=== PATIENT | female | born 1945 | race Caucasian/White ===

== ENCOUNTER 2017-10-04 07:06 | Inpatient (IN) | payer MEDICARE, BC ==
[~2017-10-04 07:06] MED LIST: Bisacodyl 5 MG Tab PO PRN; Ketorolac 15 MG/ML SDV IVPUSH PRN; Lactated Ringers 1,000 ML IV SCH; Lidocaine 1%/Sod Bicarbonate in NS 8.4% 1 ML Syringe IDERM PRN; Magnesium Hydroxide 400 MG/5 ML Susp 30 ML Cup PO PRN; Morphine 2 MG/ML Syringe IVPUSH PRN; Naloxone 0.4 MG/ML SDV IVPUSH PRN; Ondansetron 4 MG/2 ML SDV IVPUSH PRN; Sennosides 8.6 MG Tab PO PRN; Sodium Chloride 0.9% 10 ML Syringe FLUSH PRN
[2017-10-04] MEDS ORDERED: oxyCODONE ER 10 MG TAB.ER PO SCH (08:00)
[2017-10-04] MEDS ORDERED: Pregabalin 25 MG Cap PO SCH (08:00)
[2017-10-04] MEDS ORDERED: Acetaminophen 325 MG Tab PO SCH (09:00)
[2017-10-04] MEDS ORDERED: Propofol 200 MG/20 ML SDV ONE ×2 (09:43→12:02)
[2017-10-04] MEDS ORDERED: fentaNYL 100 MCG/2 ML SDV ONE (09:43)
[2017-10-04] MEDS ORDERED: Bupivacaine 0.75% 30 ML SDV ONE (09:45)
[2017-10-04] MEDS: Bupivacaine 0.25% 30 ML SDV ONE ×2 (11:22→12:05)
[2017-10-04] MEDS: Morphine 8 MG, EPINEPHrine 0.3 MG, Cefuroxime 750 MG, Ketorolac 30 MG, Sodium Chloride ... ONE ×10 (11:23→12:05)
[2017-10-04] MEDS: ceFAZolin 1 GM Vial ONE ×2 (11:23→12:00)
[2017-10-04] MEDS: Iodine/Sodium Iodide 2% Tincture 30 ML Bottle ONE ×2 (11:24→11:57)
[2017-10-04] MEDS ORDERED: Ondansetron 4 MG/2 ML SDV ONE (11:26)
[2017-10-04] MEDS ORDERED: Lidocaine 1% 4 ML ONE (11:26)
[2017-10-04] MEDS ORDERED: ceFAZolin 1 GM Vial ONE (11:26)
[2017-10-04] MEDS: Vancomycin 1 GM SDV ONE ×2 (11:33→12:06)
[2017-10-04] MEDS ORDERED: ePHEDrine/Normal Saline 25 MG/5 ML Syringe ONE (11:52)
--- NOTE | 2017-10-04 12:23 | PCM.PREANE ---
Preanesthetic Assessment - Procedure Proposed Procedure: Right total hip arthroplasty - Anesthesia/Transfusion/Family Hx Anesthesia History: Prior Anesthesia Reaction Type of Anesthesia Reaction: Excessive Somnolence, Excessive Nausea/Vomiting ( with her back fusion ) Other Type of Anesthesia Reaction Comment: hard time waking up Family History of Anesthesia Reaction: No Transfusion History: No Prior Transfusion(s) Additional History: L4-5 lumbar fusion last year, denies any current radiculopathy - Review of Systems General: No Symptoms Pulmonary: No Symptoms Cardiovascular: Other (HTN, HLD) Gastrointestinal: Other (GERD) Neurological: No Symptoms Other: Reports: Depression - Physical Assessment NPO Status Date: 10/04/17 NPO Status Time: 06:45 O2 Sat by Pulse Oximetry: 96 Respiratory Rate: 20 Vital Signs: Last Vital Signs Temp 36.3 C 10/04/17 08:40 Pulse 73 10/04/17 08:40 Resp 20 10/04/17 08:40 BP 165/74 H 10/04/17 08:40 Pulse Ox 96 10/04/17 08:40 Height: 1.6 m Weight: 97 kg ASA Class: 2 Mental Status: Alert & Oriented x3 Airway Class: Mallampati = 2 Dentition: Reports: Normal Dentition Thyro-Mental Finger Breadths: 3 Mouth Opening Finger Breadths: 3 ROM/Head Extension: Full Lungs: Clear to Auscultation, Normal Respiratory Effort Cardiovascular: Regular Rate, Regular Rhythm - Lab Values: Laboratory Last Values MRSA (PCR) Negative 09/21/17 16:16 Blood Type A NEGATIVE 10/04/17 09:10 Gel Antibody Screen Negative 10/04/17 09:10 - Allergies Allergies/Adverse Reactions: Allergies Allergy/AdvReac Type Severity Reaction Status Date / Time tetanus toxoid, adsorbed Allergy ARM Verified 10/04/17 09:26 SWELLING, FEVER - Blood Blood Available: No Product(s) Available: None - Anesthesia Plan Pre-Op Medication Ordered: None - Acknowledgements Anesthesia Type Planned: Spinal (will eleminate duramorph due to patient being easily nauseated) Pt an Appropriate Candidate for the Planned Anesthesia: Yes Alternatives and Risks of Anesthesia Discussed w Pt/Guardian: Yes Pt/Guardian Understands and Agrees with Anesthesia Plan: Yes PreAnesthesia Questionnaire HEENT History: Reports: None Cardiovascular History: Reports: High Cholesterol, Hypertension Respiratory History: Reports: None Gastrointestinal History: Reports: Chronic Constipation, GERD Genitourinary History: Reports: Other (See Below) Other Genitourinary History: frequency [employer] History: Reports: None Musculoskeletal History: Reports: Back Pain, Chronic, Osteoarthritis, Other ( See Below) Other Musculoskeletal History: lumbar spasm, hip pain, right knee pain Neurological History: Reports: Other (See Below) Psychiatric History: Reports: Depression, Other (See Below) Other Psychiatric History: insomnia Endocrine/Metabolic History: Reports: Osteopenia Hematologic History: Reports: None Immunologic History: Reports: None Oncologic (Cancer) History: Reports: None Dermatologic History: Reports: Other (See Below) Other Dermatologic History: onchomycosis, dermatits, actinic keratosis, seborrheic keratoses - Past Surgical History Head Surgeries/Procedures: Reports: None HEENT Surgical History: Reports: Cataract Surgery, Tonsillectomy Cardiovascular Surgical History: Reports: None Respiratory Surgical History: Reports: None GI Surgical History: Reports: Appendectomy, Colonoscopy Female Surgical History: Reports: D&C Male Surgical History: Reports: None Endocrine Surgical History: Reports: None Neurological Surgical History: Reports: Spinal Fusion Other Neurological Surgeries/Procedures: L4L5 fusion Musculoskeletal Surgical History: Reports: Other (See Below) Other Musculoskeletal Surgeries/Procedures:: back surgery Oncologic Surgical History: Reports: None - SUBSTANCE USE Smoking Status *Q: Never Smoker Second Hand Smoke Exposure: No Recreational Drug Use History: No - HOME MEDS Home Medications: Home Meds Acetaminophen [Pain Reliever] 500 mg PO Q6H PRN 10/01/17 [History] Aspirin 81 mg PO DAILY 10/01/17 [History] Ca Carbonate/Vitamin D3/Vit K [Calcium + D Soft Chewable Tab] 2 tab PO DAILY 12/11 [History] Cholecalciferol (Vitamin D3) [Vitamin D3] 1,000 unit PO DAILY 10/01/17 [History] Diazepam [Valium] 2 mg PO Q2H PRN 10/01/17 [History] Docusate Sodium [Colace] 100 mg PO BID PRN 10/01/17 [History] Fish Oil/Wendel-3 Fatty Acids [Fish Oil 1,000 MG] 1,000 mg PO DAILY 10/01/17 [ History] Gabapentin [Neurontin] 300 mg PO TID 10/01/17 [History] Gluc 2KCl/Chondr/Everett Hy/Hy Ac [Glucosamine & Chondroitin Cap] 2 tab PO DAILY [History] Multivitamin [Poly-Vitamin] 1 tab PO DAILY 10/01/17 [History] Naproxen Sodium [Aleve] 220 mg PO BID PRN 10/01/17 [History] Omeprazole 40 mg PO DAILY 10/01/17 [History] Pravastatin Sodium 20 mg PO BEDTIME 10/01/17 [History] Ranitidine HCl [Zantac] 150 mg PO DAILY 10/01/17 [History] Sertraline [Zoloft] 100 mg PO DAILY 10/01/17 [History] Triamterene/Hydrochlorothiazid [Triamterene-HCTZ 37.5-25 MG] 1 tab PO DAILY 12/11 [History] Zolpidem Tartrate [Ambien] 5 mg PO BEDTIME PRN 10/01/17 [History] traMADol HCl [Tramadol HCl] 1 - 2 tab PO Q6H PRN 10/01/17 [History] - CURRENT (IN HOUSE) MEDS Current Meds: Current Medications Aspirin (Ecotrin) 325 mg PO BID RAUL Bisacodyl (Dulcolax) 5 mg PO DAILY PRN PRN Reason: Constipation Cyclobenzaprine HCl (Flexeril) 10 mg PO TID PRN PRN Reason: Spasms Docusate Sodium (Colace) 100 mg PO BID RAUL Famotidine (Pepcid) 20 mg PO Q12H [facility] Lactated Ringer's (Ringers, Lactated) 1,000 mls @ 125 mls/hr IV ASDIRECTED [facility] Last Admin: 10/04/17 09:05 Dose: 125 mls/hr Cefazolin Sodium/Dextrose 2 gm (/ Premix) 50 mls @ 100 mls/hr IV Q8H [facility] Stop: 10/05/17 11:59 Ketorolac Tromethamine (Toradol) 15 mg IVPUSH Q6H PRN PRN Reason: Pain Lidocaine/Sodium Bicarbonate (Buffered Lidocaine 1% In Ns 8.4%) 0.25 ml IDERM ONETIME PRN PRN Reason: Prior to IV Start Magnesium Hydroxide (Milk Of Magnesia) 30 ml PO BID PRN PRN Reason: Constipation Morphine Sulfate (Morphine) 2 mg IVPUSH Q2H PRN PRN Reason: Breakthrough Pain Naloxone HCl (Narcan) 0.1 mg IVPUSH Q5M PRN PRN Reason: Oversedation Ondansetron HCl (Zofran) 4 mg IVPUSH Q6H PRN PRN Reason: Nausea/Vomiting Oxycodone/Acetaminophen (Percocet 325-5 Mg) 1 - 2 tab PO Q4H PRN PRN Reason: Pain Senna (Senna) 8.6 mg PO BID PRN PRN Reason: Constipation Sodium Chloride (Saline Flush) 10 ml FLUSH ASDIRECTED PRN PRN Reason: Keep Vein Open Discontinued Medications Acetaminophen (Tylenol) 975 mg PO ONETIME [facility] Stop: 10/04/17 12:00 Last Admin: 10/04/17 09:54 Dose: 975 mg Bupivacaine HCl (Marcaine 0.25%) Confirm Administered Dose 30 ml .ROUTE .STK- MED ONE Stop: 10/04/17 09:11 Last Admin: 10/04/17 11:22 Dose: 30 ml Bupivacaine HCl (Sensorcaine-Mpf 0.75%) Confirm Administered Dose 30 ml .ROUTE .STK-MED ONE Stop: 10/04/17 09:46 Cefazolin Sodium (Ancef) Confirm Administered Dose 2 gm .ROUTE .STK-MED ONE Stop: 10/04/17 09:11 Last Admin: 10/04/17 11:23 Dose: 2 gm Cefazolin Sodium (Ancef) Confirm Administered Dose 2 gm .ROUTE .STK-MED ONE Stop: 10/04/17 11:27 Morphine Sulfate 8 mg/Epinephrine HCl 0.3 mg/Cefuroxime Sodium 750 mg/Ketorolac Tromethamine 30 mg/Sodium Chloride 27.9 ml 0 mg .XX ONETIME ONE Stop: 10/04/17 10:01 Last Admin: 10/04/17 11:23 Dose: 788.3 mg Ephedrine Sulfate (Ephedrine In Ns) Confirm Administered Dose 25 mg .ROUTE .STK- MED ONE Stop: 10/04/17 11:53 Fentanyl (Sublimaze) Confirm Administered Dose 100 mcg .ROUTE .STK-MED ONE Stop: 10/04/17 09:44 Lidocaine HCl (Xylocaine-Mpf 1%) Confirm Administered Dose 4 mls @ as directed .ROUTE .STK-MED ONE Stop: 10/04/17 11:27 Iodine (Iodine 2% Mild Tincture) Confirm Administered Dose 30 ml .ROUTE .STK- MED ONE Stop: 10/04/17 09:11 Last Admin: 10/04/17 11:24 Dose: 18 ml Ondansetron HCl (Zofran) Confirm Administered Dose 4 mg .ROUTE .STK-MED ONE Stop: 10/04/17 11:27 Oxycodone HCl (Oxycontin) 10 mg PO ONETIME [facility] Stop: 10/04/17 12:00 Last Admin: 10/04/17 09:55 Dose: 10 mg Pregabalin (Lyrica) 50 mg PO ONETIME [facility] Stop: 10/04/17 11:00 Last Admin: 10/04/17 09:56 Dose: 50 mg Propofol (Diprivan 20 Ml) Confirm Administered Dose 400 mg .ROUTE .STK-MED ONE Stop: 10/04/17 09:44 Propofol (Diprivan 20 Ml) Confirm Administered Dose 200 mg .ROUTE .STK-MED ONE Stop: 10/04/17 12:03 Tranexamic Acid (Cyklokapron) Confirm Administered Dose 1,000 mg .ROUTE .STK- MED ONE Stop: 10/04/17 09:11 Last Admin: 10/04/17 11:26 Dose: 1,000 mg Vancomycin HCl (Vancomycin) Confirm Administered Dose 1 gm .ROUTE .STK-MED ONE Stop: 10/04/17 09:11 Last Admin: 10/04/17 11:33 Dose: 1 gm
--- NOTE | 2017-10-04 13:09 | CR ---
Pelvis and right hip: AP view of the pelvis was obtained as well as lateral view of the right hip. Recently placed right hip prosthesis is seen. Components are aligned. Severe joint space narrowing is noted within the left hip. Lower lumbar spine surgery is noted. Bony structures are osteopenic. Impression: 1. Satisfactory radiographic appearance of recently placed right hip prosthesis. 2. Other findings as described above. Diagnostic code #3
[2017-10-04] MEDS ORDERED: Meperidine PF 50 MG/ML Syringe IVPUSH PRN (13:20)
[2017-10-04] MEDS ORDERED: diphenhydrAMINE 50 MG/ML SDV IVPUSH PRN (13:20)
[2017-10-04] MEDS ORDERED: Ondansetron 4 MG/2 ML SDV IVPUSH PRN (13:20)
--- NOTE | 2017-10-04 13:20 | PCM.POSTAN ---
POST ANESTHESIA ASSESSMENT - MENTAL STATUS Mental Status: Alert, Oriented - VITAL SIGNS Pulse Rate: 63 SaO2: 96 Resp Rate: 11 Blood Pressure: 137/63 Temperature: 36.6 C - RESPIRATORY Respiratory Status: Respiratory Rate WNL, Airway Patent, O2 Saturation Stable, Supplemental Oxygen - CARDIOVASCULAR CV Status: Pulse Rate WNL, Blood Pressure Stable - GASTROINTESTINAL GI Status: No Symptoms - PAIN Pain Score: 0 - POST OP HYDRATION Hydration Status: Adequate & Stable
[2017-10-04] MEDS ORDERED: Docusate Sodium 100 MG Cap PO PRN (14:09)
[2017-10-04] MEDS ORDERED: Diazepam 2 MG Tab PO PRN (14:09)
[2017-10-04] MEDS ORDERED: Zolpidem 5 MG Tab PO PRN (14:09)
[2017-10-04] MEDS: Acetaminophen/oxyCODONE 325-5 MG Tab PO PRN ×2 (14:21→21:43)
--- NOTE | 2017-10-04 17:27 | PCM.OPNOTE ---
- General Post-Op/Procedure Note Date of Surgery/Procedure: 10/04/17 Operative Procedure(s): right total hip arthroplasty Pre Op Diagnosis: right hip osteoarthrosis Post-Op Diagnosis: Same Anesthesia Technique: Local, MAC, Spinal Primary Surgeon: Gordy Cloud Anesthesia Provider: Arron Perez Engagement Quality Consultant: Nell Martinez Engagement Quality Consultant: Brooklyn Earl EBL in mLs: 300 Complications: None Condition: Good Free Text/Narrative:: Intake & Output 10/04/17 10/04/17 10/04/17 06:59 14:59 22:59 Intake Total 400 Output Total 50 400 Balance -50 0 size 52 cup screw used MDM 38/22.2 components size 4 accolade 2 stem
[2017-10-04] MEDS: Cyclobenzaprine 10 MG Tab PO PRN (17:38)
[2017-10-04] MEDS: ceFAZolin 2 GM in Premix Bag 1 BAG IV SCH (18:37)
[2017-10-04] MEDS ORDERED: Scopolamine 1.5 MG Transdermal Patch TRDERM PRN (20:00)
[2017-10-04] MEDS ORDERED: Metoclopramide 10 MG/2 ML SDV IVPUSH PRN (20:46)
[2017-10-04] MEDS ORDERED: Simvastatin 10 MG Tab PO SCH (21:00)
[2017-10-04] MEDS ORDERED: Famotidine 20 MG Tab PO SCH (21:00)
[2017-10-04] MEDS: Gabapentin 300 MG Cap PO SCH (21:14)
[2017-10-04] MEDS: Docusate Sodium 100 MG Cap PO SCH (21:14)
[2017-10-04] MEDS ORDERED: hydrALAZINE 20 MG/ML SDV IVPUSH PRN ×2 (22:35→22:36)
[2017-10-04] MEDS ORDERED: Metoprolol Tartrate 5 MG/5 ML SDV IVPUSH PRN ×2 (22:35→22:36)
[2017-10-05] MEDS: ceFAZolin 2 GM in Premix Bag 1 BAG IV SCH ×2 (04:38→10:35)
--- NOTE | 2017-10-05 07:02 | PCM.CONS ---
H&P History of Present Illness - General Date of Service: 10/05/17 Admit Problem/Dx: Admission Diagnosis/Problem Admission Diagnosis/Problem Osteoarthritis of hip Source of Information: Patient, Old Records, Provider, RN, RN Notes Reviewed History Limitations: Reports: No Limitations - History of Present Illness Initial Comments - Free Text/Narative: Dora Pablo is a 72 yo female patient of Dr. Cloud who is post-operative day 1 of right JESSICA. Hospital medicine was consulted for post-operative medical care. At this time she is resting comfortably in bed. Pain is controlled. She denies any chest pain, shortness of breath, palpitations, nausea, or vomiting. She reports some lightheadedness, however she says this is nothing new for her and is improving. She carries a history of: HTN, HLD, Depression, Insomnia, GERD, OA, constipation, osteopenia, chronic back pain. She was never a smoker. She is a full code. Her primary care provider is Dr. Geni Mcnamara. Right Hip Pain Score (Numeric/FACES): 5 - Related Data Allergies/Adverse Reactions: Allergies Allergy/AdvReac Type Severity Reaction Status Date / Time tetanus toxoid, adsorbed Allergy ARM Verified 10/04/17 09:26 SWELLING, FEVER Home Medications: Home Meds Cholecalciferol (Vitamin D3) [Vitamin D3] 1,000 unit PO DAILY 10/01/17 [History] Gabapentin [Neurontin] 300 mg PO TID 10/01/17 [History] Gluc 2KCl/Chondr/Everett Hy/Hy Ac [Glucosamine & Chondroitin Cap] 2 tab PO DAILY [History] Multivitamin [Poly-Vitamin] 1 tab PO DAILY 10/01/17 [History] Omeprazole 40 mg PO DAILY 10/01/17 [History] Pravastatin Sodium 20 mg PO BEDTIME 10/01/17 [History] Sertraline [Zoloft] 100 mg PO DAILY 10/01/17 [History] Triamterene/Hydrochlorothiazid [Triamterene-HCTZ 37.5-25 MG] 1 tab PO DAILY 12/11 [History] Zolpidem Tartrate [Ambien] 5 mg PO BEDTIME PRN 10/01/17 [History] traMADol HCl [Tramadol HCl] 1 - 2 tab PO Q6H PRN 10/01/17 [History] Acetaminophen [Pain Reliever] 500 mg PO Q6H PRN #0 10/04/17 [Rx] Acetaminophen/oxyCODONE [Percocet 325-5 MG] 1 - 2 tab PO Q6H PRN #60 tablet 03/13 [Rx] Aspirin [Ecotrin] 325 mg PO BID #84 tab.ec 10/04/17 [Rx] Bisacodyl [Dulcolax] 5 mg PO DAILY PRN tablet 10/04/17 [Rx] Docusate Sodium [Colace] 100 mg PO BID cap 10/04/17 [Rx] Magnesium Hydroxide [Milk of Magnesia] 30 ml PO BID PRN cup 10/04/17 [Rx] Ranitidine HCl 150 mg PO DAILY 10/04/17 [Rx] Sennosides [Senna] 8.6 mg PO BID PRN tablet 10/04/17 [Rx] Past Medical History HEENT History: Reports: None Cardiovascular History: Reports: High Cholesterol, Hypertension Respiratory History: Reports: None Gastrointestinal History: Reports: Chronic Constipation, GERD Other Gastrointestinal History: BMs are sometimes loose and then sometimes she is constipated. 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 Musculoskeletal History: Reports: Back Pain, Chronic, Osteoarthritis, Other ( See Below) Other Musculoskeletal History: lumbar spasm, hip pain, right knee pain Neurological History: Reports: Other (See Below) Psychiatric History: Reports: Depression, Other (See Below) Other Psychiatric History: insomnia Endocrine/Metabolic History: Reports: Osteopenia Hematologic History: Reports: None Immunologic History: Reports: None Oncologic (Cancer) History: Reports: None Dermatologic History: Reports: Other (See Below) Other Dermatologic History: onchomycosis, dermatits, actinic keratosis, seborrheic keratoses - Infectious Disease History Infectious Disease History: Reports: Chicken Pox, Measles, Mumps - Past Surgical History Head Surgeries/Procedures: Reports: None HEENT Surgical History: Reports: Cataract Surgery, Tonsillectomy Cardiovascular Surgical History: Reports: None Respiratory Surgical History: Reports: None GI Surgical History: Reports: Appendectomy, Colonoscopy Female Surgical History: Reports: D&C Male Surgical History: Reports: None Endocrine Surgical History: Reports: None Neurological Surgical History: Reports: Spinal Fusion Other Neurological Surgeries/Procedures: L4L5 fusion Musculoskeletal Surgical History: Reports: Other (See Below) Other Musculoskeletal Surgeries/Procedures:: back surgery Oncologic Surgical History: Reports: None Social & Family History - Family History Family Medical History: Noncontributory - Tobacco Use Smoking Status *Q: Never Smoker Second Hand Smoke Exposure: No - Caffeine Use Caffeine Use: Reports: Soda - Recreational Drug Use Recreational Drug Use: No H&P Review of Systems - Review of Systems: Review Of Systems: See Below General: Reports: No Symptoms HEENT: Reports: No Symptoms Pulmonary: Reports: No Symptoms Cardiovascular: Reports: No Symptoms Gastrointestinal: Reports: No Symptoms Genitourinary: Reports: No Symptoms Musculoskeletal: Reports: Joint Pain Skin: Reports: No Symptoms Psychiatric: Reports: No Symptoms Neurological: Reports: No Symptoms Hematologic/Lymphatic: Reports: No Symptoms Immunologic: Reports: No Symptoms Exam - Exam Exam: See Below - Vital Signs Vital Signs: Last Vital Signs Temp 99.5 F 10/05/17 00:53 Pulse 72 10/05/17 00:53 Resp 14 10/05/17 00:53 BP 123/50 L 10/05/17 00:53 Pulse Ox 97 10/05/17 00:53 Weight: 213 lb 13.57 oz - Exam Quality Assessment: DVT Prophylaxis General: Alert, Oriented, Cooperative. No: Mild Distress HEENT: Conjunctiva Clear, EACs Clear, EOMI, Hearing Intact, Mucosa Moist & [place] , Posterior Pharynx Clear, PERRLA Neck: Supple, Trachea Midline. No: JVD Lungs: Clear to Auscultation, Normal Respiratory Effort Cardiovascular: Regular Rate, Regular Rhythm GI/Abdominal Exam: Normal Bowel Sounds, Soft, Non-Tender, No Distention (Female) Exam: Deferred Rectal (Female) Exam: Deferred Back Exam: Normal Inspection, Full Range of Motion Extremities: No Pedal Edema, Normal Capillary Refill, Leg Pain, Limited Range of Motion, Other (Bandage in place on right leg. Bandage is dry and intact. Cooling pack in place ) Peripheral Pulses: 2+: Radial (L), Radial (R), Posterior Tibial (L), Posterior Tibial (R), Dorsalis Pedis (L), Dorsalis Pedis (R) Skin: Warm, Dry, Intact Neurological: Cranial Nerves Intact (grossly ) Neuro Extensive - Mental Status: Alert, Oriented x3, Normal Mood/Affect, Normal Cognition Psychiatric: Alert, Normal Affect, Normal Mood - Patient Data Lab Results Last 24 hrs: Laboratory Results - last 24 hr 10/04/17 10/05/17 Range/Units 09:10 05:45 WBC 7.21 (3.98-10.04) K/mm3 RBC 3.57 L (3.98-5.22) M/mm3 Hgb 10.2 L (11.2-15.7) gm/L Hct 31.4 L (34.1-44.9) % MCV 88.0 (79.4-94.8) fl MCH 28.6 (25.6-32.2) pg MCHC 32.5 (32.2-35.5) g/dl RDW Std Deviation 42.6 (36.4-46.3) fL Plt Count 172 L (182-369) K/mm3 MPV 11.1 (9.4-12.3) fl Blood Type A NEGATIVE Gel Antibody Screen Negative Result Diagrams: 10/05/17 05:45 10/05/17 05:45 Consult PN Assessment/Plan POD#: 1 (1) S/P total hip arthroplasty SNOMED Code(s): 145283336186, 094558473799 Code(s): Z96.649 - PRESENCE OF UNSPECIFIED ARTIFICIAL HIP JOINT Priority: High Current Visit: Yes Qualifiers: Laterality: right Qualified Code(s): Z96.641 - Presence of right artificial hip joint (2) Osteoarthritis SNOMED Code(s): 035053253 Code(s): M19.90 - UNSPECIFIED OSTEOARTHRITIS, UNSPECIFIED SITE Priority: High Current Visit: Yes Qualifiers: Osteoarthritis location: hip Osteoarthritis type: primary Laterality: right Qualified Code(s): M16.11 - Unilateral primary osteoarthritis, right hip (3) HTN (hypertension) SNOMED Code(s): 48927205 Code(s): I10 - ESSENTIAL (PRIMARY) HYPERTENSION Priority: Medium Current Visit: No Qualifiers: Hypertension type: unspecified Qualified Code(s): I10 - Essential (primary ) hypertension (4) HLD (hyperlipidemia) SNOMED Code(s): 44895374 Code(s): E78.5 - HYPERLIPIDEMIA, UNSPECIFIED Priority: Medium Current Visit: No Qualifiers: Hyperlipidemia type: unspecified Qualified Code(s): E78.5 - Hyperlipidemia , unspecified (5) Other specified depressive episodes SNOMED Code(s): 88995487 Code(s): F32.89 - OTHER SPECIFIED DEPRESSIVE EPISODES Priority: Medium Current Visit: No (6) Insomnia SNOMED Code(s): 276429404 Code(s): G47.00 - INSOMNIA, UNSPECIFIED Priority: Low Current Visit: No Qualifiers: Insomnia type: unspecified Qualified Code(s): G47.00 - Insomnia, unspecified (7) GERD (gastroesophageal reflux disease) SNOMED Code(s): 889042347 Code(s): K21.9 - GASTRO-ESOPHAGEAL REFLUX DISEASE WITHOUT ESOPHAGITIS Priority: Medium Current Visit: No Qualifiers: Esophagitis presence: esophagitis presence not specified Qualified Code(s) : K21.9 - Gastro-esophageal reflux disease without esophagitis (8) Chronic constipation SNOMED Code(s): 143037440 Code(s): K59.09 - OTHER CONSTIPATION Priority: Low Current Visit: No (9) Osteopenia SNOMED Code(s): 689434936 Code(s): M85.80 - OTH DISRD OF BONE DENSITY AND STRUCTURE, UNSPECIFIED SITE Priority: Medium Current Visit: No Qualifiers: Osteopenia location: unspecified Qualified Code(s): M85.80 - Other specified disorders of bone density and structure, unspecified site (10) Chronic back pain SNOMED Code(s): 326607313 Code(s): M54.9 - DORSALGIA, UNSPECIFIED; G89.29 - OTHER CHRONIC PAIN Priority: Medium Current Visit: No Qualifiers: Back pain location: back pain in unspecified location Back pain laterality : unspecified Qualified Code(s): M54.9 - Dorsalgia, unspecified; G89.29 - Other chronic pain Problem List Initiated/Reviewed/Updated: Yes Plan: I/P: Acute: S/P right total hip arthroplasty - post-operative day 1 -DVT prophylaxis and pain management per primary care team -PT/OT -IS/RT -Monitor oxygen saturation -Titrate oxygen as needed -Vital signs stable -Monitor labs -Pre-operative Hgb was 12.9, now 10.2 -Pre-operative GFR was 48, now 44 Osteoarthritis of right hip -Pain management per primary care team Chronic: HTN HLD Depression Insomnia GERD Chronic constipation Osteopenia Chronic back pain Plan: CM for discharge planning GI prophylaxis Home medications as indicated Other orders as listed above Routine AM labs She is a full code. Her PCP is Dr. Geni Mcnamara Thank you for allowing us to participate in the care of this patient!! From a hospitalist standpoint she is doing well. She has been ambulating and working with PT/OT. She has urinated. No concerns noted by patient or nursing. Vitals and labs have been stable. She is cleared for discharge pending primary team approval. Requesting Provider: Dr. Cloud Date Consult Requested: 10/04/17 Reason for Consult: Post-operative medical care Patient History Reviewed: Yes Admission H&P Reviewed: Yes Time Spent (in minutes): 45
[2017-10-05] MEDS: Cyclobenzaprine 10 MG Tab PO PRN (07:41)
[2017-10-05] MEDS: Acetaminophen/oxyCODONE 325-5 MG Tab PO PRN ×2 (07:41→12:31)
--- NOTE | 2017-10-05 08:03 | PCM.SURGPN ---
- General Info Date of Service: 10/05/17 POD#: 1 Functional Status: Reports: Pain Controlled, Tolerating Diet, Ambulating, Urinating, Incentive Spirometry, Other (The pt reports she is doing well and has less pain at right hip than pain noted at left hip at this time.) - Patient Data Vitals - Most Recent: Last Vital Signs Temp 99.5 F 10/05/17 00:53 Pulse 72 10/05/17 00:53 Resp 14 10/05/17 00:53 BP 123/50 L 10/05/17 00:53 Pulse Ox 97 10/05/17 00:53 Weight - Most Recent: 213 lb 13.57 oz I&O - Last 24 Hours: Intake & Output 10/04/17 10/05/17 10/05/17 22:59 06:59 14:59 Intake Total 400 Output Total 400 Balance 0 Lab Results Last 24 Hrs: Laboratory Results - last 24 hr 10/04/17 10/05/17 10/05/17 Range/Units 09:10 05:45 05:45 WBC 7.21 (3.98-10.04) K/mm3 RBC 3.57 L (3.98-5.22) M/mm3 Hgb 10.2 L (11.2-15.7) gm/L Hct 31.4 L (34.1-44.9) % MCV 88.0 (79.4-94.8) fl MCH 28.6 (25.6-32.2) pg MCHC 32.5 (32.2-35.5) g/dl RDW Std Deviation 42.6 (36.4-46.3) fL Plt Count 172 L (182-369) K/mm3 MPV 11.1 (9.4-12.3) fl Sodium 142 (136-145) mEq/L Potassium 4.0 (3.5-5.1) mEq/L Chloride 106 (98-107) mEq/L Carbon Dioxide 28 (21-32) mEq/L Anion Gap 12.0 (5-15) BUN 28 H (7-18) mg/dL Creatinine 1.2 H (0.55-1.02) mg/dL Est Cr Clr Drug Dosing 34.02 mL/min Estimated GFR (MDRD) 44 (>60) mL/min BUN/Creatinine Ratio 23.3 H (14-18) Glucose 117 H (83-115) mg/dL Calcium 8.9 (8.5-10.1) mg/dL Total Bilirubin 0.3 (0.2-1.0) mg/dL AST 31 (15-37) U/L ALT 23 (14-59) U/L Alkaline Phosphatase 72 (46-116) U/L Total Protein 6.3 L (6.4-8.2) g/dl Albumin 3.0 L (3.4-5.0) g/dl Globulin 3.3 gm/dL Albumin/Globulin Ratio 0.9 L (1-2) Blood Type A NEGATIVE Gel Antibody Screen Negative Med Orders - Current: Current Medications Aspirin (Ecotrin) 325 mg PO BID [facility] Bisacodyl (Dulcolax) 5 mg PO DAILY PRN PRN Reason: Constipation Cholecalciferol (Vitamin D3) 1,000 units PO DAILY [facility] Cyclobenzaprine HCl (Flexeril) 10 mg PO TID PRN PRN Reason: Spasms Last Admin: 10/05/17 07:41 Dose: 10 mg Diazepam (Valium) 2 mg PO Q2H PRN PRN Reason: Anxiety Docusate Sodium (Colace) 100 mg PO BID [facility] Last Admin: 10/04/17 21:14 Dose: 100 mg Docusate Sodium (Colace) 100 mg PO BID PRN PRN Reason: constiption Famotidine (Pepcid) 20 mg PO DAILY [facility] Gabapentin (Neurontin) 300 mg PO TID [facility] Last Admin: 10/04/17 21:14 Dose: 300 mg Hydralazine HCl (Apresoline) 10 mg IVPUSH Q4H PRN PRN Reason: Hypertension Cefazolin Sodium/Dextrose 2 gm (/ Premix) 50 mls @ 100 mls/hr IV Q8H [facility] Stop: 10/05/17 11:59 Last Admin: 10/05/17 04:38 Dose: 100 mls/hr Ketorolac Tromethamine (Toradol) 15 mg IVPUSH Q6H PRN PRN Reason: Pain Last Admin: 10/04/17 17:38 Dose: 15 mg Magnesium Hydroxide (Milk Of Magnesia) 30 ml PO BID PRN PRN Reason: Constipation Metoclopramide HCl (Reglan) 5 mg IVPUSH Q6H PRN PRN Reason: Nausea/Vomiting Metoprolol Tartrate (Lopressor) 5 mg IVPUSH Q4H PRN PRN Reason: Tachycardia Miscellaneous Information (Remove Patch) 1 ea TRDERM Q72H PRN PRN Reason: WHEN PATCH PLACED Morphine Sulfate (Morphine) 2 mg IVPUSH Q2H PRN PRN Reason: Breakthrough Pain Multivitamins (Thera) 1 each PO DAILY [facility] Naloxone HCl (Narcan) 0.1 mg IVPUSH Q5M PRN PRN Reason: Oversedation Ondansetron HCl (Zofran) 4 mg IVPUSH Q6H PRN PRN Reason: Nausea/Vomiting Last Admin: 10/04/17 19:16 Dose: 4 mg Oxycodone/Acetaminophen (Percocet 325-5 Mg) 1 - 2 tab PO Q4H PRN PRN Reason: Pain Last Admin: 10/05/17 07:41 Dose: 2 tab Pantoprazole Sodium (Protonix) 40 mg PO DAILY [facility] Scopolamine (Transderm-Scop) 1.5 mg TRDERM Q72H PRN PRN Reason: Nausea Last Admin: 10/04/17 21:14 Dose: 1.5 mg Senna (Senna) 8.6 mg PO BID PRN PRN Reason: Constipation Sertraline HCl (Zoloft) 100 mg PO DAILY [facility] Simvastatin (Zocor) 10 mg PO BEDTIME [facility] Last Admin: 10/04/17 21:14 Dose: 10 mg Sodium Chloride (Saline Flush) 10 ml FLUSH ASDIRECTED PRN PRN Reason: Keep Vein Open Triamterene/HCTZ (Dyazide 25-37.5 Mg) 1 each PO DAILY [facility] Zolpidem Tartrate (Ambien) 5 mg PO BEDTIME PRN PRN Reason: Insomnia Discontinued Medications Acetaminophen (Tylenol) 975 mg PO ONETIME [facility] Stop: 10/04/17 12:00 Last Admin: 10/04/17 09:54 Dose: 975 mg Bupivacaine HCl (Marcaine 0.25%) Confirm Administered Dose 30 ml .ROUTE .STK- MED ONE Stop: 10/04/17 09:11 Last Admin: 10/04/17 12:05 Dose: 30 ml Bupivacaine HCl (Sensorcaine-Mpf 0.75%) Confirm Administered Dose 30 ml .ROUTE .STK-MED ONE Stop: 10/04/17 09:46 Cefazolin Sodium (Ancef) Confirm Administered Dose 2 gm .ROUTE .STK-MED ONE Stop: 10/04/17 09:11 Last Admin: 10/04/17 12:00 Dose: 2 gm Cefazolin Sodium (Ancef) Confirm Administered Dose 2 gm .ROUTE .STK-MED ONE Stop: 10/04/17 11:27 Morphine Sulfate 8 mg/Epinephrine HCl 0.3 mg/Cefuroxime Sodium 750 mg/Ketorolac Tromethamine 30 mg/Sodium Chloride 27.9 ml 0 mg .XX ONETIME ONE Stop: 10/04/17 10:01 Last Admin: 10/04/17 12:05 Dose: 788.3 mg Diphenhydramine HCl (Benadryl) 25 mg IVPUSH Q6H PRN PRN Reason: Pruritis Stop: 10/04/17 18:00 Ephedrine Sulfate (Ephedrine In Ns) Confirm Administered Dose 25 mg .ROUTE .STK- MED ONE Stop: 10/04/17 11:53 Famotidine (Pepcid) 20 mg PO Q12H [facility] Fentanyl (Sublimaze) Confirm Administered Dose 100 mcg .ROUTE .STK-MED ONE Stop: 10/04/17 09:44 Lactated Ringer's (Ringers, Lactated) 1,000 mls @ 125 mls/hr IV ASDIRECTED [facility] Last Admin: 10/04/17 09:05 Dose: 125 mls/hr Lidocaine HCl (Xylocaine-Mpf 1%) Confirm Administered Dose 4 mls @ as directed .ROUTE .STK-MED ONE Stop: 10/04/17 11:27 Iodine (Iodine 2% Mild Tincture) Confirm Administered Dose 30 ml .ROUTE .STK- MED ONE Stop: 10/04/17 09:11 Last Admin: 10/04/17 11:57 Dose: 18 ml Lidocaine/Sodium Bicarbonate (Buffered Lidocaine 1% In Ns 8.4%) 0.25 ml IDERM ONETIME PRN PRN Reason: Prior to IV Start Meperidine HCl (Demerol) 12.5 mg IVPUSH ONETIME PRN PRN Reason: Shivering Stop: 10/04/17 18:00 Non-Formulary Medication (Gluc 2kcl/Chondr/Everett Hy/Hy Ac [Glucosamine & Chondroitin Cap]) 2 tab PO DAILY [facility] Ondansetron HCl (Zofran) Confirm Administered Dose 4 mg .ROUTE .STK-MED ONE Stop: 10/04/17 11:27 Ondansetron HCl (Zofran) 4 mg IVPUSH ONETIME PRN PRN Reason: Nausea/Vomiting Stop: 10/04/17 18:00 Oxycodone HCl (Oxycontin) 10 mg PO ONETIME [facility] Stop: 10/04/17 12:00 Last Admin: 10/04/17 09:55 Dose: 10 mg Pregabalin (Lyrica) 50 mg PO ONETIME [facility] Stop: 10/04/17 11:00 Last Admin: 10/04/17 09:56 Dose: 50 mg Propofol (Diprivan 20 Ml) Confirm Administered Dose 400 mg .ROUTE .STK-MED ONE Stop: 10/04/17 09:44 Propofol (Diprivan 20 Ml) Confirm Administered Dose 200 mg .ROUTE .STK-MED ONE Stop: 10/04/17 12:03 Tranexamic Acid (Cyklokapron) Confirm Administered Dose 1,000 mg .ROUTE .STK- MED ONE Stop: 10/04/17 09:11 Last Admin: 10/04/17 12:07 Dose: 1,000 mg Vancomycin HCl (Vancomycin) Confirm Administered Dose 1 gm .ROUTE .STK-MED ONE Stop: 10/04/17 09:11 Last Admin: 10/04/17 12:06 Dose: 1 gm - Exam Wound/Incisions: Dressing Dry and Intact General: Alert, Cooperative, No Acute Distress Lungs: Normal Respiratory Effort Extremities: Other (NVS intact for BLE. Left thigh soft, nontender. Anette's negative LLE.) - Problem List Review Problem List Initiated/Reviewed/Updated: Yes - My Orders Last 24 Hours: Active Orders 24 hr Category Date Time Status Patient Status [ADT] Routine ADT 10/04/17 07:02 Active Ambulate [RC] PER UNIT ROUTINE Care 10/04/17 07:02 Active Communication Order [RC] ROUTINE Care 10/04/17 13:20 Inactive May Shower [RC] ASDIRECTED Care 10/04/17 07:02 Active Notify Provider [RC] ASDIRECTED Care 10/04/17 13:20 Active Oxygen Therapy [RC] PRN Care 10/04/17 07:02 Active Pulse Oximetry [RC] ASDIRECTED Care 10/04/17 13:20 Active Up to Chair [RC] ASDIRECTED Care 10/04/17 07:02 Active Vital Signs [RC] Q4H Care 10/04/17 07:02 Inactive Vital Signs [RC] Q4HR Care 10/04/17 14:09 Active Consult to Physician [CONS] Routine Cons 10/04/17 07:02 Active Regular Diet [DIET] Diet 10/04/17 Lunch Active Aspirin [Ecotrin] Med 10/05/17 09:00 Active 325 mg PO BID Bisacodyl [Dulcolax] Med 10/04/17 07:02 Active 5 mg PO DAILY PRN Cholecalciferol (Vitamin D3) [Vitamin D3] Med 10/05/17 09:00 Active 1,000 units PO DAILY Diazepam [Valium] Med 10/04/17 14:09 Active 2 mg PO Q2H PRN Docusate Sodium [Colace] Med 10/04/17 21:00 Active 100 mg PO BID Docusate Sodium [Colace] Med 10/04/17 14:09 Active 100 mg PO BID PRN Famotidine [Pepcid] Med 10/05/17 09:00 Active 20 mg PO DAILY Gabapentin [Neurontin] Med 10/04/17 21:00 Active 300 mg PO TID HCTZ/Triamterene [Dyazide 25-37.5 MG] Med 10/05/17 09:00 Active 1 each PO DAILY Magnesium Hydroxide [Milk of Magnesia] Med 10/04/17 07:02 Active 30 ml PO BID PRN Metoclopramide [Reglan] Med 10/04/17 20:46 Active 5 mg IVPUSH Q6H PRN Metoprolol Tartrate [Lopressor] Med 10/04/17 22:35 Active 5 mg IVPUSH Q4H PRN Morphine Med 10/04/17 07:02 Active 2 mg IVPUSH Q2H PRN Multivitamins,Therapeutic [Thera] Med 10/05/17 09:00 Active 1 each PO DAILY Naloxone [Narcan] Med 10/04/17 07:02 Active 0.1 mg IVPUSH Q5M PRN Ondansetron [Zofran] Med 10/04/17 07:02 Active 4 mg IVPUSH Q6H PRN Pantoprazole [ProTONIX] Med 10/05/17 09:00 Active 40 mg PO DAILY Remove Patch Med 10/04/17 20:57 Active 1 ea TRDERM Q72H PRN Scopolamine [Transderm-Scop] Med 10/04/17 20:00 Active 1.5 mg TRDERM Q72H PRN Sennosides [Senna] Med 10/04/17 07:02 Active 8.6 mg PO BID PRN Sertraline [Zoloft] Med 10/05/17 09:00 Active 100 mg PO DAILY Simvastatin [Zocor] Med 10/04/17 21:00 Active 10 mg PO BEDTIME Zolpidem [Ambien] Med 10/04/17 14:09 Active 5 mg PO BEDTIME PRN ceFAZolin [Ancef] 2 gm Med 10/04/17 19:30 Active Premix Bag 1 bag IV Q8H hydrALAZINE [Apresoline] Med 10/04/17 22:35 Active 10 mg IVPUSH Q4H PRN Antiembolic Hose [OM.PC] Per Unit Routine Oth 10/04/17 07:04 Ordered Ice Therapy [OM.PC] Per Unit Routine Oth 10/04/17 07:03 Ordered Resuscitation Status Routine Resus Stat 10/04/17 07:02 Ordered Medication Orders Aspirin (Ecotrin) 325 mg PO BID [facility] Bisacodyl (Dulcolax) 5 mg PO DAILY PRN PRN Reason: Constipation Cholecalciferol (Vitamin D3) 1,000 units PO DAILY [facility] Cyclobenzaprine HCl (Flexeril) 10 mg PO TID PRN PRN Reason: Spasms Last Admin: 10/05/17 07:41 Dose: 10 mg Admin: 10/04/17 17:38 Dose: 10 mg Diazepam (Valium) 2 mg PO Q2H PRN PRN Reason: Anxiety Docusate Sodium (Colace) 100 mg PO BID [facility] Last Admin: 10/04/17 21:14 Dose: 100 mg Docusate Sodium (Colace) 100 mg PO BID PRN PRN Reason: constiption Famotidine (Pepcid) 20 mg PO DAILY [facility] Gabapentin (Neurontin) 300 mg PO TID [facility] Last Admin: 10/04/17 21:14 Dose: 300 mg Hydralazine HCl (Apresoline) 10 mg IVPUSH Q4H PRN PRN Reason: Hypertension Cefazolin Sodium/Dextrose 2 gm (/ Premix) 50 mls @ 100 mls/hr IV Q8H [facility] Stop: 10/05/17 11:59 Last Admin: 10/05/17 04:38 Dose: 100 mls/hr Infusion: 10/04/17 19:07 Dose: 100 mls/hr Admin: 10/04/17 18:37 Dose: 100 mls/hr Ketorolac Tromethamine (Toradol) 15 mg IVPUSH Q6H PRN PRN Reason: Pain Last Admin: 10/04/17 17:38 Dose: 15 mg Magnesium Hydroxide (Milk Of Magnesia) 30 ml PO BID PRN PRN Reason: Constipation Metoclopramide HCl (Reglan) 5 mg IVPUSH Q6H PRN PRN Reason: Nausea/Vomiting Metoprolol Tartrate (Lopressor) 5 mg IVPUSH Q4H PRN PRN Reason: Tachycardia Miscellaneous Information (Remove Patch) 1 ea TRDERM Q72H PRN PRN Reason: WHEN PATCH PLACED Morphine Sulfate (Morphine) 2 mg IVPUSH Q2H PRN PRN Reason: Breakthrough Pain Multivitamins (Thera) 1 each PO DAILY [facility] Naloxone HCl (Narcan) 0.1 mg IVPUSH Q5M PRN PRN Reason: Oversedation Ondansetron HCl (Zofran) 4 mg IVPUSH Q6H PRN PRN Reason: Nausea/Vomiting Last Admin: 10/04/17 19:16 Dose: 4 mg Oxycodone/Acetaminophen (Percocet 325-5 Mg) 1 - 2 tab PO Q4H PRN PRN Reason: Pain Last Admin: 10/05/17 07:41 Dose: 2 tab Admin: 10/04/17 21:43 Dose: 2 tab Admin: 10/04/17 14:21 Dose: 2 tab Pantoprazole Sodium (Protonix) 40 mg PO DAILY [facility] Scopolamine (Transderm-Scop) 1.5 mg TRDERM Q72H PRN PRN Reason: Nausea Last Admin: 10/04/17 21:14 Dose: 1.5 mg Senna (Senna) 8.6 mg PO BID PRN PRN Reason: Constipation Sertraline HCl (Zoloft) 100 mg PO DAILY [facility] Simvastatin (Zocor) 10 mg PO BEDTIME [facility] Last Admin: 10/04/17 21:14 Dose: 10 mg Sodium Chloride (Saline Flush) 10 ml FLUSH ASDIRECTED PRN PRN Reason: Keep Vein Open Triamterene/HCTZ (Dyazide 25-37.5 Mg) 1 each PO DAILY [facility] Zolpidem Tartrate (Ambien) 5 mg PO BEDTIME PRN PRN Reason: Insomnia - Assessment Assessment (Free Text/Narrative):: POD#1 - s/p right JESSICA - Plan Plan (Free Text/Narrative):: 1. Hgb 10.2. 2. Frequent mobility, TEDs, 325mg ASA BID for VTE prophylaxis. 3. Discharge to home today if cleared by Hospitalist service and meets inpt goals. 4. Outpatient P.T. The pt's case was discussed with Dr. Cloud.
[2017-10-05] MEDS ORDERED: Cholecalciferol (Vitamin D3) 1,000 Unit Tab PO SCH (09:00)
[2017-10-05] MEDS ORDERED: Pantoprazole 40 MG Tab.CR PO SCH (09:00)
[2017-10-05] MEDS ORDERED: Famotidine 20 MG Tab PO SCH (09:00)
[2017-10-05] MEDS ORDERED: Non-Formulary Medication 1 Each (Gluc 2kcl/Chondr/Coll Hy/Hy Ac [Glucosamine & Chondroitin PO SCH (09:00)
[2017-10-05] MEDS ORDERED: Hydrochlorothiazide/Triamterene 25-37.5 MG Cap PO SCH (09:00)
[2017-10-05] MEDS ORDERED: Sertraline 50 MG Tab PO SCH (09:00)
[2017-10-05] MEDS ORDERED: Aspirin 325 MG Tab.EC PO SCH (09:00)
[2017-10-05] MEDS ORDERED: Multivitamins,Therapeutic Tab PO SCH (09:00)
[2017-10-05] MEDS: Gabapentin 300 MG Cap PO SCH ×2 (10:14→14:17)
[2017-10-05] MEDS: Docusate Sodium 100 MG Cap PO SCH (10:14)
--- NOTE | 2017-10-05 10:26 | PCM48HPAN ---
Post Anesthesia Note - EVALUATION WITHIN 48HRS OF ANESTHETIC Vital Signs in Normal Range: Yes Patient Participated in Evaluation: Yes Respiratory Function Stable: Yes Airway Patent: Yes Cardiovascular Function Stable: Yes Hydration Status Stable: Yes Pain Control Satisfactory: Yes Nausea and Vomiting Control Satisfactory: Yes Mental Status Recovered: Yes - COMMENTS/OBSERVATIONS Free Text/Narrative:: Patient denies any anesthetic complications
--- NOTE | 2017-10-06 09:39 | PCM.DCSUM1 ---
Discharge Summary - Hospital Course Brief History: Dora is a 72 yo female who underwent right JESSICA with Dr. Cloud on 10-04-2017. The procedure was completed under spinal anesthesia. The pt tolerated the procedure well and was admitted to the Medical-Surgical Unit. The pt received Ancef torres-operatively. She participated in P.T. and O.T. and progressed well. She was allowed to WBAT and used a FWW for mobility. JESSICA precautions were instructed. The pt's surgical wound was dressed with a Mepilex dressing and remained clean and dry. On POD#1, the pt was started on 325mg ASA BID for VTE prophylaxis. The pt used TEDs and SCDs also. On POD#1, the pt's hemoglobin was 10.2. Medical management was provided by the Hospitalist service and the pt's hospital course was uneventful. On POD#2, the pt was deemed appropriate for discharge to home. - Discharge Data Discharge Date: 10/05/17 Discharge Disposition: Home, Self-Care 01 Condition: Good - Patient Summary/Data Operative Procedure(s) Performed: right total hip arthroplasty Consults: Consultations 10/04/17 07:01 OT Evaluation and Treatment [CONS] Routine PT Evaluation and Treatment [CONS] Routine 10/04/17 07:02 Consult to Physician [CONS] Routine - Patient Instructions Diet: Usual Diet as Tolerated Activity: Apply Ice, As Tolerated, Elevate Extremity, Full Weight Bearing Driving: Do Not Drive Showering/Bathing: May Shower Wound/Incision Care: Keep Operative Site/Wound Site Clean and Dry, Do NOT Change Dressing Notify Provider of: Fever, Increased Pain, Swelling and Redness, Drainage, Nausea and/or Vomiting Other/Special Instructions: Please get up and moving around every hour while awake. This helps to prevent blood clots. Please use your walker and have help with mobility as needed. Please take 325mg Aspirin TWICE daily. The aspirin is being used for blood clot prevention and not for pain management so please do not miss a dose of the medication. You do NOT need to take an additional 81mg aspirin while using the 2 tablets of 325mg aspirin per day. At home, please complete the exercises that you learned during the Hospital stay. Schedule for physical therapy. Follow the total hip precautions. Use the pain medication as needed. The medication may cause drowsiness and constipation. Contact your primary care provider for instructions if you are constipated. You may use a stool softener like docusate sodium or Colace 100mg twice daily and/or a laxative like Miralax daily for constipation. Increase your water and fiber intake while you are using the pain medication. Please try to wean from use of the pain medication as soon as able. Wear the CATRACHO hose during the day and you may remove these at night. Elevate the limb to decrease swelling. Place ice to the area often. Place a towel between your skin and the blue pad. Use the incentive spirometer often. Take deep breaths throughout the day. Increase your protein intake while you are healing. If you have diabetes, please closely monitor your blood sugars and notify your primary care provider with abnormal values. Call the Clinic with questions or concerns - [phone]. - Discharge Plan Prescriptions/Med Rec: Acetaminophen/oxyCODONE [Percocet 325-5 MG] 1 - 2 tab PO Q6H PRN #60 tablet PRN Reason: Pain Aspirin [Ecotrin] 325 mg PO BID #84 tab.ec Home Medications: Home Meds Cholecalciferol (Vitamin D3) [Vitamin D3] 1,000 unit PO DAILY 10/01/17 [History] Gabapentin [Neurontin] 300 mg PO TID 10/01/17 [History] Gluc 2KCl/Chondr/Everett Hy/Hy Ac [Glucosamine & Chondroitin Cap] 2 tab PO DAILY [History] Multivitamin [Poly-Vitamin] 1 tab PO DAILY 10/01/17 [History] Omeprazole 40 mg PO DAILY 10/01/17 [History] Pravastatin Sodium 20 mg PO BEDTIME 10/01/17 [History] Sertraline [Zoloft] 100 mg PO DAILY 10/01/17 [History] Triamterene/Hydrochlorothiazid [Triamterene-HCTZ 37.5-25 MG] 1 tab PO DAILY 12/11 [History] Zolpidem Tartrate [Ambien] 5 mg PO BEDTIME PRN 10/01/17 [History] traMADol HCl [Tramadol HCl] 1 - 2 tab PO Q6H PRN 10/01/17 [History] Acetaminophen [Pain Reliever] 500 mg PO Q6H PRN #0 10/04/17 [Rx] Acetaminophen/oxyCODONE [Percocet 325-5 MG] 1 - 2 tab PO Q6H PRN #60 tablet 03/13 [Rx] Aspirin [Ecotrin] 325 mg PO BID #84 tab.ec 10/04/17 [Rx] Bisacodyl [Dulcolax] 5 mg PO DAILY PRN tablet 10/04/17 [Rx] Docusate Sodium [Colace] 100 mg PO BID cap 10/04/17 [Rx] Magnesium Hydroxide [Milk of Magnesia] 30 ml PO BID PRN cup 10/04/17 [Rx] Ranitidine HCl 150 mg PO DAILY 10/04/17 [Rx] Sennosides [Senna] 8.6 mg PO BID PRN tablet 10/04/17 [Rx] Referrals: Nell Martinez PA-C [Physician Auto Clocks Repairer] - (Please follow up with Nell Martinez on 10/11/2017 at 1000amd and a second on 10/19/17 at 145pm.) - Patient Data Vitals - Most Recent: Last Vital Signs Temp 98.1 F 10/05/17 11:23 Pulse 73 10/05/17 11:23 Resp 20 10/05/17 11:23 BP 125/62 10/05/17 11:49 Pulse Ox 91 L 10/05/17 11:23 Weight - Most Recent: 213 lb 13.57 oz I&O - Last 24 hours: Intake & Output 10/05/17 10/06/17 10/06/17 22:59 06:59 14:59 Intake Total 950 Output Total 600 Balance 350 Med Orders - Current: Current Medications Discontinued Medications Acetaminophen (Tylenol) 975 mg PO ONETIME [facility] Stop: 10/04/17 12:00 Last Admin: 10/04/17 09:54 Dose: 975 mg Aspirin (Ecotrin) 325 mg PO BID [facility] Last Admin: 10/05/17 10:14 Dose: 325 mg Bisacodyl (Dulcolax) 5 mg PO DAILY PRN PRN Reason: Constipation Bupivacaine HCl (Marcaine 0.25%) Confirm Administered Dose 30 ml .ROUTE .STK- MED ONE Stop: 10/04/17 09:11 Last Admin: 10/04/17 12:05 Dose: 30 ml Bupivacaine HCl (Sensorcaine-Mpf 0.75%) Confirm Administered Dose 30 ml .ROUTE .STK-MED ONE Stop: 10/04/17 09:46 Cefazolin Sodium (Ancef) Confirm Administered Dose 2 gm .ROUTE .STK-MED ONE Stop: 10/04/17 09:11 Last Admin: 10/04/17 12:00 Dose: 2 gm Cefazolin Sodium (Ancef) Confirm Administered Dose 2 gm .ROUTE .STK-MED ONE Stop: 10/04/17 11:27 Cholecalciferol (Vitamin D3) 1,000 units PO DAILY [facility] Last Admin: 10/05/17 10:14 Dose: 1,000 units Morphine Sulfate 8 mg/Epinephrine HCl 0.3 mg/Cefuroxime Sodium 750 mg/Ketorolac Tromethamine 30 mg/Sodium Chloride 27.9 ml 0 mg .XX ONETIME ONE Stop: 10/04/17 10:01 Last Admin: 10/04/17 12:05 Dose: 788.3 mg Cyclobenzaprine HCl (Flexeril) 10 mg PO TID PRN PRN Reason: Spasms Last Admin: 10/05/17 07:41 Dose: 10 mg Diazepam (Valium) 2 mg PO Q2H PRN PRN Reason: Anxiety Diphenhydramine HCl (Benadryl) 25 mg IVPUSH Q6H PRN PRN Reason: Pruritis Stop: 10/04/17 18:00 Docusate Sodium (Colace) 100 mg PO BID [facility] Last Admin: 10/05/17 10:14 Dose: 100 mg Docusate Sodium (Colace) 100 mg PO BID PRN PRN Reason: constiption Ephedrine Sulfate (Ephedrine In Ns) Confirm Administered Dose 25 mg .ROUTE .STK- MED ONE Stop: 10/04/17 11:53 Famotidine (Pepcid) 20 mg PO Q12H [facility] Famotidine (Pepcid) 20 mg PO DAILY [facility] Last Admin: 10/05/17 10:14 Dose: 20 mg Fentanyl (Sublimaze) Confirm Administered Dose 100 mcg .ROUTE .STK-MED ONE Stop: 10/04/17 09:44 Gabapentin (Neurontin) 300 mg PO TID [facility] Last Admin: 10/05/17 14:17 Dose: 300 mg Hydralazine HCl (Apresoline) 10 mg IVPUSH Q4H PRN PRN Reason: Hypertension Lactated Ringer's (Ringers, Lactated) 1,000 mls @ 125 mls/hr IV ASDIRECTED [facility] Last Admin: 10/04/17 09:05 Dose: 125 mls/hr Cefazolin Sodium/Dextrose 2 gm (/ Premix) 50 mls @ 100 mls/hr IV Q8H [facility] Stop: 10/05/17 11:59 Last Admin: 10/05/17 10:35 Dose: 100 mls/hr Lidocaine HCl (Xylocaine-Mpf 1%) Confirm Administered Dose 4 mls @ as directed .ROUTE .STK-MED ONE Stop: 10/04/17 11:27 Iodine (Iodine 2% Mild Tincture) Confirm Administered Dose 30 ml .ROUTE .STK- MED ONE Stop: 10/04/17 09:11 Last Admin: 10/04/17 11:57 Dose: 18 ml Ketorolac Tromethamine (Toradol) 15 mg IVPUSH Q6H PRN PRN Reason: Pain Last Admin: 10/04/17 17:38 Dose: 15 mg Lidocaine/Sodium Bicarbonate (Buffered Lidocaine 1% In Ns 8.4%) 0.25 ml IDERM ONETIME PRN PRN Reason: Prior to IV Start Magnesium Hydroxide (Milk Of Magnesia) 30 ml PO BID PRN PRN Reason: Constipation Meperidine HCl (Demerol) 12.5 mg IVPUSH ONETIME PRN PRN Reason: Shivering Stop: 10/04/17 18:00 Metoclopramide HCl (Reglan) 5 mg IVPUSH Q6H PRN PRN Reason: Nausea/Vomiting Metoprolol Tartrate (Lopressor) 5 mg IVPUSH Q4H PRN PRN Reason: Tachycardia Miscellaneous Information (Remove Patch) 1 ea TRDERM Q72H PRN PRN Reason: WHEN PATCH PLACED Morphine Sulfate (Morphine) 2 mg IVPUSH Q2H PRN PRN Reason: Breakthrough Pain Multivitamins (Thera) 1 each PO DAILY [facility] Last Admin: 10/05/17 10:14 Dose: 1 each Naloxone HCl (Narcan) 0.1 mg IVPUSH Q5M PRN PRN Reason: Oversedation Non-Formulary Medication (Gluc 2kcl/Chondr/Everett Hy/Hy Ac [Glucosamine & Chondroitin Cap]) 2 tab PO DAILY [facility] Ondansetron HCl (Zofran) 4 mg IVPUSH Q6H PRN PRN Reason: Nausea/Vomiting Last Admin: 10/04/17 19:16 Dose: 4 mg Ondansetron HCl (Zofran) Confirm Administered Dose 4 mg .ROUTE .STK-MED ONE Stop: 10/04/17 11:27 Ondansetron HCl (Zofran) 4 mg IVPUSH ONETIME PRN PRN Reason: Nausea/Vomiting Stop: 10/04/17 18:00 Oxycodone HCl (Oxycontin) 10 mg PO ONETIME [facility] Stop: 10/04/17 12:00 Last Admin: 10/04/17 09:55 Dose: 10 mg Oxycodone/Acetaminophen (Percocet 325-5 Mg) 1 - 2 tab PO Q4H PRN PRN Reason: Pain Last Admin: 10/05/17 12:31 Dose: 2 tab Pantoprazole Sodium (Protonix) 40 mg PO DAILY [facility] Last Admin: 10/05/17 10:14 Dose: 40 mg Pregabalin (Lyrica) 50 mg PO ONETIME [facility] Stop: 10/04/17 11:00 Last Admin: 10/04/17 09:56 Dose: 50 mg Propofol (Diprivan 20 Ml) Confirm Administered Dose 400 mg .ROUTE .STK-MED ONE Stop: 10/04/17 09:44 Propofol (Diprivan 20 Ml) Confirm Administered Dose 200 mg .ROUTE .STK-MED ONE Stop: 10/04/17 12:03 Scopolamine (Transderm-Scop) 1.5 mg TRDERM Q72H PRN PRN Reason: Nausea Last Admin: 10/04/17 21:14 Dose: 1.5 mg Senna (Senna) 8.6 mg PO BID PRN PRN Reason: Constipation Sertraline HCl (Zoloft) 100 mg PO DAILY [facility] Last Admin: 10/05/17 10:14 Dose: 100 mg Simvastatin (Zocor) 10 mg PO BEDTIME [facility] Last Admin: 10/04/17 21:14 Dose: 10 mg Sodium Chloride (Saline Flush) 10 ml FLUSH ASDIRECTED PRN PRN Reason: Keep Vein Open Tranexamic Acid (Cyklokapron) Confirm Administered Dose 1,000 mg .ROUTE .STK- MED ONE Stop: 10/04/17 09:11 Last Admin: 10/04/17 12:07 Dose: 1,000 mg Triamterene/HCTZ (Dyazide 25-37.5 Mg) 1 each PO DAILY [facility] Last Admin: 10/05/17 10:13 Dose: 1 each Vancomycin HCl (Vancomycin) Confirm Administered Dose 1 gm .ROUTE .[facility]-MED ONE Stop: 10/04/17 09:11 Last Admin: 10/04/17 12:06 Dose: 1 gm Zolpidem Tartrate (Ambien) 5 mg PO BEDTIME PRN PRN Reason: Insomnia
--- NOTE | 2017-10-08 10:56 | OR ---
DATE OF OPERATION: 10/04/2017 SURGEON: Gordy Cloud MD OPERATION PERFORMED: Right total hip arthroplasty. PREOPERATIVE DIAGNOSIS: Right hip osteoarthrosis. POSTOPERATIVE DIAGNOSIS: Right hip osteoarthrosis. ANESTHESIA: Local MAC with spinal. ANESTHESIA PROVIDER: Arron Perez. ASSISTANTS: 1. Nell Martinez PA-C. 2. Brooklyn Earl LPN. ESTIMATED BLOOD LOSS: 300 mL. COMPLICATIONS: None. CONDITION: Stable. IMPLANTS: 1. [place] size 52 mm titanium multi-hole cup. 2. [place] acetabular screw. 3. [place] MDM components 38/22.2 components. 4. [place] size 4 Accolade II stem. DESCRIPTION OF PROCEDURE: The patient was identified in the preop holding area where proper site was marked and identified by the surgeon. The patient was taken back to the operating theater. After adequate anesthesia, the patient was placed in a left lateral decubitus position. Axillary roll was placed. All pegs were well padded. The patient's gluteal fold was parallel to the floor. Right hip was then sterilely prepped and draped in the usual sterile fashion. OR time-out was performed. The patient received 2 g of IV Ancef. Standard posterior incision was done centered over the greater trochanter. This was taken down to the IT band and gluteal fascia, which was incised along the incisional length. Charnley retractor was then placed. Short external rotators were identified, takedown of the short external rotators was done down to the level of the lesser trochanter. Hip was then dislocated. Neck cut was then completed. Anterior and posterior acetabular retractors were then placed. Starting with a 44 reamer, I was able to ream up to a 52. During this happened, part of the posterior wall did fragment off, but it was noted to have still good fixation. At this time, a 52 mm Titanium acetabular cup was impacted into place. 1 screw was placed in the posterior-superior position and was found to have adequate purchase, and the cup was found to be solid. At this time, the MDM liner was impacted into place. Attention was turned to the femur. A box chisel was used out laterally. Starter awl was placed down the canal. Starting with 0 broach, I was able to broach up to a size 4 which was found to be rotationally and vertically stable. Trial implants were then placed, and the patient was noted to have stable hip throughout range of motion, and adequate temple of leg lengths with a +0 neck. At this time, the MDM components were opened and constructed on the back table. Size 4 Accolade II stem was impacted into place, and a 38/22.2 mm MDM components were then impacted into place. The patient's hip was reduced. One #5 Ethibond suture was used for closure of the short external rotators and capsule. 1 L of dilute Betadine solution was used to irrigate through the hip as well as 3 L of pulse lavage irrigation with Ancef. Topical tranexamic acid as well as vancomycin powder were placed. A #2 barbed suture was used for closure of the IT band and gluteal fascia, 2-0 Vicryl was used subcutaneously, and Prineo was used for the skin. The patient tolerated the procedure well, sent to PACU in stable condition. BAL /[id number]
== END 2017-10-05 15:30 | disposition home or self-care (01) | DRG 470 ==
LOC: JD.MS 07:06 → UNDOADMOB 08:25 → OBSVTOIN 08:25 → JD.MS 08:25 → INTOOBSV 08:25 → UNDODISIN 10-05 15:30
PROVIDERS: ADMIT Orthopaedic Surgery; ATTEND Orthopaedic Surgery
PROC: 0SR90JZ Replacement of Right Hip Joint with Synthetic Substitute, Open Approach (ICD-10-PCS; principal; 2017-10-04)
DX: M16.0 Bilateral primary osteoarthritis of hip (principal); I10 Essential (primary) hypertension; E78.5 Hyperlipidemia, unspecified; F32.9 Major depressive disorder, single episode, unspecified; G47.00 Insomnia, unspecified; K21.9 Gastro-esophageal reflux disease without esophagitis; K59.09 Other constipation; M85.80 Other specified disorders of bone density and structure, unspecified site; G89.29 Other chronic pain; M54.9 Dorsalgia, unspecified; Z88.7 Allergy status to serum and vaccine; Z79.899 Other long term (current) drug therapy; Z79.82 Long term (current) use of aspirin; Z98.1 Arthrodesis status
CPT/HCPCS: 01214; 36415; 73501-26-RT; 73501-RT; 80053; 85027; 86850; 86900; 86901; 87641; 97110-GP; 97116-GP; 97161-GP; 97165-GO; 97535-GO; A9270-GY; C1713; C1776; J0171; J0690; J0697; J1885; J2001; J2270; J2405; J2704; J3010; J3370; J3490; J7050; J7120

== ENCOUNTER 2017-12-13 06:42 | Inpatient (IN) | payer MEDICARE, BC ==
[~2017-12-13 06:42] MED LIST changes: +Acetaminophen 325 MG Tab PO SCH; -Bisacodyl 5 MG Tab PO PRN; -Ketorolac 15 MG/ML SDV IVPUSH PRN; -Magnesium Hydroxide 400 MG/5 ML Susp 30 ML Cup PO PRN; -Morphine 2 MG/ML Syringe IVPUSH PRN; -Naloxone 0.4 MG/ML SDV IVPUSH PRN; -Ondansetron 4 MG/2 ML SDV IVPUSH PRN; +Pregabalin 25 MG Cap PO SCH; -Sennosides 8.6 MG Tab PO PRN; +oxyCODONE ER 10 MG TAB.ER PO SCH
[2017-12-13] MEDS ORDERED: Lactated Ringers 1,000 ML ONE ×2 (06:55→10:29)
[2017-12-13] MEDS ORDERED: ceFAZolin 1 GM Vial ONE ×2 (06:55→07:41)
[2017-12-13] MEDS ORDERED: Propofol 200 MG/20 ML SDV ONE ×2 (06:55→09:40)
[2017-12-13] MEDS ORDERED: fentaNYL 100 MCG/2 ML SDV ONE (06:55)
[2017-12-13] MEDS ORDERED: Midazolam 1 MG/ML 2 ML SDV ONE (06:56)
[2017-12-13] MEDS ORDERED: Morphine PF 10 MG/10 ML SDV ONE (06:59)
--- NOTE | 2017-12-13 07:28 | PCM.PREANE ---
Preanesthetic Assessment - Anesthesia/Transfusion/Family Hx Anesthesia History: Prior Anesthesia Reaction Other Type of Anesthesia Reaction Comment: hard time waking up Transfusion History: No Prior Transfusion(s) - Review of Systems General: No Symptoms Pulmonary: No Symptoms Cardiovascular: Other (HTN, EKG NSR with borderline LVH) Gastrointestinal: Other (GERD) Neurological: Other (LBP) Other: Reports: Depression - Physical Assessment NPO Status Date: 12/12/17 NPO Status Time: 22:00 Pulse: 72 O2 Sat by Pulse Oximetry: 96 Respiratory Rate: 16 Blood Pressure: 149/68 Weight: 99.337 kg ASA Class: 2 Mental Status: Alert & Oriented x3 Airway Class: Mallampati = 2 Dentition: Reports: Normal Dentition Thyro-Mental Finger Breadths: 3 Mouth Opening Finger Breadths: 3 ROM/Head Extension: Full Lungs: Clear to Auscultation, Normal Respiratory Effort Cardiovascular: Regular Rate, Regular Rhythm - Lab Values: Laboratory Last Values MRSA (PCR) Negative 12/07/17 11:08 - Allergies Allergies/Adverse Reactions: Allergies Allergy/AdvReac Type Severity Reaction Status Date / Time oxycodone [From Percocet] Allergy Cannot Verified 12/10/17 14:11 Remember tetanus toxoid, adsorbed Allergy ARM Verified 12/10/17 14:11 SWELLING, FEVER - Blood Blood Available: No Product(s) Available: None - Anesthesia Plan Pre-Op Medication Ordered: None - Acknowledgements Anesthesia Type Planned: Spinal Pt an Appropriate Candidate for the Planned Anesthesia: Yes Alternatives and Risks of Anesthesia Discussed w Pt/Guardian: Yes Pt/Guardian Understands and Agrees with Anesthesia Plan: Yes PreAnesthesia Questionnaire HEENT History: Reports: None Cardiovascular History: Reports: High Cholesterol, Hypertension Respiratory History: Reports: None Gastrointestinal History: Reports: Chronic Constipation, GERD Other Gastrointestinal History: BMs are sometimes loose and then sometimes she is constipated. Genitourinary History: Reports: Other (See Below) Other Genitourinary History: frequency MANAGER IN TRAINING History: Reports: None Musculoskeletal History: Reports: Back Pain, Chronic, Osteoarthritis, Other ( See Below) Other Musculoskeletal History: lumbar spasm, hip pain, right knee pain Neurological History: Reports: Other (See Below) Other Neuro History: back surgery, L4L5 Psychiatric History: Reports: Depression, Other (See Below) Other Psychiatric History: insomnia Endocrine/Metabolic History: Reports: Osteopenia Hematologic History: Reports: None Immunologic History: Reports: None Oncologic (Cancer) History: Reports: None Dermatologic History: Reports: Other (See Below) Other Dermatologic History: onchomycosis, dermatits, actinic keratosis, seborrheic keratoses - Infectious Disease History Infectious Disease History: Reports: Chicken Pox, Measles, Mumps - Past Surgical History Head Surgeries/Procedures: Reports: None HEENT Surgical History: Reports: Cataract Surgery, Tonsillectomy Cardiovascular Surgical History: Reports: None Respiratory Surgical History: Reports: None GI Surgical History: Reports: Appendectomy, Colonoscopy, EGD Female Surgical History: Reports: D&C Male Surgical History: Reports: None Endocrine Surgical History: Reports: None Neurological Surgical History: Reports: Spinal Fusion Other Neurological Surgeries/Procedures: L4L5 fusion Musculoskeletal Surgical History: Reports: Hip Replacement, Other (See Below) Other Musculoskeletal Surgeries/Procedures:: back surgery Oncologic Surgical History: Reports: None - SUBSTANCE USE Smoking Status *Q: Never Smoker Second Hand Smoke Exposure: No Recreational Drug Use History: No - HOME MEDS Home Medications: Home Meds Cholecalciferol (Vitamin D3) [Vitamin D3] 1,000 unit PO DAILY 10/01/17 [History] Gabapentin [Neurontin] 300 mg PO TID 10/01/17 [History] Gluc 2KCl/Chondr/Everett Hy/Hy Ac [Glucosamine & Chondroitin Cap] 2 tab PO DAILY [History] Multivitamin [Poly-Vitamin] 1 tab PO DAILY 10/01/17 [History] Omeprazole 40 mg PO DAILY 10/01/17 [History] Pravastatin Sodium 20 mg PO BEDTIME 10/01/17 [History] Sertraline [Zoloft] 100 mg PO DAILY 10/01/17 [History] Triamterene/Hydrochlorothiazid [Triamterene-HCTZ 37.5-25 MG] 1 tab PO DAILY 12/11 [History] Zolpidem Tartrate [Ambien] 5 mg PO BEDTIME PRN 10/01/17 [History] traMADol HCl [Tramadol HCl] 1 - 2 tab PO Q6H PRN 10/01/17 [History] Acetaminophen [Pain Reliever] 500 mg PO Q6H PRN #0 10/04/17 [Rx] Aspirin [Ecotrin] 325 mg PO BID #84 tab.ec 10/04/17 [Rx] Docusate Sodium [Colace] 100 mg PO BID PRN 12/10/17 [History] - CURRENT (IN HOUSE) MEDS Current Meds: Current Medications Acetaminophen (Tylenol) 975 mg PO ONETIME [facility] Stop: 12/13/17 12:00 Hydrocodone Bitart/Acetaminophen ([place] 325-5 Mg) 1 - 2 tab PO Q4H PRN PRN Reason: Pain Aspirin (Ecotrin) 325 mg PO BID [facility] Bisacodyl (Dulcolax) 5 mg PO DAILY PRN PRN Reason: Constipation Famotidine (Pepcid) 20 mg PO Q12H [facility] Lactated Ringer's (Ringers, Lactated) 1,000 mls @ 125 mls/hr IV ASDIRECTED [facility] Lidocaine/Sodium Bicarbonate (Buffered Lidocaine 1% In Ns 8.4%) 0.25 ml IDERM ONETIME PRN PRN Reason: Prior to IV Start Stop: 12/13/17 18:00 Magnesium Hydroxide (Milk Of Magnesia) 30 ml PO BID PRN PRN Reason: Constipation Morphine Sulfate (Morphine) 2 mg IVPUSH Q2H PRN PRN Reason: Breakthrough Pain Naloxone HCl (Narcan) 0.1 mg IVPUSH Q5M PRN PRN Reason: Oversedation Ondansetron HCl (Zofran) 4 mg IVPUSH Q6H PRN PRN Reason: Nausea/Vomiting Oxycodone HCl (Oxycontin) 10 mg PO ONETIME [facility] Stop: 12/13/17 12:00 Pregabalin (Lyrica) 50 mg PO ONETIME [facility] Stop: 12/13/17 12:00 Senna (Senna) 8.6 mg PO BID PRN PRN Reason: Constipation Sodium Chloride (Saline Flush) 10 ml FLUSH ASDIRECTED PRN PRN Reason: Keep Vein Open Stop: 12/13/17 18:00 Discontinued Medications Cefazolin Sodium (Ancef) Confirm Administered Dose 2 gm .ROUTE .STK-MED ONE Stop: 12/13/17 06:56 Fentanyl (Sublimaze) Confirm Administered Dose 100 mcg .ROUTE .STK-MED ONE Stop: 12/13/17 06:56 Lactated Ringer's (Ringers, Lactated) Confirm Administered Dose 1,000 mls @ as directed .ROUTE .STK-MED ONE Stop: 12/13/17 06:56 Midazolam HCl (Versed 1 Mg/Ml) Confirm Administered Dose 2 mg .ROUTE .STK-MED ONE Stop: 12/13/17 06:57 Morphine Sulfate (Duramorph Pf) Confirm Administered Dose 10 mg .ROUTE .STK-MED ONE Stop: 12/13/17 07:00 Propofol (Diprivan 20 Ml) Confirm Administered Dose 600 mg .ROUTE .STK-MED ONE Stop: 12/13/17 06:56
[2017-12-13] MEDS ORDERED: Bupivacaine 0.25% 30 ML SDV ONE (07:41)
[2017-12-13] MEDS ORDERED: Iodine/Sodium Iodide 2% Tincture 30 ML Bottle ONE (07:41)
[2017-12-13] MEDS ORDERED: Vancomycin 1 GM SDV ONE (07:41)
[2017-12-13] MEDS ORDERED: Ondansetron 4 MG/2 ML SDV ONE (09:04)
[2017-12-13] MEDS ORDERED: Phenylephrine/Normal Saline 100 MCG/ML 10 ML Syringe ONE (09:09)
[2017-12-13] MEDS: Morphine 8 MG, EPINEPHrine 0.3 MG, Cefuroxime 750 MG, Ketorolac 30 MG, Sodium Chloride ... ONE ×10 (10:05→14:10)
[2017-12-13] MEDS ORDERED: fentaNYL 100 MCG/2 ML SDV IVPUSH PRN (10:46)
[2017-12-13] MEDS ORDERED: Ondansetron 4 MG/2 ML SDV IVPUSH PRN (10:46)
[2017-12-13] MEDS ORDERED: diphenhydrAMINE 50 MG/ML SDV IVPUSH PRN (10:46)
--- NOTE | 2017-12-13 10:49 | PCM.POSTAN ---
POST ANESTHESIA ASSESSMENT - MENTAL STATUS Mental Status: Alert, Oriented - VITAL SIGNS Pulse Rate: 66 SaO2: 99 Resp Rate: 16 Blood Pressure: 145/66 Temperature: 36.6 C - RESPIRATORY Respiratory Status: Respiratory Rate WNL, Airway Patent, O2 Saturation Stable, Supplemental Oxygen - CARDIOVASCULAR CV Status: Pulse Rate WNL, Blood Pressure Stable - GASTROINTESTINAL GI Status: No Symptoms - PAIN Pain Score: 0 - POST OP HYDRATION Hydration Status: Adequate & Stable
[2017-12-13] MEDS ORDERED: Cyclobenzaprine 10 MG Tab PO PRN (11:00)
[2017-12-13] MEDS ORDERED: Bisacodyl 5 MG Tab PO PRN (11:00)
[2017-12-13] MEDS ORDERED: Sennosides 8.6 MG Tab PO PRN (11:00)
[2017-12-13] MEDS ORDERED: Naloxone 0.4 MG/ML SDV IVPUSH PRN (11:00)
[2017-12-13] MEDS ORDERED: Morphine 2 MG/ML Syringe IVPUSH PRN (11:00)
[2017-12-13] MEDS ORDERED: Magnesium Hydroxide 400 MG/5 ML Susp 30 ML Cup PO PRN (11:00)
[2017-12-13] MEDS ORDERED: Zolpidem 5 MG Tab PO PRN (12:42)
[2017-12-13] MEDS: Ondansetron 4 MG/2 ML SDV IVPUSH PRN (14:40)
[2017-12-13] MEDS ORDERED: Scopolamine 1.5 MG Transdermal Patch TOP ONE (14:44)
[2017-12-13] MEDS ORDERED: hydrALAZINE 20 MG/ML SDV IVPUSH PRN (16:09)
[2017-12-13] MEDS: ceFAZolin 2 GM in Premix Bag 1 BAG IV SCH (16:25)
[2017-12-13] MEDS ORDERED: Promethazine 12.5 MG in Sodium Chloride 0.9% 50 ML IV ONE (16:58)
[2017-12-13] MEDS ORDERED: Ketorolac 15 MG/ML SDV IVPUSH ONE (17:23)
[2017-12-13] MEDS ORDERED: hydrALAZINE 20 MG/ML SDV IVPUSH ONE (17:37)
--- NOTE | 2017-12-13 20:50 | PCM.SN ---
- Free Text/Narrative Note: In to see Dora. She is doing well, currently complaining of mild headache, backache, nausea, vomiting. No other complaints at this time. Nursing is concerned about her BP- it went up to 168/107 and continues to rise- most likely d/t pain and h/o HTN. Pt states she did take her HTN medication today. No F/C, diarrhea, SOB, CP, Urinary issues, numbness or tingling. No other concerns from nursing. Will give PRN Hydralazine and one time Toradol. Update: Pt BP has greatly improved after Hydralazine 20mg IV. Pain is controlled. No other complaints at this time.
[2017-12-13] MEDS ORDERED: Simvastatin 10 MG Tab PO SCH (21:00)
[2017-12-13] MEDS ORDERED: Famotidine 20 MG Tab PO SCH (21:00)
[2017-12-13] MEDS: Gabapentin 300 MG Cap PO SCH (22:13)
[2017-12-13] MEDS: Acetaminophen/HYDROcodone 325-5 MG Tab PO PRN (22:13)
[2017-12-14] MEDS: ceFAZolin 2 GM in Premix Bag 1 BAG IV SCH ×2 (00:45→09:01)
[2017-12-14] MEDS: Acetaminophen/HYDROcodone 325-5 MG Tab PO PRN ×4 (01:25→13:29)
--- NOTE | 2017-12-14 06:15 | PCM.CONSN ---
- General Info Date of Service: 12/14/17 Admission Dx/Problem (Free Text): Osteoarthritis of hip Subjective Update: In to see Dora. She is just finishing up with OT. She has been doing quite well. She did have some hypertensive readings last night which have since resolved. She reports some mild dizziness and nausea last night which has since resolved. Functional Status: Reports: Pain Controlled, Tolerating Diet, Ambulating, Urinating, Incentive Spirometry. Denies: New Symptoms - Review of Systems General: Reports: No Symptoms HEENT: Reports: No Symptoms Pulmonary: Reports: No Symptoms. Denies: Shortness of Breath, Cough, Sputum Cardiovascular: Reports: No Symptoms. Denies: Chest Pain, Palpitations Gastrointestinal: Reports: No Symptoms. Denies: Abdominal Pain, Constipation, Diarrhea, Nausea, Vomiting Genitourinary: Reports: No Symptoms Musculoskeletal: Reports: Leg Pain Skin: Reports: No Symptoms Neurological: Reports: No Symptoms Psychiatric: Reports: No Symptoms - Patient Data Vitals - Most Recent: Last Vital Signs Temp 98.6 F 12/14/17 05:32 Pulse 83 12/14/17 05:32 Resp 16 12/14/17 06:00 BP 97/80 12/14/17 05:32 Pulse Ox 94 L 12/14/17 05:32 Weight - Most Recent: 210 lb 4.8 oz I&O - Last 24 Hours: Intake & Output 12/13/17 12/13/17 12/14/17 14:59 22:59 06:59 Intake Total 958 070 3075 Output Total 225 250 750 Balance -324 15 4750 Lab Results Last 24 Hours: Laboratory Results - last 24 hr 12/13/17 Range/Units 07:25 Blood Type A NEGATIVE Gel Antibody Screen Negative Med Orders - Current: Current Medications Hydrocodone Bitart/Acetaminophen ([place] 325-5 Mg) 1 - 2 tab PO Q4H PRN PRN Reason: Pain Last Admin: 12/14/17 05:38 Dose: 2 tab Aspirin (Ecotrin) 325 mg PO BID RAUL Bisacodyl (Dulcolax) 5 mg PO DAILY PRN PRN Reason: Constipation Cholecalciferol (Vitamin D3) 1,000 units PO DAILY [facility] Cyclobenzaprine HCl (Flexeril) 10 mg PO TID PRN PRN Reason: Spasms Gabapentin (Neurontin) 300 mg PO TID RAUL Last Admin: 12/13/17 22:13 Dose: 300 mg Hydralazine HCl (Apresoline) 10 mg IVPUSH Q4H PRN PRN Reason: Hypertension Last Admin: 12/13/17 16:19 Dose: 10 mg Cefazolin Sodium/Dextrose 2 gm (/ Premix) 50 mls @ 100 mls/hr IV Q8H [facility] Stop: 12/14/17 09:29 Last Admin: 12/14/17 00:45 Dose: 100 mls/hr Magnesium Hydroxide (Milk Of Magnesia) 30 ml PO BID PRN PRN Reason: Constipation Morphine Sulfate (Morphine) 2 mg IVPUSH Q2H PRN PRN Reason: Breakthrough Pain Multivitamins (Thera) 1 each PO DAILY [facility] Naloxone HCl (Narcan) 0.1 mg IVPUSH Q5M PRN PRN Reason: Oversedation Ondansetron HCl (Zofran) 4 mg IVPUSH Q6H PRN PRN Reason: Nausea/Vomiting Last Admin: 12/13/17 14:40 Dose: 4 mg Pantoprazole Sodium (Protonix) 40 mg PO DAILY [facility] Senna (Senna) 8.6 mg PO BID PRN PRN Reason: Constipation Sertraline HCl (Zoloft) 100 mg PO DAILY [facility] Simvastatin (Zocor) 10 mg PO BEDTIME [facility] Last Admin: 12/13/17 22:13 Dose: 10 mg Triamterene/HCTZ (Dyazide 25-37.5 Mg) 1 each PO DAILY [facility] Zolpidem Tartrate (Ambien) 5 mg PO BEDTIME PRN PRN Reason: Insomnia Discontinued Medications Acetaminophen (Tylenol) 975 mg PO ONETIME [facility] Stop: 12/13/17 12:00 Last Admin: 12/13/17 08:00 Dose: 975 mg Bupivacaine HCl (Marcaine 0.25%) Confirm Administered Dose 30 ml .ROUTE .STK- MED ONE Stop: 12/13/17 07:42 Last Admin: 12/13/17 10:06 Dose: 30 ml Cefazolin Sodium (Ancef) Confirm Administered Dose 2 gm .ROUTE .STK-MED ONE Stop: 12/13/17 06:56 Last Admin: 12/13/17 10:02 Dose: 2 gm Cefazolin Sodium (Ancef) Confirm Administered Dose 2 gm .ROUTE .STK-MED ONE Stop: 12/13/17 07:42 Morphine Sulfate 8 mg/Epinephrine HCl 0.3 mg/Cefuroxime Sodium 750 mg/Ketorolac Tromethamine 30 mg/Sodium Chloride 27.9 ml 0 mg .XX ONETIME ONE Stop: 12/13/17 09:01 Last Admin: 12/13/17 14:10 Dose: Not Given Diphenhydramine HCl (Benadryl) 25 mg IVPUSH Q6H PRN PRN Reason: itching Stop: 12/13/17 13:00 Famotidine (Pepcid) 20 mg PO Q12H [facility] Fentanyl (Sublimaze) Confirm Administered Dose 100 mcg .ROUTE .STK-MED ONE Stop: 12/13/17 06:56 Fentanyl (Sublimaze) 50 mcg IVPUSH Q5M PRN PRN Reason: pain Stop: 12/13/17 13:00 Hydralazine HCl (Apresoline) 10 mg IVPUSH ONETIME ONE Stop: 12/13/17 17:38 Last Admin: 12/13/17 17:43 Dose: 10 mg Lactated Ringer's (Ringers, Lactated) 1,000 mls @ 125 mls/hr IV ASDIRECTED RAUL Last Admin: 12/13/17 07:20 Dose: 125 mls/hr Lactated Ringer's (Ringers, Lactated) Confirm Administered Dose 1,000 mls @ as directed .ROUTE .STK-MED ONE Stop: 12/13/17 06:56 Lactated Ringer's (Ringers, Lactated) Confirm Administered Dose 1,000 mls @ as directed .ROUTE .STK-MED ONE Stop: 12/13/17 10:30 Promethazine HCl 12.5 mg/ (Sodium Chloride) 50.5 mls @ 100 mls/hr IV ONETIME ONE Stop: 12/13/17 17:28 Last Admin: 12/13/17 17:24 Dose: 100 mls/hr Iodine (Iodine 2% Mild Tincture) Confirm Administered Dose 30 ml .ROUTE .STK- MED ONE Stop: 12/13/17 07:42 Last Admin: 12/13/17 09:58 Dose: 18 ml Ketorolac Tromethamine (Toradol) 15 mg IVPUSH ONETIME ONE Stop: 12/13/17 17:24 Last Admin: 12/13/17 17:30 Dose: 15 mg Lidocaine/Sodium Bicarbonate (Buffered Lidocaine 1% In Ns 8.4%) 0.25 ml IDERM ONETIME PRN PRN Reason: Prior to IV Start Stop: 12/13/17 18:00 Last Admin: 12/13/17 07:19 Dose: 0.25 ml Midazolam HCl (Versed 1 Mg/Ml) Confirm Administered Dose 2 mg .ROUTE .STK-MED ONE Stop: 12/13/17 06:57 Morphine Sulfate (Duramorph Pf) Confirm Administered Dose 10 mg .ROUTE .STK-MED ONE Stop: 12/13/17 07:00 Non-Formulary Medication (Gluc 2kcl/Chondr/Everett Hy/Hy Ac [Glucosamine & Chondroitin Cap]) 2 tab PO DAILY [facility] Ondansetron HCl (Zofran) Confirm Administered Dose 4 mg .ROUTE .STK-MED ONE Stop: 12/13/17 09:05 Ondansetron HCl (Zofran) 4 mg IVPUSH ONETIME PRN PRN Reason: Nausea/Vomiting Stop: 12/13/17 13:00 Oxycodone HCl (Oxycontin) 10 mg PO ONETIME [facility] Stop: 12/13/17 12:00 Last Admin: 12/13/17 08:00 Dose: 10 mg Phenylephrine HCl (Phenylephrine In Ns 100 Mcg/Ml) Confirm Administered Dose 1 mg .ROUTE .STK-MED ONE Stop: 12/13/17 09:10 Pregabalin (Lyrica) 50 mg PO ONETIME [facility] Stop: 12/13/17 12:00 Last Admin: 12/13/17 08:00 Dose: 50 mg Propofol (Diprivan 20 Ml) Confirm Administered Dose 600 mg .ROUTE .STK-MED ONE Stop: 12/13/17 06:56 Propofol (Diprivan 20 Ml) Confirm Administered Dose 200 mg .ROUTE .STK-MED ONE Stop: 12/13/17 09:41 Scopolamine (Transderm-Scop) 1.5 mg TOP ONETIME ONE Stop: 12/13/17 14:45 Last Admin: 12/13/17 14:53 Dose: 1.5 mg Sodium Chloride (Saline Flush) 10 ml FLUSH ASDIRECTED PRN PRN Reason: Keep Vein Open Stop: 12/13/17 18:00 Tranexamic Acid (Cyklokapron) Confirm Administered Dose 1,000 mg .ROUTE .STK- MED ONE Stop: 12/13/17 07:42 Last Admin: 12/13/17 10:04 Dose: 1,000 mg Vancomycin HCl (Vancomycin) Confirm Administered Dose 1 gm .ROUTE .STK-MED ONE Stop: 12/13/17 07:42 Last Admin: 12/13/17 10:07 Dose: 1 gm - Exam Quality Assessment: DVT Prophylaxis. No: Supplemental Oxygen, Urine Catheter General: Alert, Oriented, Cooperative, No Acute Distress HEENT: Pupils Equal, Pupils Reactive, EOMI, Mucous Membr. Moist/[place] Neck: Supple, Trachea Midline, No JVD Lungs: Clear to Auscultation, Normal Respiratory Effort Cardiovascular: Regular Rate, Regular Rhythm GI/Abdominal Exam: Normal Bowel Sounds, Soft, Non-Tender, Pelvis Stable (Female) Exam: Deferred Back Exam: Normal Inspection, Full Range of Motion Extremities: No Pedal Edema, Normal Capillary Refill, Leg Pain, Limited Range of Motion, Other (Bandage in place on ) Peripheral Pulses: 2+: Radial (L), Radial (R), Dorsalis Pedis (L), Dorsalis Pedis (R) Skin: Warm, Dry, Intact Wound/Incisions: Dressing Dry and Intact, No Drainage Neurological: No New Focal Deficit Psy/Mental Status: Alert, Normal Affect, Normal Mood Consult PN Assessment/Plan POD#: 1 Procedures: Procedures BLOOD TYPING SEROLOGIC ABO (10/04/17) BLOOD TYPING SEROLOGIC RH(D) (10/04/17) COMPLETE CBC AUTOMATED (10/04/17) COMPREHEN METABOLIC PANEL (10/04/17) GAIT TRAINING THERAPY (10/04/17) MR-STAPH DNA AMP PROBE (10/04/17) OT EVAL LOW COMPLEX 30 MIN (10/04/17) PT EVAL LOW COMPLEX 20 MIN (10/04/17) RBC ANTIBODY SCREEN (10/04/17) ROUTINE VENIPUNCTURE (10/04/17) SELF CARE MNGMENT TRAINING (10/04/17) THERAPEUTIC EXERCISES (10/04/17) X-RAY EXAM HIP UNI 1 VIEW (10/04/17) (1) S/P total hip arthroplasty SNOMED Code(s): 624137793855, 262078189402 Code(s): Z96.649 - PRESENCE OF UNSPECIFIED ARTIFICIAL HIP JOINT Priority: High Current Visit: No Qualifiers: Laterality: right Qualified Code(s): Z96.641 - Presence of right artificial hip joint (2) Chronic back pain SNOMED Code(s): 452262767 Code(s): M54.9 - DORSALGIA, UNSPECIFIED; G89.29 - OTHER CHRONIC PAIN Priority: Medium Current Visit: No Qualifiers: Back pain location: back pain in unspecified location Back pain laterality : unspecified Qualified Code(s): M54.9 - Dorsalgia, unspecified; G89.29 - Other chronic pain (3) Chronic constipation SNOMED Code(s): 356781201 Code(s): K59.09 - OTHER CONSTIPATION Priority: Low Current Visit: No (4) GERD (gastroesophageal reflux disease) SNOMED Code(s): 804628139 Code(s): K21.9 - GASTRO-ESOPHAGEAL REFLUX DISEASE WITHOUT ESOPHAGITIS Priority: Medium Current Visit: No Qualifiers: Esophagitis presence: esophagitis presence not specified Qualified Code(s) : K21.9 - Gastro-esophageal reflux disease without esophagitis (5) HLD (hyperlipidemia) SNOMED Code(s): 73807605 Code(s): E78.5 - HYPERLIPIDEMIA, UNSPECIFIED Priority: Medium Current Visit: No Qualifiers: Hyperlipidemia type: unspecified Qualified Code(s): E78.5 - Hyperlipidemia , unspecified (6) HTN (hypertension) SNOMED Code(s): 11382072 Code(s): I10 - ESSENTIAL (PRIMARY) HYPERTENSION Priority: Medium Current Visit: No Qualifiers: Hypertension type: unspecified Qualified Code(s): I10 - Essential (primary ) hypertension (7) Insomnia SNOMED Code(s): 286114294 Code(s): G47.00 - INSOMNIA, UNSPECIFIED Priority: Low Current Visit: No Qualifiers: Insomnia type: unspecified Qualified Code(s): G47.00 - Insomnia, unspecified (8) Osteoarthritis SNOMED Code(s): 304300194 Code(s): M19.90 - UNSPECIFIED OSTEOARTHRITIS, UNSPECIFIED SITE Priority: High Current Visit: No Qualifiers: Osteoarthritis location: hip Osteoarthritis type: primary Laterality: right Qualified Code(s): M16.11 - Unilateral primary osteoarthritis, right hip (9) Osteopenia SNOMED Code(s): 273263724 Code(s): M85.80 - OTH DISRD OF BONE DENSITY AND STRUCTURE, UNSPECIFIED SITE Priority: Medium Current Visit: No Qualifiers: Osteopenia location: unspecified Qualified Code(s): M85.80 - Other specified disorders of bone density and structure, unspecified site (10) Other specified depressive episodes SNOMED Code(s): 92579067 Code(s): F32.89 - OTHER SPECIFIED DEPRESSIVE EPISODES Priority: Medium Current Visit: No Problem List Initiated/Reviewed/Updated: Yes Plan: I/P: Acute: S/P right total hip arthroplasty - post-operative day 1 -DVT prophylaxis and pain management per primary care team -PT/OT -IS/RT -Monitor oxygen saturation -Titrate oxygen as needed -Vital signs stable -Monitor labs - Hgb 9.7 - eGFR >60 Osteoarthritis of Right hip -Pain management per primary care team Resolved: Post-operative hypertension -PRN hydralazine -Pain medications Chronic: HTN GERD depression HLD chronic constipation chronic back pain osteoarthritis lumbar spasm right knee pain L4-L5 back surgery osteopenia Plan: CM for discharge planning GI prophylaxis Home medications as indicated Other orders as listed above Routine AM labs She is a full code. Her PCP is Dr. Geni Mcnamara Overall Dora is doing well from a hospitalist standpoint. She has been working with therapies. Her labs look good. Her vital signs are good - no longer hypertensive. She has urinated. She is clear for discharge pending primary team approval. Thank you for allowing us to participate in the care of this patient!!
--- NOTE | 2017-12-14 07:38 | PCM.SURGPN ---
- General Info Date of Service: 12/14/17 POD#: 1 Functional Status: Reports: Pain Controlled, Tolerating Diet, Ambulating, Urinating, Incentive Spirometry - Patient Data Vitals - Most Recent: Last Vital Signs Temp 98.6 F 12/14/17 05:32 Pulse 83 12/14/17 05:32 Resp 16 12/14/17 06:59 BP 97/80 12/14/17 05:32 Pulse Ox 94 L 12/14/17 05:32 Weight - Most Recent: 210 lb 4.8 oz I&O - Last 24 Hours: Intake & Output 12/13/17 12/14/17 12/14/17 22:59 06:59 14:59 Intake Total 300 1900 Output Total 250 750 Balance 50 1150 Lab Results Last 24 Hrs: Laboratory Results - last 24 hr 12/13/17 12/14/17 Range/Units 07:25 06:05 WBC 6.84 (3.98-10.04) K/mm3 RBC 3.55 L (3.98-5.22) M/mm3 Hgb 9.7 L (11.2-15.7) gm/L Hct 30.9 L (34.1-44.9) % MCV 87.0 (79.4-94.8) fl MCH 27.3 (25.6-32.2) pg MCHC 31.4 L (32.2-35.5) g/dl RDW Std Deviation 40.8 (36.4-46.3) fL Plt Count 218 (182-369) K/mm3 MPV 11.2 (9.4-12.3) fl Blood Type A NEGATIVE Gel Antibody Screen Negative Med Orders - Current: Current Medications Hydrocodone Bitart/Acetaminophen ([place] 325-5 Mg) 1 - 2 tab PO Q4H PRN PRN Reason: Pain Last Admin: 12/14/17 05:38 Dose: 2 tab Aspirin (Ecotrin) 325 mg PO BID [facility] Bisacodyl (Dulcolax) 5 mg PO DAILY PRN PRN Reason: Constipation Cholecalciferol (Vitamin D3) 1,000 units PO DAILY [facility] Cyclobenzaprine HCl (Flexeril) 10 mg PO TID PRN PRN Reason: Spasms Gabapentin (Neurontin) 300 mg PO TID RAUL Last Admin: 12/13/17 22:13 Dose: 300 mg Hydralazine HCl (Apresoline) 10 mg IVPUSH Q4H PRN PRN Reason: Hypertension Last Admin: 12/13/17 16:19 Dose: 10 mg Cefazolin Sodium/Dextrose 2 gm (/ Premix) 50 mls @ 100 mls/hr IV Q8H [facility] Stop: 12/14/17 09:29 Last Admin: 12/14/17 00:45 Dose: 100 mls/hr Magnesium Hydroxide (Milk Of Magnesia) 30 ml PO BID PRN PRN Reason: Constipation Morphine Sulfate (Morphine) 2 mg IVPUSH Q2H PRN PRN Reason: Breakthrough Pain Multivitamins (Thera) 1 each PO DAILY [facility] Naloxone HCl (Narcan) 0.1 mg IVPUSH Q5M PRN PRN Reason: Oversedation Ondansetron HCl (Zofran) 4 mg IVPUSH Q6H PRN PRN Reason: Nausea/Vomiting Last Admin: 12/13/17 14:40 Dose: 4 mg Pantoprazole Sodium (Protonix) 40 mg PO DAILY [facility] Senna (Senna) 8.6 mg PO BID PRN PRN Reason: Constipation Sertraline HCl (Zoloft) 100 mg PO DAILY [facility] Simvastatin (Zocor) 10 mg PO BEDTIME [facility] Last Admin: 12/13/17 22:13 Dose: 10 mg Triamterene/HCTZ (Dyazide 25-37.5 Mg) 1 each PO DAILY [facility] Zolpidem Tartrate (Ambien) 5 mg PO BEDTIME PRN PRN Reason: Insomnia Discontinued Medications Acetaminophen (Tylenol) 975 mg PO ONETIME [facility] Stop: 12/13/17 12:00 Last Admin: 12/13/17 08:00 Dose: 975 mg Bupivacaine HCl (Marcaine 0.25%) Confirm Administered Dose 30 ml .ROUTE .STK- MED ONE Stop: 12/13/17 07:42 Last Admin: 12/13/17 10:06 Dose: 30 ml Cefazolin Sodium (Ancef) Confirm Administered Dose 2 gm .ROUTE .STK-MED ONE Stop: 12/13/17 06:56 Last Admin: 12/13/17 10:02 Dose: 2 gm Cefazolin Sodium (Ancef) Confirm Administered Dose 2 gm .ROUTE .STK-MED ONE Stop: 12/13/17 07:42 Morphine Sulfate 8 mg/Epinephrine HCl 0.3 mg/Cefuroxime Sodium 750 mg/Ketorolac Tromethamine 30 mg/Sodium Chloride 27.9 ml 0 mg .XX ONETIME ONE Stop: 12/13/17 09:01 Last Admin: 12/13/17 14:10 Dose: Not Given Diphenhydramine HCl (Benadryl) 25 mg IVPUSH Q6H PRN PRN Reason: itching Stop: 12/13/17 13:00 Famotidine (Pepcid) 20 mg PO Q12H [facility] Fentanyl (Sublimaze) Confirm Administered Dose 100 mcg .ROUTE .STK-MED ONE Stop: 12/13/17 06:56 Fentanyl (Sublimaze) 50 mcg IVPUSH Q5M PRN PRN Reason: pain Stop: 12/13/17 13:00 Hydralazine HCl (Apresoline) 10 mg IVPUSH ONETIME ONE Stop: 12/13/17 17:38 Last Admin: 12/13/17 17:43 Dose: 10 mg Lactated Ringer's (Ringers, Lactated) 1,000 mls @ 125 mls/hr IV ASDIRECTED [facility] Last Admin: 12/13/17 07:20 Dose: 125 mls/hr Lactated Ringer's (Ringers, Lactated) Confirm Administered Dose 1,000 mls @ as directed .ROUTE .STK-MED ONE Stop: 12/13/17 06:56 Lactated Ringer's (Ringers, Lactated) Confirm Administered Dose 1,000 mls @ as directed .ROUTE .STK-MED ONE Stop: 12/13/17 10:30 Promethazine HCl 12.5 mg/ (Sodium Chloride) 50.5 mls @ 100 mls/hr IV ONETIME ONE Stop: 12/13/17 17:28 Last Admin: 12/13/17 17:24 Dose: 100 mls/hr Iodine (Iodine 2% Mild Tincture) Confirm Administered Dose 30 ml .ROUTE .STK- MED ONE Stop: 12/13/17 07:42 Last Admin: 12/13/17 09:58 Dose: 18 ml Ketorolac Tromethamine (Toradol) 15 mg IVPUSH ONETIME ONE Stop: 12/13/17 17:24 Last Admin: 12/13/17 17:30 Dose: 15 mg Lidocaine/Sodium Bicarbonate (Buffered Lidocaine 1% In Ns 8.4%) 0.25 ml IDERM ONETIME PRN PRN Reason: Prior to IV Start Stop: 12/13/17 18:00 Last Admin: 12/13/17 07:19 Dose: 0.25 ml Midazolam HCl (Versed 1 Mg/Ml) Confirm Administered Dose 2 mg .ROUTE .STK-MED ONE Stop: 12/13/17 06:57 Morphine Sulfate (Duramorph Pf) Confirm Administered Dose 10 mg .ROUTE .STK-MED ONE Stop: 12/13/17 07:00 Non-Formulary Medication (Gluc 2kcl/Chondr/Everett Hy/Hy Ac [Glucosamine & Chondroitin Cap]) 2 tab PO DAILY [facility] Ondansetron HCl (Zofran) Confirm Administered Dose 4 mg .ROUTE .STK-MED ONE Stop: 12/13/17 09:05 Ondansetron HCl (Zofran) 4 mg IVPUSH ONETIME PRN PRN Reason: Nausea/Vomiting Stop: 12/13/17 13:00 Oxycodone HCl (Oxycontin) 10 mg PO ONETIME [facility] Stop: 12/13/17 12:00 Last Admin: 12/13/17 08:00 Dose: 10 mg Phenylephrine HCl (Phenylephrine In Ns 100 Mcg/Ml) Confirm Administered Dose 1 mg .ROUTE .STK-MED ONE Stop: 12/13/17 09:10 Pregabalin (Lyrica) 50 mg PO ONETIME [facility] Stop: 12/13/17 12:00 Last Admin: 12/13/17 08:00 Dose: 50 mg Propofol (Diprivan 20 Ml) Confirm Administered Dose 600 mg .ROUTE .STK-MED ONE Stop: 12/13/17 06:56 Propofol (Diprivan 20 Ml) Confirm Administered Dose 200 mg .ROUTE .STK-MED ONE Stop: 12/13/17 09:41 Scopolamine (Transderm-Scop) 1.5 mg TOP ONETIME ONE Stop: 12/13/17 14:45 Last Admin: 12/13/17 14:53 Dose: 1.5 mg Sodium Chloride (Saline Flush) 10 ml FLUSH ASDIRECTED PRN PRN Reason: Keep Vein Open Stop: 12/13/17 18:00 Tranexamic Acid (Cyklokapron) Confirm Administered Dose 1,000 mg .ROUTE .STK- MED ONE Stop: 12/13/17 07:42 Last Admin: 12/13/17 10:04 Dose: 1,000 mg Vancomycin HCl (Vancomycin) Confirm Administered Dose 1 gm .ROUTE .STK-MED ONE Stop: 12/13/17 07:42 Last Admin: 12/13/17 10:07 Dose: 1 gm - Exam Wound/Incisions: Dressing Dry and Intact General: Alert, Cooperative, No Acute Distress Lungs: Normal Respiratory Effort Extremities: Other (NVS intact for LLE. Anette's negative. Left thigh soft.) - Problem List Review Problem List Initiated/Reviewed/Updated: Yes - My Orders Last 24 Hours: Active Orders 24 hr Category Date Time Status Patient Status [ADT] Routine ADT 12/13/17 06:47 Active Ambulate [RC] ,, Care 12/13/17 06:47 Active Cooling Warming Measures [RC] ASDIRECTED Care 12/13/17 10:46 Inactive May Shower [RC] DAILY Care 12/13/17 06:47 Active Notify Provider Consults [RC] DAILY Care 12/13/17 06:52 Active Notify Provider [RC] ASDIRECTED Care 12/13/17 10:46 Active Oxygen Therapy [RC] ASDIRECTED Care 12/13/17 10:46 Active Pulse Oximetry [RC] ASDIRECTED Care 12/13/17 10:46 Active RT Incentive Spirometry [RC] Q1HWA Care 12/13/17 06:46 Active Ready for Discharge [RC] PER UNIT ROUTINE Care 12/14/17 07:36 Ordered Up to Chair [RC] ,, Care 12/13/17 06:47 Active Vital Signs [RC] Q1HR Care 12/13/17 06:47 Active Consult to Physician [CONS] Routine Cons 12/13/17 06:47 Active OT Evaluation and Treatment [CONS] Routine Cons 12/13/17 06:46 Active PT Evaluation and Treatment [CONS] Routine Cons 12/13/17 06:46 Active Regular Diet [DIET] Diet 12/13/17 Lunch Active Hip Min 1V w Pelvis Lt [CR] Routine Exams 12/13/17 06:46 Taken COMPREHENSIVE METABOLIC PN,CMP [CHEM] AM Lab 12/14/17 06:05 Received Acetaminophen/HYDROcodone [Stanton 325-5 MG] Med 12/13/17 11:00 Active 1 - 2 tab PO Q4H PRN Aspirin [Ecotrin] Med 12/14/17 09:00 Active 325 mg PO BID Bisacodyl [Dulcolax] Med 12/13/17 11:00 Active 5 mg PO DAILY PRN Cholecalciferol (Vitamin D3) [Vitamin D3] Med 12/14/17 09:00 Active 1,000 units PO DAILY Cyclobenzaprine [Flexeril] Med 12/13/17 11:00 Active 10 mg PO TID PRN Gabapentin [Neurontin] Med 12/13/17 21:00 Active 300 mg PO TID HCTZ/Triamterene [Dyazide 25-37.5 MG] Med 12/14/17 09:00 Active 1 each PO DAILY Magnesium Hydroxide [Milk of Magnesia] Med 12/13/17 11:00 Active 30 ml PO BID PRN Morphine Med 12/13/17 11:00 Active 2 mg IVPUSH Q2H PRN Multivitamins,Therapeutic [Thera] Med 12/14/17 09:00 Active 1 each PO DAILY Naloxone [Narcan] Med 12/13/17 11:00 Active 0.1 mg IVPUSH Q5M PRN Ondansetron [Zofran] Med 12/13/17 11:00 Active 4 mg IVPUSH Q6H PRN Pantoprazole [ProTONIX] Med 12/14/17 09:00 Active 40 mg PO DAILY Sennosides [Senna] Med 12/13/17 11:00 Active 8.6 mg PO BID PRN Sertraline [Zoloft] Med 12/14/17 09:00 Active 100 mg PO DAILY Simvastatin [Zocor] Med 12/13/17 21:00 Active 10 mg PO BEDTIME Zolpidem [Ambien] Med 12/13/17 12:42 Active 5 mg PO BEDTIME PRN ceFAZolin [Ancef] 2 gm Med 12/13/17 17:00 Active Premix Bag 1 bag IV Q8H hydrALAZINE [Apresoline] Med 12/13/17 16:09 Active 10 mg IVPUSH Q4H PRN Antiembolic Hose [OM.PC] Per Unit Routine Oth 12/13/17 06:50 Ordered Hip Precautions Posterior [OM.PC] Routine Oth 12/13/17 06:46 Ordered Ice Therapy [OM.PC] Per Unit Routine Oth 12/13/17 06:48 Ordered Sequential Compression Device [OM.PC] Per Unit Routine Oth 12/13/17 06:46 Ordered Resuscitation Status Routine Resus Stat 12/13/17 06:47 Ordered Medication Orders Hydrocodone Bitart/Acetaminophen (Stanton 325-5 Mg) 1 - 2 tab PO Q4H PRN PRN Reason: Pain Last Admin: 12/14/17 05:38 Dose: 2 tab Admin: 12/14/17 01:25 Dose: 1 tab Admin: 12/13/17 22:13 Dose: 1 tab Aspirin (Ecotrin) 325 mg PO BID [facility] Bisacodyl (Dulcolax) 5 mg PO DAILY PRN PRN Reason: Constipation Cholecalciferol (Vitamin D3) 1,000 units PO DAILY [facility] Cyclobenzaprine HCl (Flexeril) 10 mg PO TID PRN PRN Reason: Spasms Gabapentin (Neurontin) 300 mg PO TID [facility] Last Admin: 12/13/17 22:13 Dose: 300 mg Hydralazine HCl (Apresoline) 10 mg IVPUSH Q4H PRN PRN Reason: Hypertension Last Admin: 12/13/17 16:19 Dose: 10 mg Cefazolin Sodium/Dextrose 2 gm (/ Premix) 50 mls @ 100 mls/hr IV Q8H [facility] Stop: 12/14/17 09:29 Last Admin: 12/14/17 00:45 Dose: 100 mls/hr Infusion: 12/13/17 16:55 Dose: 100 mls/hr Admin: 12/13/17 16:25 Dose: 100 mls/hr Magnesium Hydroxide (Milk Of Magnesia) 30 ml PO BID PRN PRN Reason: Constipation Morphine Sulfate (Morphine) 2 mg IVPUSH Q2H PRN PRN Reason: Breakthrough Pain Multivitamins (Thera) 1 each PO DAILY [facility] Naloxone HCl (Narcan) 0.1 mg IVPUSH Q5M PRN PRN Reason: Oversedation Ondansetron HCl (Zofran) 4 mg IVPUSH Q6H PRN PRN Reason: Nausea/Vomiting Last Admin: 12/13/17 14:40 Dose: 4 mg Pantoprazole Sodium (Protonix) 40 mg PO DAILY [facility] Senna (Senna) 8.6 mg PO BID PRN PRN Reason: Constipation Sertraline HCl (Zoloft) 100 mg PO DAILY [facility] Simvastatin (Zocor) 10 mg PO BEDTIME [facility] Last Admin: 12/13/17 22:13 Dose: 10 mg Triamterene/HCTZ (Dyazide 25-37.5 Mg) 1 each PO DAILY [facility] Zolpidem Tartrate (Ambien) 5 mg PO BEDTIME PRN PRN Reason: Insomnia - Assessment Assessment (Free Text/Narrative):: POD#1 - left JESSICA - Plan Plan (Free Text/Narrative):: 1. Discharge to home today if cleared by Hospitalist service and meets therapy goals. 2. Hgb 9.7. 3. JESSICA precautions. 4. ASA BID, frequent mobility, TEDs for VTE prophylaxis. The pt's case was discussed with Dr. Cloud.
--- NOTE | 2017-12-14 07:44 | PCM.DCSUM1 ---
Discharge Summary - Hospital Course Brief History: Dora is a 72 yo female who underwent left JESSICA with Dr. Cloud on 12-13-2017. The procedure was completed under spinal anesthesia with MAC. The pt tolerated the procedure well and was admitted to the Medical-Surgical Unit. Medical management was provided by the Hospitalist service. The pt's Hospital course was uneventful. The pt's Hgb on POD#1 was 9.7. On POD#1, 325mg ASA BID was initiated for VTE prophylaxis. SCDs and TEDs were also ordered. A Mepilex dressing was placed at the incision site at the time of surgery and remained clean and dry. The pt participated in P.T. and O.T. and progressed well. She followed the JESSICA precautions. The pt was allowed to WBAT. On POD#1, the pt was deemed appropriate to discharge to home with her . - Discharge Data Discharge Date: 12/14/17 Discharge Disposition: Home, Self-Care 01 Condition: Good - Patient Summary/Data Consults: Consultations 12/13/17 06:46 OT Evaluation and Treatment [CONS] Routine PT Evaluation and Treatment [CONS] Routine 12/13/17 06:47 Consult to Physician [CONS] Routine - Patient Instructions Diet: Usual Diet as Tolerated Activity: Apply Ice, As Tolerated, Elevate Extremity, Full Weight Bearing Activity, Other: Follow the total hip arthroplasty precautions. Driving: Do Not Drive Showering/Bathing: May Shower Wound/Incision Care: Keep Operative Site/Wound Site Clean and Dry, Do NOT Change Dressing Notify Provider of: Fever, Increased Pain, Swelling and Redness, Drainage, Nausea and/or Vomiting Other/Special Instructions: Please get up and moving around EVERY HOUR while awake. This helps to prevent blood clots. Have help with mobility as needed. Please take 325mg aspirin twice daily - this also helps to prevent blood clots. The medication is being used for blood clot prevention and not for pain control, so please use the medication twice daily as directed. Please wear the CATRACHO hose during the day and you may remove them at night. Please schedule for P.T. Complete the P.T. exercises and stretches that were instructed in the Hospital. Follow the total hip arthroplasty precautions. Please use the pain medication as needed. The medication may cause drowsiness and/or constipation. You could use a stool softener like docusate sodium or Colace 100mg twice daily and/or a laxative like Miralax daily for constipation. Contact your primary care provider for further instructions if you are constipated. Try to wean from use of the pain medication as soon as able. Please do not use other medications that may cause drowsiness (other pain medications, anxiety pills, sleeping pills, allergy medications that cause drowsiness) while using the pain medication. Please do not use alcohol while using the pain medication. Use the incentive spirometer often. Please place ice to the hip often. Please elevate the limb to decrease swelling. Keep the Mepilex dressing in place until follow-up. Please notify the Clinic if the dressing is saturated or rolls. Increase protein intake in your diet as this helps with healing. Please call [phone] with questions or concerns. - Discharge Plan *PRESCRIPTION DRUG MONITORING PROGRAM REVIEWED*: No *COPY OF PRESCRIPTION DRUG MONITORING REPORT IN PATIENT FARRUKH: No Prescriptions/Med Rec: Acetaminophen/HYDROcodone [[place] 325-5 MG] 1 - 2 tab PO Q6H PRN #60 tablet PRN Reason: Pain Aspirin [Ecotrin] 325 mg PO BID #84 tab.ec Home Medications: Home Meds Cholecalciferol (Vitamin D3) [Vitamin D3] 2,000 unit PO DAILY 10/01/17 [History] Gabapentin [Neurontin] 300 mg PO TID 10/01/17 [History] Gluc 2KCl/Chondr/[place] Hy/Hy Ac [Glucosamine & Chondroitin Cap] 2 tab PO DAILY [History] Multivitamin [Poly-Vitamin] 1 tab PO DAILY 10/01/17 [History] Omeprazole 40 mg PO DAILY 10/01/17 [History] Pravastatin Sodium 20 mg PO BEDTIME 10/01/17 [History] Sertraline [Zoloft] 100 mg PO DAILY 10/01/17 [History] Triamterene/Hydrochlorothiazid [Triamterene-HCTZ 37.5-25 MG] 1 tab PO DAILY 12/11 [History] Zolpidem Tartrate [Ambien] 5 mg PO BEDTIME PRN 10/01/17 [History] Acetaminophen [Pain Reliever] 500 mg PO Q6H PRN #0 10/04/17 [Rx] Docusate Sodium [Colace] 100 mg PO BID PRN 12/10/17 [History] Acetaminophen/HYDROcodone [[place] 325-5 MG] 1 - 2 tab PO Q6H PRN #60 tablet 12/13 [Rx] Aspirin [Ecotrin] 325 mg PO BID #84 tab.ec 12/13/17 [Rx] Bisacodyl [Dulcolax] 5 mg PO DAILY PRN tablet 12/13/17 [Rx] Magnesium Hydroxide [Milk of Magnesia] 30 ml PO BID PRN cup 12/13/17 [Rx] Sennosides [Senna] 8.6 mg PO BID PRN tablet 12/13/17 [Rx] traMADol HCl [Tramadol HCl] 1 - 2 tab PO Q6H PRN #0 12/13/17 [Rx] Referrals: Nell Martinez PA-C [Physician Street Car Inspector] - Geni Mcnamara MD [Primary Care Provider] - - Patient Data Vitals - Most Recent: Last Vital Signs Temp 98.6 F 12/14/17 05:32 Pulse 83 12/14/17 05:32 Resp 16 12/14/17 06:59 BP 97/80 12/14/17 05:32 Pulse Ox 94 L 12/14/17 05:32 Weight - Most Recent: 210 lb 4.8 oz I&O - Last 24 hours: Intake & Output 12/13/17 12/14/17 12/14/17 22:59 06:59 14:59 Intake Total 300 1900 Output Total 250 750 Balance 50 1150 Lab Results - Last 24 hrs: Laboratory Results - last 24 hr 12/13/17 12/14/17 Range/Units 07:25 06:05 WBC 6.84 (3.98-10.04) K/mm3 RBC 3.55 L (3.98-5.22) M/mm3 Hgb 9.7 L (11.2-15.7) gm/L Hct 30.9 L (34.1-44.9) % MCV 87.0 (79.4-94.8) fl MCH 27.3 (25.6-32.2) pg MCHC 31.4 L (32.2-35.5) g/dl RDW Std Deviation 40.8 (36.4-46.3) fL Plt Count 218 (182-369) K/mm3 MPV 11.2 (9.4-12.3) fl Blood Type A NEGATIVE Gel Antibody Screen Negative Med Orders - Current: Current Medications Hydrocodone Bitart/Acetaminophen ([place] 325-5 Mg) 1 - 2 tab PO Q4H PRN PRN Reason: Pain Last Admin: 12/14/17 05:38 Dose: 2 tab Aspirin (Ecotrin) 325 mg PO BID [facility] Bisacodyl (Dulcolax) 5 mg PO DAILY PRN PRN Reason: Constipation Cholecalciferol (Vitamin D3) 1,000 units PO DAILY [facility] Cyclobenzaprine HCl (Flexeril) 10 mg PO TID PRN PRN Reason: Spasms Gabapentin (Neurontin) 300 mg PO TID [facility] Last Admin: 12/13/17 22:13 Dose: 300 mg Hydralazine HCl (Apresoline) 10 mg IVPUSH Q4H PRN PRN Reason: Hypertension Last Admin: 12/13/17 16:19 Dose: 10 mg Cefazolin Sodium/Dextrose 2 gm (/ Premix) 50 mls @ 100 mls/hr IV Q8H [facility] Stop: 12/14/17 09:29 Last Admin: 12/14/17 00:45 Dose: 100 mls/hr Magnesium Hydroxide (Milk Of Magnesia) 30 ml PO BID PRN PRN Reason: Constipation Morphine Sulfate (Morphine) 2 mg IVPUSH Q2H PRN PRN Reason: Breakthrough Pain Multivitamins (Thera) 1 each PO DAILY [facility] Naloxone HCl (Narcan) 0.1 mg IVPUSH Q5M PRN PRN Reason: Oversedation Ondansetron HCl (Zofran) 4 mg IVPUSH Q6H PRN PRN Reason: Nausea/Vomiting Last Admin: 12/13/17 14:40 Dose: 4 mg Pantoprazole Sodium (Protonix) 40 mg PO DAILY [facility] Senna (Senna) 8.6 mg PO BID PRN PRN Reason: Constipation Sertraline HCl (Zoloft) 100 mg PO DAILY [facility] Simvastatin (Zocor) 10 mg PO BEDTIME [facility] Last Admin: 12/13/17 22:13 Dose: 10 mg Triamterene/HCTZ (Dyazide 25-37.5 Mg) 1 each PO DAILY [facility] Zolpidem Tartrate (Ambien) 5 mg PO BEDTIME PRN PRN Reason: Insomnia Discontinued Medications Acetaminophen (Tylenol) 975 mg PO ONETIME [facility] Stop: 12/13/17 12:00 Last Admin: 12/13/17 08:00 Dose: 975 mg Bupivacaine HCl (Marcaine 0.25%) Confirm Administered Dose 30 ml .ROUTE .STK- MED ONE Stop: 12/13/17 07:42 Last Admin: 12/13/17 10:06 Dose: 30 ml Cefazolin Sodium (Ancef) Confirm Administered Dose 2 gm .ROUTE .STK-MED ONE Stop: 12/13/17 06:56 Last Admin: 12/13/17 10:02 Dose: 2 gm Cefazolin Sodium (Ancef) Confirm Administered Dose 2 gm .ROUTE .STK-MED ONE Stop: 12/13/17 07:42 Morphine Sulfate 8 mg/Epinephrine HCl 0.3 mg/Cefuroxime Sodium 750 mg/Ketorolac Tromethamine 30 mg/Sodium Chloride 27.9 ml 0 mg .XX ONETIME ONE Stop: 12/13/17 09:01 Last Admin: 12/13/17 14:10 Dose: Not Given Diphenhydramine HCl (Benadryl) 25 mg IVPUSH Q6H PRN PRN Reason: itching Stop: 12/13/17 13:00 Famotidine (Pepcid) 20 mg PO Q12H [facility] Fentanyl (Sublimaze) Confirm Administered Dose 100 mcg .ROUTE .STK-MED ONE Stop: 12/13/17 06:56 Fentanyl (Sublimaze) 50 mcg IVPUSH Q5M PRN PRN Reason: pain Stop: 12/13/17 13:00 Hydralazine HCl (Apresoline) 10 mg IVPUSH ONETIME ONE Stop: 12/13/17 17:38 Last Admin: 12/13/17 17:43 Dose: 10 mg Lactated Ringer's (Ringers, Lactated) 1,000 mls @ 125 mls/hr IV ASDIRECTED [facility] Last Admin: 12/13/17 07:20 Dose: 125 mls/hr Lactated Ringer's (Ringers, Lactated) Confirm Administered Dose 1,000 mls @ as directed .ROUTE .STK-MED ONE Stop: 12/13/17 06:56 Lactated Ringer's (Ringers, Lactated) Confirm Administered Dose 1,000 mls @ as directed .ROUTE .STK-MED ONE Stop: 12/13/17 10:30 Promethazine HCl 12.5 mg/ (Sodium Chloride) 50.5 mls @ 100 mls/hr IV ONETIME ONE Stop: 12/13/17 17:28 Last Admin: 12/13/17 17:24 Dose: 100 mls/hr Iodine (Iodine 2% Mild Tincture) Confirm Administered Dose 30 ml .ROUTE .STK- MED ONE Stop: 12/13/17 07:42 Last Admin: 12/13/17 09:58 Dose: 18 ml Ketorolac Tromethamine (Toradol) 15 mg IVPUSH ONETIME ONE Stop: 12/13/17 17:24 Last Admin: 12/13/17 17:30 Dose: 15 mg Lidocaine/Sodium Bicarbonate (Buffered Lidocaine 1% In Ns 8.4%) 0.25 ml IDERM ONETIME PRN PRN Reason: Prior to IV Start Stop: 12/13/17 18:00 Last Admin: 12/13/17 07:19 Dose: 0.25 ml Midazolam HCl (Versed 1 Mg/Ml) Confirm Administered Dose 2 mg .ROUTE .STK-MED ONE Stop: 12/13/17 06:57 Morphine Sulfate (Duramorph Pf) Confirm Administered Dose 10 mg .ROUTE .STK-MED ONE Stop: 12/13/17 07:00 Non-Formulary Medication (Gluc 2kcl/Chondr/Eve[place] Hy/Hy Ac [Glucosamine & Chondroitin Cap]) 2 tab PO DAILY RAUL Ondansetron HCl (Zofran) Confirm Administered Dose 4 mg .ROUTE .STK-MED ONE Stop: 12/13/17 09:05 Ondansetron HCl (Zofran) 4 mg IVPUSH ONETIME PRN PRN Reason: Nausea/Vomiting Stop: 12/13/17 13:00 Oxycodone HCl (Oxycontin) 10 mg PO ONETIME RAUL Stop: 12/13/17 12:00 Last Admin: 12/13/17 08:00 Dose: 10 mg Phenylephrine HCl (Phenylephrine In Ns 100 Mcg/Ml) Confirm Administered Dose 1 mg .ROUTE .STK-MED ONE Stop: 12/13/17 09:10 Pregabalin (Lyrica) 50 mg PO ONETIME RAUL Stop: 12/13/17 12:00 Last Admin: 12/13/17 08:00 Dose: 50 mg Propofol (Diprivan 20 Ml) Confirm Administered Dose 600 mg .ROUTE .STK-MED ONE Stop: 12/13/17 06:56 Propofol (Diprivan 20 Ml) Confirm Administered Dose 200 mg .ROUTE .STK-MED ONE Stop: 12/13/17 09:41 Scopolamine (Transderm-Scop) 1.5 mg TOP ONETIME ONE Stop: 12/13/17 14:45 Last Admin: 12/13/17 14:53 Dose: 1.5 mg Sodium Chloride (Saline Flush) 10 ml FLUSH ASDIRECTED PRN PRN Reason: Keep Vein Open Stop: 12/13/17 18:00 Tranexamic Acid (Cyklokapron) Confirm Administered Dose 1,000 mg .ROUTE .STK- MED ONE Stop: 12/13/17 07:42 Last Admin: 12/13/17 10:04 Dose: 1,000 mg Vancomycin HCl (Vancomycin) Confirm Administered Dose 1 gm .ROUTE .STK-MED ONE Stop: 12/13/17 07:42 Last Admin: 12/13/17 10:07 Dose: 1 gm
--- NOTE | 2017-12-14 08:45 | PCM48HPAN ---
Post Anesthesia Note - EVALUATION WITHIN 48HRS OF ANESTHETIC Vital Signs in Normal Range: Yes Patient Participated in Evaluation: Yes Respiratory Function Stable: Yes Airway Patent: Yes Cardiovascular Function Stable: Yes Hydration Status Stable: Yes Pain Control Satisfactory: Yes Nausea and Vomiting Control Satisfactory: Yes Mental Status Recovered: Yes - COMMENTS/OBSERVATIONS Free Text/Narrative:: Patient had some nausea after surgery but has resolved this am. No other anesthetic complications noted. Pain tolerable.
[2017-12-14] MEDS ORDERED: Non-Formulary Medication 1 Each (Gluc 2kcl/Chondr/Coll Hy/Hy Ac [Glucosamine & Chondroitin PO SCH (09:00)
[2017-12-14] MEDS ORDERED: Cholecalciferol (Vitamin D3) 1,000 Unit Tab PO SCH (09:00)
[2017-12-14] MEDS ORDERED: Sertraline 50 MG Tab PO SCH (09:00)
[2017-12-14] MEDS ORDERED: Multivitamins,Therapeutic Tab PO SCH (09:00)
[2017-12-14] MEDS ORDERED: Pantoprazole 40 MG Tab.CR PO SCH (09:00)
[2017-12-14] MEDS ORDERED: Hydrochlorothiazide/Triamterene 25-37.5 MG Cap PO SCH (09:00)
[2017-12-14] MEDS ORDERED: Aspirin 325 MG Tab.EC PO SCH (09:00)
[2017-12-14] MEDS: Gabapentin 300 MG Cap PO SCH (09:02)
[2017-12-14] MEDS: Ondansetron 4 MG/2 ML SDV IVPUSH PRN (10:43)
--- NOTE | 2017-12-20 09:49 | CR ---
Pelvis and left hip: AP view of pelvis is obtained as well as lateral view of the left hip. Comparison: Prior pelvis and right hip exam of 10/04/17. Bilateral hip prosthesis are noted. Left hip prosthesis is an interval change from previous exam. Components are aligned. Underlying bony structures are intact. Previous lumbar spine surgery is noted. Impression: 1. Previous lumbar spine surgery. Bilateral hip prosthesis. 2. No acute bony abnormality is seen. Diagnostic code #2
--- NOTE | 2017-12-22 12:26 | PCM.OPNOTE ---
- General Post-Op/Procedure Note Date of Surgery/Procedure: 12/13/17 Operative Procedure(s): left total hip arthroplasty Pre Op Diagnosis: left hip osteoarthrosis Post-Op Diagnosis: Same Anesthesia Technique: Epidural, Local, MAC, Spinal Primary Surgeon: Gordy Cloud Anesthesia Provider: Amelia Mccord Field Service Supervisor: Nell Martinez Field Service Supervisor: Brooklyn Earl EBL in mLs: 300 Complications: None Condition: Good Free Text/Narrative:: size 52 size 4 stem MDM
--- NOTE | 2017-12-23 08:57 | OR ---
DATE OF OPERATION: 12/13/2017 SURGEON: Gordy Cloud MD OPERATION PERFORMED: Left total hip arthroplasty. PREOPERATIVE DIAGNOSIS: Left hip osteoarthrosis. POSTOPERATIVE DIAGNOSIS: Left hip osteoarthrosis. ANESTHESIA: Local MAC with spinal. ANESTHESIA PROVIDER: Amelia Mccord. ASSISTANTS: Nell Martinez PA-C and Brooklyn Earl LPN. ESTIMATED BLOOD LOSS: 300 mL. COMPLICATIONS: None. CONDITION: Stable. IMPLANTS: 1. Betzy size 52 mm Tritanium 2 acetabular cup. 2. [place] size 4 Accolade II stem. 3. Betzy size 28 x 48 MDM components. DESCRIPTION OF PROCEDURE: The patient was identified in the preoperative holding area. Proper site was identified and marked by the surgeon. The patient was taken back to the operating theater, where after adequate anesthesia, the patient was placed in the right lateral decubitus position. Axillary roll was placed. Pegs were then placed and were well padded. At this time, the patient's gluteal fold was parallel to the floor. Left hip was then sterilely prepped and draped in the usual sterile fashion. OR time-out was performed. The patient received 2 g of IV Ancef. Standard posterior incision was made, centered over to the greater trochanter. This was taken down to the IT band and gluteal fascia, which was incised along the incisional length. Charnley retractor was then placed and protected the neurovascular structures. At this time, the short external rotators were identified and takedown of short external rotators was done from the level of the piriformis down to the lesser trochanter and a capsulotomy was also performed. The hip was then dislocated. The neck cut was then completed. At this time, attention was turned to the acetabulum. Anterior and posterior acetabular retractors were placed. The pulvinar was removed as well as any remaining labrum. At this time, I had an adequate visualization of the acetabulum. Starting with a 44 reamer, I was able to ream up to a 52, which was found to be stable with a trial. At this time, a 52 mm Tritanium 2 acetabular cup was impacted into place in roughly 45 degrees of abduction and 20 degrees of anteversion. At this time, the MDM liner was then impacted into place. Attention was turned to the femur. The femoral elevator was placed at the level of the lesser trochanter. Box chisel was used out laterally. Starter awl was placed down the canal. At this time, starting with a 0 broach, I was able to broach up to a size 4, which was found to be rotationally and vertically stable. Trial implants were then placed. The patient was found to have adequate evangelical of leg lengths with 0 with full range of motion with no signs of instability. At this time, bone hook was used for dislocation of the trial implants. The size 4 Accolade II stem was then impacted into place along with the constructed MDM components and that were constructed on the back table. Then, were impacted on the Accolade II stem. The hip was then relocated. A #5 Ethibond suture was used for closure of the short external rotators and capsule. 1 liter of dilute Betadine solution was irrigated through the hip along with 3 liters pulse lavage irrigation with Ancef. At this time, vancomycin powder as well as topical tranexamic acid was applied. A #2 barbed suture was used for closure of the IT band and gluteal fascia, 2-0 Vicryl was used subcutaneously, and Prineo was used for the skin. The patient tolerated the procedure well and was sent to PACU in stable condition. BAL /[id number]
== END 2017-12-14 13:35 | disposition home or self-care (01) | DRG 470 ==
LOC: JD.MS 06:42
PROVIDERS: ADMIT Orthopaedic Surgery; ATTEND Orthopaedic Surgery
PROC: 0SRB0JZ Replacement of Left Hip Joint with Synthetic Substitute, Open Approach (ICD-10-PCS; principal; 2017-12-13)
PROC: 3E0U029 Introduction of Other Anti-infective into Joints, Open Approach (ICD-10-PCS; principal; 2017-12-13)
DX: M16.12 Unilateral primary osteoarthritis, left hip (principal); G89.29 Other chronic pain; K21.9 Gastro-esophageal reflux disease without esophagitis; G47.00 Insomnia, unspecified; E78.5 Hyperlipidemia, unspecified; M85.80 Other specified disorders of bone density and structure, unspecified site; I10 Essential (primary) hypertension; F32.9 Major depressive disorder, single episode, unspecified; M54.5 Low back pain; K59.09 Other constipation; E78.00 Pure hypercholesterolemia, unspecified; L82.1 Other seborrheic keratosis; Z79.899 Other long term (current) drug therapy; Z88.6 Allergy status to analgesic agent; Z88.5 Allergy status to narcotic agent; Z79.82 Long term (current) use of aspirin; Z88.7 Allergy status to serum and vaccine; Z98.1 Arthrodesis status
CPT/HCPCS: 01214; 36415; 73501-26-LT; 73501-LT; 80053; 85027; 86850; 86900; 86901; 87641; 94762; 97110-GP; 97116-GP; 97161-GP; 97165-GO; 97535-GO; A9270-GY; C1776; J0171; J0360; J0690; J0697; J1885; J2250; J2270; J2370; J2405; J2550; J2704; J3010; J3370; J3490; J7050; J7120

== ENCOUNTER 2018-09-22 06:00 | Day surgery (SDC) | payer MEDICARE, BC ==
[~2018-09-22 06:00] MED LIST changes: -Lactated Ringers 1,000 ML IV SCH; -Lidocaine 1%/Sod Bicarbonate in NS 8.4% 1 ML Syringe IDERM PRN; -Sodium Chloride 0.9% 10 ML Syringe FLUSH PRN; -oxyCODONE ER 10 MG TAB.ER PO SCH
[2018-09-22] MEDS ORDERED: ceFAZolin 1 GM Vial ONE ×2 (06:15→06:50)
[2018-09-22] MEDS ORDERED: Iodine/Sodium Iodide 2% Tincture 30 ML Bottle ONE (06:15)
--- NOTE | 2018-09-22 06:43 | PCM.PREANE ---
Preanesthetic Assessment - Anesthesia/Transfusion/Family Hx Anesthesia History: Prior Anesthesia Reaction Other Type of Anesthesia Reaction Comment: hard time waking up Family History of Anesthesia Reaction: No Transfusion History: No Prior Transfusion(s) - Review of Systems General: No Symptoms Pulmonary: No Symptoms Cardiovascular: No Symptoms Gastrointestinal: No Symptoms Neurological: No Symptoms Other: Reports: Depression - Physical Assessment NPO Status Date: 09/21/18 NPO Status Time: 00:00 Pulse: 70 O2 Sat by Pulse Oximetry: 97 Respiratory Rate: 16 Blood Pressure: 158/69 Temperature: 36.7 C Height: 1.6 m Weight: 100.516 kg ASA Class: 2 Mental Status: Alert & Oriented x3 Airway Class: Mallampati = 1 Dentition: Reports: Normal Dentition, [place](s) Thyro-Mental Finger Breadths: 2 Mouth Opening Finger Breadths: 2 ROM/Head Extension: Full Lungs: Clear to Auscultation, Normal Respiratory Effort Cardiovascular: Regular Rate, Regular Rhythm - Lab Values: on chart - Imaging/EKG Impressions: NSR rate 76 on chart - Allergies Allergies/Adverse Reactions: Allergies Allergy/AdvReac Type Severity Reaction Status Date / Time oxycodone [From Percocet] Allergy Cannot Verified 09/21/18 14:44 Remember tetanus toxoid, adsorbed Allergy ARM Verified 09/21/18 14:44 SWELLING, FEVER - Anesthesia Plan Pre-Op Medication Ordered: None - Acknowledgements Anesthesia Type Planned: Spinal Pt an Appropriate Candidate for the Planned Anesthesia: Yes Alternatives and Risks of Anesthesia Discussed w Pt/Guardian: Yes Pt/Guardian Understands and Agrees with Anesthesia Plan: Yes PreAnesthesia Questionnaire HEENT History: Reports: Impaired Vision Cardiovascular History: Reports: High Cholesterol, Hypertension Respiratory History: Reports: None Gastrointestinal History: Reports: Chronic Constipation, GERD Other Gastrointestinal History: esophagitis, constipation Genitourinary History: Reports: Other (See Below) Other Genitourinary History: frequency SHERIFF'S SERGEANT History: Reports: None Musculoskeletal History: Reports: Back Pain, Chronic, Osteoarthritis, Other ( See Below) Other Musculoskeletal History: lumbar spasm, hip pain, right knee pain, si joint pain Neurological History: Reports: None, Other (See Below) Other Neuro History: back surgery, L4L5 Psychiatric History: Reports: Depression, Other (See Below) Other Psychiatric History: insomnia Endocrine/Metabolic History: Reports: Osteopenia Hematologic History: Reports: None Immunologic History: Reports: None Oncologic (Cancer) History: Reports: None Dermatologic History: Reports: Other (See Below) Other Dermatologic History: onchomycosis, dermatits, actinic keratosis, seborrheic keratoses - Infectious Disease History Infectious Disease History: Reports: Chicken Pox, Measles, Mumps - Past Surgical History Head Surgeries/Procedures: Reports: None HEENT Surgical History: Reports: Cataract Surgery, Tonsillectomy Cardiovascular Surgical History: Reports: None Respiratory Surgical History: Reports: None GI Surgical History: Reports: Appendectomy, Colonoscopy, EGD Female Surgical History: Reports: D&C Male Surgical History: Reports: None Endocrine Surgical History: Reports: None Neurological Surgical History: Reports: Spinal Fusion Other Neurological Surgeries/Procedures: L4L5 fusion Musculoskeletal Surgical History: Reports: Hip Replacement, Other (See Below) Other Musculoskeletal Surgeries/Procedures:: back surgery Oncologic Surgical History: Reports: None - SUBSTANCE USE Smoking Status *Q: Never Smoker Tobacco Use Within Last Twelve Months: No Second Hand Smoke Exposure: No Days Per Week of Alcohol Use: 0 Number of Drinks Per Day: 0 Total Drinks Per Week: 0 Recreational Drug Use History: No - HOME MEDS Home Medications: Home Meds Gabapentin [Neurontin] 300 mg PO TID 10/01/17 [History] Gluc 2KCl/Chondr/[place] Hy/Hy Ac [Glucosamine & Chondroitin Cap] 2 tab PO DAILY [History] Multivitamin [Poly-Vitamin] 1 tab PO DAILY 10/01/17 [History] Omeprazole 40 mg PO DAILY 10/01/17 [History] Pravastatin Sodium 20 mg PO BEDTIME 10/01/17 [History] Triamterene/Hydrochlorothiazid [Triamterene-HCTZ 37.5-25 MG] 1 tab PO DAILY 12/11 [History] Zolpidem Tartrate [Ambien] 5 mg PO BEDTIME PRN 10/01/17 [History] Docusate Sodium [Colace] 100 mg PO BID PRN 12/10/17 [History] traMADol HCl [Tramadol HCl] 1 - 2 tab PO Q6H PRN #0 12/13/17 [Rx] Acetaminophen [Pain Reliever] 1,000 mg PO Q6H PRN 09/21/18 [History] Aspirin 81 mg PO DAILY 09/21/18 [History] Cholecalciferol (Vitamin D3) [Vitamin D3] 5,000 unit PO DAILY 09/21/18 [History] Escitalopram [Lexapro] 10 mg PO DAILY 09/21/18 [History] - CURRENT (IN HOUSE) MEDS Current Meds: Current Medications Acetaminophen (Tylenol) 650 mg PO ONETIME [facility] Stop: 09/22/18 18:00 Hydrocodone Bitart/Acetaminophen ([place] 325-5 Mg) 1 - 2 tab PO Q4H PRN PRN Reason: Pain Aspirin (Ecotrin) 325 mg PO BID RAUL Bisacodyl (Dulcolax) 5 mg PO DAILY PRN PRN Reason: Constipation Morphine Sulfate 8 mg/Epinephrine HCl 0.3 mg/Cefuroxime Sodium 750 mg/Ketorolac Tromethamine 30 mg/Sodium Chloride 27.9 ml 0 mg .XX ONETIME ONE Stop: 09/22/18 06:20 Cyclobenzaprine HCl (Flexeril) 10 mg PO BID PRN PRN Reason: Spasms Docusate Sodium (Colace) 100 mg PO BID RAUL Famotidine (Pepcid) 20 mg PO Q12H [facility] Lactated Ringer's (Ringers, Lactated) 1,000 mls @ 125 mls/hr IV ASDIRECTED [facility] Stop: 09/22/18 23:00 Cefazolin Sodium/Dextrose 2 gm (/ Premix) 50 mls @ 100 mls/hr IV Q8H [facility] Stop: 09/22/18 22:59 Ketorolac Tromethamine (Toradol) 15 mg IVPUSH Q6H PRN PRN Reason: Pain Lidocaine/Sodium Bicarbonate (Buffered Lidocaine 1% In Ns 8.4%) 0.25 ml IDERM ONETIME PRN PRN Reason: Prior to IV Start Stop: 09/22/18 23:00 Magnesium Hydroxide (Milk Of Magnesia) 30 ml PO BID PRN PRN Reason: Constipation Naloxone HCl (Narcan) 0.1 mg IVPUSH Q5M PRN PRN Reason: Oversedation Ondansetron HCl (Zofran) 4 mg IVPUSH Q6H PRN PRN Reason: Nausea/Vomiting Pregabalin (Lyrica) 50 mg PO ONETIME [facility] Stop: 09/22/18 18:00 Senna (Senna) 8.6 mg PO BID PRN PRN Reason: Constipation Sodium Chloride (Saline Flush) 10 ml FLUSH ASDIRECTED PRN PRN Reason: Keep Vein Open Stop: 09/22/18 23:00 Discontinued Medications Bupivacaine HCl (Marcaine 0.25%) Confirm Administered Dose 30 ml .ROUTE .STK- MED ONE Stop: 09/22/18 06:16 Cefazolin Sodium (Ancef) Confirm Administered Dose 2 gm .ROUTE .STK-MED ONE Stop: 09/22/18 06:16 Iodine (Iodine 2% Mild Tincture) Confirm Administered Dose 30 ml .ROUTE .STK- MED ONE Stop: 09/22/18 06:16 Tranexamic Acid (Cyklokapron) Confirm Administered Dose 1,000 mg .ROUTE .STK- MED ONE Stop: 09/22/18 06:16 Triamcinolone Acetonide (Kenalog-40) Confirm Administered Dose 80 mg .ROUTE .STK -MED ONE Stop: 09/22/18 06:16 Vancomycin HCl (Vancomycin) Confirm Administered Dose 1 gm .ROUTE .STK-MED ONE Stop: 09/22/18 06:16
[2018-09-22] MEDS ORDERED: Propofol 200 MG/20 ML SDV ONE ×3 (06:49→08:25)
[2018-09-22] MEDS ORDERED: Lidocaine 1% 4 ML ONE (06:50)
[2018-09-22] MEDS ORDERED: fentaNYL 100 MCG/2 ML SDV ONE (06:50)
[2018-09-22] MEDS ORDERED: Lactated Ringers 1,000 ML IV SCH (07:10)
[2018-09-22] MEDS ORDERED: Lidocaine 1%/Sod Bicarbonate in NS 8.4% 1 ML Syringe IDERM PRN (07:10)
[2018-09-22] MEDS ORDERED: Sodium Chloride 0.9% 10 ML Syringe FLUSH PRN (07:10)
[2018-09-22] MEDS ORDERED: Acetaminophen 325 MG Tab PO SCH (07:15)
[2018-09-22] MEDS ORDERED: EPINEPHrine 1 MG/ML SDV ONE (07:16)
[2018-09-22] MEDS ORDERED: Ropivacaine 0.5% 5 MG/ML 30 ML SDV ONE (07:16)
[2018-09-22] MEDS ORDERED: Phenylephrine/Normal Saline 100 MCG/ML 10 ML Syringe ONE (07:32)
[2018-09-22] MEDS ORDERED: Lactated Ringers 1,000 ML ONE (07:51)
[2018-09-22] MEDS: Morphine 8 MG, EPINEPHrine 0.3 MG, Cefuroxime 750 MG, Ketorolac 30 MG, Sodium Chloride ... ONE ×10 (08:43→08:44)
[2018-09-22] MEDS: Bupivacaine 0.25% 30 ML SDV ONE ×4 (08:43→09:20)
[2018-09-22] MEDS: Vancomycin 1 GM SDV ONE ×2 (08:44→08:45)
[2018-09-22] MEDS: Triamcinolone Acetonide 40 MG/ML 1 ML MDV ONE ×2 (08:45→09:20)
[2018-09-22] MEDS ORDERED: Magnesium Hydroxide 400 MG/5 ML Susp 30 ML Cup PO PRN (09:30)
[2018-09-22] MEDS ORDERED: Bisacodyl 5 MG Tab PO PRN (09:30)
[2018-09-22] MEDS ORDERED: Cyclobenzaprine 10 MG Tab PO PRN (09:30)
[2018-09-22] MEDS ORDERED: Naloxone 0.4 MG/ML SDV IVPUSH PRN (09:30)
[2018-09-22] MEDS ORDERED: Ondansetron 4 MG/2 ML SDV IVPUSH PRN (09:30)
[2018-09-22] MEDS ORDERED: Ketorolac 15 MG/ML SDV IVPUSH PRN (09:30)
[2018-09-22] MEDS ORDERED: Sennosides 8.6 MG Tab PO PRN (09:30)
--- NOTE | 2018-09-22 09:35 | PCM.POSTAN ---
POST ANESTHESIA ASSESSMENT - MENTAL STATUS Mental Status: Alert, Oriented - VITAL SIGNS Pulse Rate: 87 SaO2: 90 Resp Rate: 12 Blood Pressure: 111/58 Temperature: 37.1 C - RESPIRATORY Respiratory Status: Respiratory Rate WNL, Airway Patent, O2 Saturation Stable, Supplemental Oxygen - CARDIOVASCULAR CV Status: Pulse Rate WNL, Blood Pressure Stable - GASTROINTESTINAL GI Status: No Symptoms - PAIN Pain Score: 0 - POST OP HYDRATION Hydration Status: Adequate & Stable - OBSERVATIONS Free Text/Narrative:: no anesthesia complications noted
[2018-09-22] MEDS ORDERED: Zolpidem 5 MG Tab PO PRN (09:38)
[2018-09-22] MEDS ORDERED: Docusate Sodium 100 MG Cap PO PRN (09:38)
--- NOTE | 2018-09-22 09:56 | PCM.SN ---
- Free Text/Narrative Note: Right selective femoral nerve block at the adductor canal for post-procedure pain control under US guidance requested by Dr. Cloud. Time Out: 941 Start: 941 End: 948 Chart reviewed. Consent signed. Questions answered. Appropriate monitors applied. Time out performed. Right mid-shaft femur identified with ultrasound, scanning medially of femur, the femoral artery in the adductor canal visualized , and the femoral nerve located laterally to the artery. The skin was prepped lateral to the ultrasound probe with chlorahexadine times two. The 21ga 4 insulated block needle was inserted under direct ultrasound guidance into the adductor canal. 25mL of 0.5% ropivacaine with 1:200,000 epinephrine was injected circumferentially around the nerve with intermittent negative aspiration noted. Patient tolerated the procedure well. Sterile technique noted along with sterile gloves, mask, and sterile probe cover. See picture on progress note and vital signs on nurses notes. Block completed in PACU. Lucia Muniz CRNA
--- NOTE | 2018-09-22 10:08 | CR ---
Right knee: AP and lateral portable views of the right knee were obtained. Comparison: No prior knee exam. Knee prosthesis is seen. Components are aligned. Underlying bony structures are intact. Soft tissue air is noted from the surgical procedure. Impression: 1. Satisfactory postop radiographic appearance of recently placed right knee prosthesis. Diagnostic code #2
[2018-09-22] MEDS: ceFAZolin 2 GM in Premix Bag 1 BAG IV SCH ×2 (14:39→23:19)
[2018-09-22] MEDS: Acetaminophen/HYDROcodone 325-5 MG Tab PO PRN ×2 (14:39→20:41)
[2018-09-22] MEDS: Gabapentin 300 MG Cap PO SCH ×2 (14:41→20:36)
[2018-09-22] MEDS: Docusate Sodium 100 MG Cap PO SCH (20:36)
[2018-09-22] MEDS ORDERED: Famotidine 20 MG Tab PO SCH (21:00)
[2018-09-22] MEDS ORDERED: Simvastatin 10 MG Tab PO SCH (21:00)
[2018-09-23] MEDS: Acetaminophen/HYDROcodone 325-5 MG Tab PO PRN ×3 (02:59→13:54)
[2018-09-23] MEDS: ceFAZolin 2 GM in Premix Bag 1 BAG IV SCH (06:28)
--- NOTE | 2018-09-23 07:53 | PCM48HPAN ---
Post Anesthesia Note - EVALUATION WITHIN 48HRS OF ANESTHETIC Vital Signs in Normal Range: Yes Patient Participated in Evaluation: Yes Respiratory Function Stable: Yes Airway Patent: Yes Cardiovascular Function Stable: Yes Hydration Status Stable: Yes Pain Control Satisfactory: Yes Nausea and Vomiting Control Satisfactory: Yes Mental Status Recovered: Yes Pulse Rate: 72 Resp Rate: 16 Temperature: 36.6 C Blood Pressure: 119/49 - COMMENTS/OBSERVATIONS Free Text/Narrative:: no anesthesia complications noted
--- NOTE | 2018-09-23 08:12 | PCM.SURGPN ---
- General Info Date of Service: 09/23/18 POD#: 1 Functional Status: Reports: Pain Controlled, Tolerating Diet, Ambulating, Urinating, Incentive Spirometry, Other (Nursing and pt state pt has been doing well.) - Patient Data Vitals - Most Recent: Last Vital Signs Temp 97.9 F 09/23/18 07:53 Pulse 72 09/23/18 07:53 Resp 16 09/23/18 07:53 BP 119/49 L 09/23/18 07:53 Pulse Ox 92 L 09/23/18 06:27 Weight - Most Recent: 222 lb I&O - Last 24 Hours: Intake & Output 09/22/18 09/23/18 09/23/18 22:59 06:59 14:59 Intake Total 320 Balance 320 Lab Results Last 24 Hrs: Laboratory Results - last 24 hr 09/23/18 09/23/18 Range/Units 05:03 05:03 WBC 10.81 H (3.98-10.04) K/mm3 RBC 3.80 L (3.98-5.22) M/mm3 Hgb 10.4 L (11.2-15.7) gm/L Hct 32.4 L (34.1-44.9) % MCV 85.3 (79.4-94.8) fl MCH 27.4 (25.6-32.2) pg MCHC 32.1 L (32.2-35.5) g/dl RDW Std Deviation 42.6 (36.4-46.3) fL Plt Count 215 (182-369) K/mm3 MPV 11.0 (9.4-12.3) fl Sodium 136 (136-145) mEq/L Potassium 4.5 (3.5-5.1) mEq/L Chloride 101 (98-107) mEq/L Carbon Dioxide 25 (21-32) mEq/L Anion Gap 14.5 (5-15) BUN 38 H (7-18) mg/dL Creatinine 1.2 H (0.55-1.02) mg/dL Est Cr Clr Drug Dosing 33.51 mL/min Estimated GFR (MDRD) 44 (>60) mL/min BUN/Creatinine Ratio 31.7 H (14-18) Glucose 134 H (83-115) mg/dL Calcium 8.7 (8.5-10.1) mg/dL Total Bilirubin 0.2 (0.2-1.0) mg/dL AST 21 (15-37) U/L ALT 16 (14-59) U/L Alkaline Phosphatase 72 (46-116) U/L Total Protein 6.5 (6.4-8.2) g/dl Albumin 3.1 L (3.4-5.0) g/dl Globulin 3.4 gm/dL Albumin/Globulin Ratio 0.9 L (1-2) Med Orders - Current: Current Medications Hydrocodone Bitart/Acetaminophen ([place] 325-5 Mg) 1 - 2 tab PO Q4H PRN PRN Reason: Pain Last Admin: 09/23/18 02:59 Dose: 1 tab Aspirin (Ecotrin) 325 mg PO BID [facility] [place] Bisacodyl (Dulcolax) 5 mg PO DAILY PRN PRN Reason: Constipation Cholecalciferol (Vitamin D3) 5,000 unit PO DAILY [facility] [place] Citalopram Hydrobromide (Celexa) 20 mg PO DAILY [facility] [place] Cyclobenzaprine HCl (Flexeril) 10 mg PO BID PRN PRN Reason: Spasms Last Admin: 09/23/18 06:29 Dose: 10 mg Docusate Sodium (Colace) 100 mg PO BID [facility] [place] Last Admin: 09/22/18 20:36 Dose: 100 mg Gabapentin (Neurontin) 300 mg PO TID [facility] [place] Last Admin: 09/22/18 20:36 Dose: 300 mg Sodium Chloride (Normal Saline) 500 mls @ 250 mls/hr IV .BOLUS ONE Stop: 09/23/18 10:06 Multivitamins (Thera) 1 each PO DAILY [facility] [place] Naloxone HCl (Narcan) 0.1 mg IVPUSH Q5M PRN PRN Reason: Oversedation Ondansetron HCl (Zofran) 4 mg IVPUSH Q6H PRN PRN Reason: Nausea/Vomiting Pantoprazole Sodium (Protonix) 40 mg PO DAILY [facility] [place] Senna (Senna) 8.6 mg PO BID PRN PRN Reason: Constipation Simvastatin (Zocor) 10 mg PO BEDTIME [facility] [place] Last Admin: 09/22/18 20:36 Dose: 10 mg Zolpidem Tartrate (Ambien) 5 mg PO BEDTIME PRN PRN Reason: Insomnia Discontinued Medications Acetaminophen (Tylenol) 650 mg PO ONETIME [facility] [place] Stop: 09/22/18 18:00 Acetaminophen (Tylenol) 975 mg PO ONETIME [facility] [place] Stop: 09/22/18 18:00 Last Admin: 09/22/18 06:30 Dose: 975 mg Bupivacaine HCl (Marcaine 0.25%) Confirm Administered Dose 30 ml .ROUTE .STK- MED ONE Stop: 09/22/18 06:16 Last Admin: 09/22/18 09:20 Dose: 4 ml Cefazolin Sodium (Ancef) Confirm Administered Dose 2 gm .ROUTE .STK-MED ONE Stop: 09/22/18 06:16 Last Admin: 09/22/18 08:40 Dose: 2 gm Cefazolin Sodium (Ancef) Confirm Administered Dose 2 gm .ROUTE .STK-MED ONE Stop: 09/22/18 06:51 Morphine Sulfate 8 mg/Epinephrine HCl 0.3 mg/Cefuroxime Sodium 750 mg/Ketorolac Tromethamine 30 mg/Sodium Chloride 27.9 ml 0 mg .XX ONETIME ONE Stop: 09/22/18 07:31 Last Admin: 09/22/18 08:44 Dose: 788.3 mg Docusate Sodium (Colace) 100 mg PO BID PRN PRN Reason: Constipation Epinephrine HCl (Adrenalin) Confirm Administered Dose 1 mg .ROUTE .STK-MED ONE Stop: 09/22/18 07:17 Famotidine (Pepcid) 20 mg PO Q12H [facility] [place] Fentanyl (Sublimaze) Confirm Administered Dose 100 mcg .ROUTE .STK-MED ONE Stop: 09/22/18 06:51 Lactated Ringer's (Ringers, Lactated) 1,000 mls @ 125 mls/hr IV ASDIRECTED [facility] [place] Stop: 09/22/18 23:00 Last Admin: 09/22/18 06:45 Dose: 125 mls/hr Cefazolin Sodium/Dextrose 2 gm (/ Premix) 50 mls @ 100 mls/hr IV Q8H [facility] [place] Stop: 09/23/18 07:29 Last Admin: 09/23/18 06:28 Dose: 100 mls/hr Lidocaine HCl (Xylocaine-Mpf 1%) Confirm Administered Dose 4 mls @ as directed .ROUTE .STK-MED ONE Stop: 09/22/18 06:51 Lactated Ringer's (Ringers, Lactated) Confirm Administered Dose 1,000 mls @ as directed .ROUTE .STK-MED ONE Stop: 09/22/18 07:52 Iodine (Iodine 2% Mild Tincture) Confirm Administered Dose 30 ml .ROUTE .STK- MED ONE Stop: 09/22/18 06:16 Last Admin: 09/22/18 08:37 Dose: 18 ml Ketorolac Tromethamine (Toradol) 15 mg IVPUSH Q6H PRN PRN Reason: Pain Last Admin: 09/22/18 10:41 Dose: 15 mg Lidocaine/Sodium Bicarbonate (Buffered Lidocaine 1% In Ns 8.4%) 0.25 ml IDERM ONETIME PRN PRN Reason: Prior to IV Start Stop: 09/22/18 23:00 Last Admin: 09/22/18 06:45 Dose: 0.25 ml Magnesium Hydroxide (Milk Of Magnesia) 30 ml PO BID PRN PRN Reason: Constipation Non-Formulary Medication (Gluc 2kcl/Chondr/[place] Hy/Hy Ac [Glucosamine & Chondroitin Cap]) 2 tab PO DAILY [facility] Non-Formulary Medication (Hctz/Triamterene) 1 tab PO DAILY [facility] Phenylephrine HCl (Phenylephrine In Ns 100 Mcg/Ml) Confirm Administered Dose 1 mg .ROUTE .STK-MED ONE Stop: 09/22/18 07:33 Pregabalin (Lyrica) 50 mg PO ONETIME [facility] Stop: 09/22/18 18:00 Last Admin: 09/22/18 06:30 Dose: 50 mg Propofol (Diprivan 20 Ml) Confirm Administered Dose 200 mg .ROUTE .STK-MED ONE Stop: 09/22/18 06:50 Propofol (Diprivan 20 Ml) Confirm Administered Dose 200 mg .ROUTE .STK-MED ONE Stop: 09/22/18 07:50 Propofol (Diprivan 20 Ml) Confirm Administered Dose 200 mg .ROUTE .STK-MED ONE Stop: 09/22/18 08:26 Ropivacaine (Naropin 0.5%) Confirm Administered Dose 30 ml .ROUTE .STK-MED ONE Stop: 09/22/18 07:17 Sodium Chloride (Saline Flush) 10 ml FLUSH ASDIRECTED PRN PRN Reason: Keep Vein Open Stop: 09/22/18 23:00 Tranexamic Acid (Cyklokapron) Confirm Administered Dose 1,000 mg .ROUTE .STK- MED ONE Stop: 09/22/18 06:16 Last Admin: 09/22/18 08:53 Dose: 1,000 mg Triamcinolone Acetonide (Kenalog-40) Confirm Administered Dose 80 mg .ROUTE .STK -MED ONE Stop: 09/22/18 06:16 Last Admin: 09/22/18 09:20 Dose: 80 mg Vancomycin HCl (Vancomycin) Confirm Administered Dose 1 gm .ROUTE .STK-MED ONE Stop: 09/22/18 06:16 Last Admin: 09/22/18 08:45 Dose: 1 gm - Exam Wound/Incisions: Dressing Dry and Intact General: Alert, Cooperative, No Acute Distress Lungs: Normal Respiratory Effort Extremities: Other (NVS intact for BLE. Anette's negative.) - Problem List Review Problem List Initiated/Reviewed/Updated: Yes - My Orders Last 24 Hours: Active Orders 24 hr Category Date Time Status Communication Order [RC] ASDIRECTED Care 09/22/18 10:16 Active Cooling Warming Measures [RC] ASDIRECTED Care 09/22/18 09:33 Inactive Notify Provider [RC] ASDIRECTED Care 09/22/18 09:33 Active Pulse Oximetry [RC] ASDIRECTED Care 09/22/18 09:33 Active Ready for Discharge [RC] PER UNIT ROUTINE Care 09/23/18 08:08 Ordered Verify Patient Consent Obtain [RC] ASDIRECTED Care 09/22/18 07:10 Inactive Vital Signs [RC] Q15M Care 09/22/18 09:33 Inactive Regular Diet [DIET] Diet 09/22/18 Lunch Active Acetaminophen/HYDROcodone [[place] 325-5 MG] Med 09/22/18 09:30 Active 1 - 2 tab PO Q4H PRN Aspirin [Ecotrin] Med 09/23/18 09:00 Active 325 mg PO BID Bisacodyl [Dulcolax] Med 09/22/18 09:30 Active 5 mg PO DAILY PRN Cholecalciferol (Vitamin D3) [Vitamin D3] Med 09/23/18 09:00 Active 5,000 unit PO DAILY Citalopram [Celexa] Med 09/23/18 09:00 Active 20 mg PO DAILY Cyclobenzaprine [Flexeril] Med 09/22/18 09:30 Active 10 mg PO BID PRN Docusate Sodium [Colace] Med 09/22/18 21:00 Active 100 mg PO BID Gabapentin [Neurontin] Med 09/22/18 15:00 Active 300 mg PO TID Multivitamins,Therapeutic [Thera] Med 09/23/18 09:00 Active 1 each PO DAILY Naloxone [Narcan] Med 09/22/18 09:30 Active 0.1 mg IVPUSH Q5M PRN Ondansetron [Zofran] Med 09/22/18 09:30 Active 4 mg IVPUSH Q6H PRN Pantoprazole [ProTONIX] Med 09/23/18 09:00 Active 40 mg PO DAILY Sennosides [Senna] Med 09/22/18 09:30 Active 8.6 mg PO BID PRN Simvastatin [Zocor] Med 09/22/18 21:00 Active 10 mg PO BEDTIME Sodium Chloride 0.9% [Normal Saline] 500 ml Med 09/23/18 08:07 Ordered IV .BOLUS Zolpidem [Ambien] Med 09/22/18 09:38 Active 5 mg PO BEDTIME PRN Medication Administration Instruction [OM.PC] Routine Ot 09/22/18 07:10 Ordered Medication Orders Hydrocodone Bitart/Acetaminophen ([place] 325-5 Mg) 1 - 2 tab PO Q4H PRN PRN Reason: Pain Last Admin: 09/23/18 02:59 Dose: 1 tab Admin: 09/22/18 20:41 Dose: 1 tab Admin: 09/22/18 14:39 Dose: 2 tab Aspirin (Ecotrin) 325 mg PO BID [facility] [place] Bisacodyl (Dulcolax) 5 mg PO DAILY PRN PRN Reason: Constipation Cholecalciferol (Vitamin D3) 5,000 unit PO DAILY [facility] [place] Citalopram Hydrobromide (Celexa) 20 mg PO DAILY [facility] [place] Cyclobenzaprine HCl (Flexeril) 10 mg PO BID PRN PRN Reason: Spasms Last Admin: 09/23/18 06:29 Dose: 10 mg Docusate Sodium (Colace) 100 mg PO BID [facility] [place] Last Admin: 09/22/18 20:36 Dose: 100 mg Gabapentin (Neurontin) 300 mg PO TID [facility] [place] Last Admin: 09/22/18 20:36 Dose: 300 mg Admin: 09/22/18 14:41 Dose: 300 mg Sodium Chloride (Normal Saline) 500 mls @ 250 mls/hr IV .BOLUS ONE Stop: 09/23/18 10:06 Multivitamins (Thera) 1 each PO DAILY [facility] [place] Naloxone HCl (Narcan) 0.1 mg IVPUSH Q5M PRN PRN Reason: Oversedation Ondansetron HCl (Zofran) 4 mg IVPUSH Q6H PRN PRN Reason: Nausea/Vomiting Pantoprazole Sodium (Protonix) 40 mg PO DAILY [facility] [place] Senna (Senna) 8.6 mg PO BID PRN PRN Reason: Constipation Simvastatin (Zocor) 10 mg PO BEDTIME [facility] Last Admin: 09/22/18 20:36 Dose: 10 mg Zolpidem Tartrate (Ambien) 5 mg PO BEDTIME PRN PRN Reason: Insomnia - Assessment Assessment (Free Text/Narrative):: POD#1 - s/p right TKA with left knee cortisone injection - Plan Plan (Free Text/Narrative):: 1. Hgb 10.4. 2. ASA PO BID, frequent mobility, TEDs. 3. The pt will attend outpt therapy. 4. Creat 1.2. Discussed with Hospitalist service and will order IVF bolus and pt is to f/u with PCP next week also. The pt's case was discussed with Dr. Cloud.
--- NOTE | 2018-09-23 08:18 | PCM.DCSUM1 ---
Discharge Summary - Hospital Course Brief History: Dora is a 73 yo female who underwent right TKA with left knee cortisone injection with Dr. Cloud on 09-22-2018. The procedure was completed under spinal anesthesia with MAC. The pt tolerated the procedure well and was admitted to the Medical-Surgical Unit. Medical management was provided by the Hospitalist service. On POD#1, the pt's creat was 1.2 and the pt was given an IVF bolus. The pt's Hgb on POD#1 was 10.4. On POD#1, 325mg ASA BID was initiated for VTE prophylaxis. SCDs and TEDs were also ordered. A Mepilex dressing was placed at the incision site at the time of surgery and remained clean and dry. The pt participated in P.T. and O.T. and progressed well. The pt was allowed to WBAT and used a FWW for mobility. On POD#1, the pt was deemed appropriate to discharge to home. - Discharge Data Discharge Date: 09/23/18 Discharge Disposition: Home, Self-Care 01 Condition: Good - Patient Summary/Data Consults: Consultations 09/22/18 06:19 OT Evaluation and Treatment [CONS] Routine PT Evaluation and Treatment [CONS] Routine - Patient Instructions Diet: Usual Diet as Tolerated Activity: Apply Ice, As Tolerated, Elevate Extremity, Full Weight Bearing Driving: Do Not Drive Showering/Bathing: May Shower Wound/Incision Care: Keep Operative Site/Wound Site Clean and Dry, Do NOT Change Dressing Notify Provider of: Fever, Increased Pain, Swelling and Redness, Drainage, Nausea and/or Vomiting Other/Special Instructions: Please get up and moving around EVERY HOUR while awake. This helps to prevent blood clots. Please use your walker and have help with mobility as needed. Take a short walk in your home every hour while awake. Please take 325mg Aspirin TWICE daily. The aspirin is being used for blood clot prevention and not for pain management so please do not miss a dose of the medication. You do not need to use the 81mg aspirin while you are using the 325mg aspirin twice daily. You could use a medication like Zantac or Pepcid in addition to the to the Protonix to protect your stomach while you are using the aspirin. At home, please complete the exercises that you learned during the Hospital stay. Schedule for physical therapy. Use the pain medication as needed. The medication may cause drowsiness and constipation. Contact your primary care provider for instructions if you are constipated. You may use a stool softener like docusate sodium or Colace 100mg twice daily and/or a laxative like Miralax daily for constipation. Increase your water and fiber intake while you are using the pain medication. Discontinue use of the pain medication as soon as able. You could use the Ultram (tramadol) that you have at home OR the [place] (hydrocodone) prescription that you were provided with this surgery, but please do not use both the medications at the same time. Please do not use other medications that may cause drowsiness (other pain medications, anxiety pills, cold medications, sleeping pills, etc) while using the prescription pain medication. Do not use alcohol while using the pain medication. You may use acetaminophen or Tylenol for pain management, however, please ensure you are not using over 4000 mg or 4 grams of acetaminophen per day from all sources. Your pain medication has 325mg of acetaminophen per tablet. At this time, please do not use ibuprofen (Motrin, Advil) or naproxen ( Aleve) for pain management as you are using the aspirin. When the aspirin course is completed in 4 to 6 weeks, you could use ibuprofen or naproxen for pain management (if this is allowed by your primary care provider). Wear the CATRACHO hose during the day and you may remove these at night. Elevate the limb to decrease swelling. Place ice to the area often. Place a towel between your skin and the blue pad. Use the incentive spirometer often. Take deep breaths throughout the day. Please keep the dressing in place until follow-up. Notify the Clinic if the dressing becomes saturated. Increase your protein intake while you are healing. If you have diabetes, please closely monitor your blood sugars and notify your primary care provider with abnormal values. Elevated blood sugars increases the risk of infection. YOUR KIDNEY LAB TEST elevated a bit from your baseline. This is likely due to surgery and medications. You were given IV fluid today to treat this. Please follow-up with your primary care provider next week for evaluation. Call the Clinic with questions or concerns - [phone]. - Discharge Plan *PRESCRIPTION DRUG MONITORING PROGRAM REVIEWED*: No *COPY OF PRESCRIPTION DRUG MONITORING REPORT IN PATIENT FARRUKH: No Prescriptions/Med Rec: Acetaminophen/HYDROcodone [[place] 325-5 MG] 1 - 2 tab PO Q4H PRN #60 tablet PRN Reason: Pain Aspirin [Ecotrin] 325 mg PO BID #84 tab.ec Home Medications: Home Meds Gabapentin [Neurontin] 300 mg PO TID 10/01/17 [History] Gluc 2KCl/Chondr/Everett Hy/Hy Ac [Glucosamine & Chondroitin Cap] 2 tab PO DAILY [History] Multivitamin [Poly-Vitamin] 1 tab PO DAILY 10/01/17 [History] Omeprazole 40 mg PO DAILY 10/01/17 [History] Pravastatin Sodium 20 mg PO BEDTIME 10/01/17 [History] Triamterene/Hydrochlorothiazid [Triamterene-HCTZ 37.5-25 MG] 1 tab PO DAILY 12/11 [History] Zolpidem Tartrate [Ambien] 5 mg PO BEDTIME PRN 10/01/17 [History] Docusate Sodium [Colace] 100 mg PO BID PRN 12/10/17 [History] traMADol HCl [Tramadol HCl] 1 - 2 tab PO Q6H PRN #0 12/13/17 [Rx] Cholecalciferol (Vitamin D3) [Vitamin D3] 5,000 unit PO DAILY 09/21/18 [History] Escitalopram [Lexapro] 10 mg PO DAILY 09/21/18 [History] Acetaminophen [Pain Reliever] 1,000 mg PO Q6H PRN #0 09/22/18 [Rx] Acetaminophen/HYDROcodone [[place] 325-5 MG] 1 - 2 tab PO Q4H PRN #60 tablet 09/22 [Rx] Aspirin [Ecotrin] 325 mg PO BID #84 tab.ec 09/22/18 [Rx] Bisacodyl [Dulcolax] 5 mg PO DAILY PRN tablet 09/22/18 [Rx] Sennosides [Senna] 8.6 mg PO BID PRN tablet 09/22/18 [Rx] Referrals: Nell Martinez PA-C [Physician Tool And Production Planner] - - Discharge Summary/Plan Comment DC Time >30 min.: No - Patient Data Vitals - Most Recent: Last Vital Signs Temp 97.9 F 09/23/18 07:53 Pulse 72 09/23/18 07:53 Resp 16 09/23/18 07:53 BP 119/49 L 05/31/19 07:53 Pulse Ox 92 L 09/23/18 06:27 Weight - Most Recent: 222 lb I&O - Last 24 hours: Intake & Output 09/22/18 09/23/18 09/23/18 22:59 06:59 14:59 Intake Total 320 Balance 320 Lab Results - Last 24 hrs: Laboratory Results - last 24 hr 09/23/18 09/23/18 Range/Units 05:03 05:03 WBC 10.81 H (3.98-10.04) K/mm3 RBC 3.80 L (3.98-5.22) M/mm3 Hgb 10.4 L (11.2-15.7) gm/L Hct 32.4 L (34.1-44.9) % MCV 85.3 (79.4-94.8) fl MCH 27.4 (25.6-32.2) pg MCHC 32.1 L (32.2-35.5) g/dl RDW Std Deviation 42.6 (36.4-46.3) fL Plt Count 215 (182-369) K/mm3 MPV 11.0 (9.4-12.3) fl Sodium 136 (136-145) mEq/L Potassium 4.5 (3.5-5.1) mEq/L Chloride 101 (98-107) mEq/L Carbon Dioxide 25 (21-32) mEq/L Anion Gap 14.5 (5-15) BUN 38 H (7-18) mg/dL Creatinine 1.2 H (0.55-1.02) mg/dL Est Cr Clr Drug Dosing 33.51 mL/min Estimated GFR (MDRD) 44 (>60) mL/min BUN/Creatinine Ratio 31.7 H (14-18) Glucose 134 H (83-115) mg/dL Calcium 8.7 (8.5-10.1) mg/dL Total Bilirubin 0.2 (0.2-1.0) mg/dL AST 21 (15-37) U/L ALT 16 (14-59) U/L Alkaline Phosphatase 72 (46-116) U/L Total Protein 6.5 (6.4-8.2) g/dl Albumin 3.1 L (3.4-5.0) g/dl Globulin 3.4 gm/dL Albumin/Globulin Ratio 0.9 L (1-2) Med Orders - Current: Current Medications Hydrocodone Bitart/Acetaminophen ([place] 325-5 Mg) 1 - 2 tab PO Q4H PRN PRN Reason: Pain Last Admin: 09/23/18 02:59 Dose: 1 tab Aspirin (Ecotrin) 325 mg PO BID [facility] Bisacodyl (Dulcolax) 5 mg PO DAILY PRN PRN Reason: Constipation Cholecalciferol (Vitamin D3) 5,000 unit PO DAILY [facility] Citalopram Hydrobromide (Celexa) 20 mg PO DAILY [facility] Cyclobenzaprine HCl (Flexeril) 10 mg PO BID PRN PRN Reason: Spasms Last Admin: 09/23/18 06:29 Dose: 10 mg Docusate Sodium (Colace) 100 mg PO BID [facility] Last Admin: 09/22/18 20:36 Dose: 100 mg Gabapentin (Neurontin) 300 mg PO TID [facility] Last Admin: 09/22/18 20:36 Dose: 300 mg Sodium Chloride (Normal Saline) 500 mls @ 250 mls/hr IV .BOLUS ONE Stop: 09/23/18 10:06 Multivitamins (Thera) 1 each PO DAILY [facility] Naloxone HCl (Narcan) 0.1 mg IVPUSH Q5M PRN PRN Reason: Oversedation Ondansetron HCl (Zofran) 4 mg IVPUSH Q6H PRN PRN Reason: Nausea/Vomiting Pantoprazole Sodium (Protonix) 40 mg PO DAILY [facility] Senna (Senna) 8.6 mg PO BID PRN PRN Reason: Constipation Simvastatin (Zocor) 10 mg PO BEDTIME [facility] Last Admin: 09/22/18 20:36 Dose: 10 mg Zolpidem Tartrate (Ambien) 5 mg PO BEDTIME PRN PRN Reason: Insomnia Discontinued Medications Acetaminophen (Tylenol) 650 mg PO ONETIME [facility] Stop: 09/22/18 18:00 Acetaminophen (Tylenol) 975 mg PO ONETIME [facility] Stop: 09/22/18 18:00 Last Admin: 09/22/18 06:30 Dose: 975 mg Bupivacaine HCl (Marcaine 0.25%) Confirm Administered Dose 30 ml .ROUTE .STK- MED ONE Stop: 09/22/18 06:16 Last Admin: 09/22/18 09:20 Dose: 4 ml Cefazolin Sodium (Ancef) Confirm Administered Dose 2 gm .ROUTE .STK-MED ONE Stop: 09/22/18 06:16 Last Admin: 09/22/18 08:40 Dose: 2 gm Cefazolin Sodium (Ancef) Confirm Administered Dose 2 gm .ROUTE .STK-MED ONE Stop: 09/22/18 06:51 Morphine Sulfate 8 mg/Epinephrine HCl 0.3 mg/Cefuroxime Sodium 750 mg/Ketorolac Tromethamine 30 mg/Sodium Chloride 27.9 ml 0 mg .XX ONETIME ONE Stop: 09/22/18 07:31 Last Admin: 09/22/18 08:44 Dose: 788.3 mg Docusate Sodium (Colace) 100 mg PO BID PRN PRN Reason: Constipation Epinephrine HCl (Adrenalin) Confirm Administered Dose 1 mg .ROUTE .STK-MED ONE Stop: 09/22/18 07:17 Famotidine (Pepcid) 20 mg PO Q12H [facility] Fentanyl (Sublimaze) Confirm Administered Dose 100 mcg .ROUTE .STK-MED ONE Stop: 09/22/18 06:51 Lactated Ringer's (Ringers, Lactated) 1,000 mls @ 125 mls/hr IV ASDIRECTED [facility] Stop: 09/22/18 23:00 Last Admin: 09/22/18 06:45 Dose: 125 mls/hr Cefazolin Sodium/Dextrose 2 gm (/ Premix) 50 mls @ 100 mls/hr IV Q8H [facility] Stop: 09/23/18 07:29 Last Admin: 09/23/18 06:28 Dose: 100 mls/hr Lidocaine HCl (Xylocaine-Mpf 1%) Confirm Administered Dose 4 mls @ as directed .ROUTE .STK-MED ONE Stop: 09/22/18 06:51 Lactated Ringer's (Ringers, Lactated) Confirm Administered Dose 1,000 mls @ as directed .ROUTE .STK-MED ONE Stop: 09/22/18 07:52 Iodine (Iodine 2% Mild Tincture) Confirm Administered Dose 30 ml .ROUTE .STK- MED ONE Stop: 09/22/18 06:16 Last Admin: 09/22/18 08:37 Dose: 18 ml Ketorolac Tromethamine (Toradol) 15 mg IVPUSH Q6H PRN PRN Reason: Pain Last Admin: 09/22/18 10:41 Dose: 15 mg Lidocaine/Sodium Bicarbonate (Buffered Lidocaine 1% In Ns 8.4%) 0.25 ml IDERM ONETIME PRN PRN Reason: Prior to IV Start Stop: 09/22/18 23:00 Last Admin: 09/22/18 06:45 Dose: 0.25 ml Magnesium Hydroxide (Milk Of Magnesia) 30 ml PO BID PRN PRN Reason: Constipation Non-Formulary Medication (Gluc 2kcl/Chondr/Everett Hy/Hy Ac [Glucosamine & Chondroitin Cap]) 2 tab PO DAILY [facility] Non-Formulary Medication (Hctz/Triamterene) 1 tab PO DAILY [facility] Phenylephrine HCl (Phenylephrine In Ns 100 Mcg/Ml) Confirm Administered Dose 1 mg .ROUTE .STK-MED ONE Stop: 09/22/18 07:33 Pregabalin (Lyrica) 50 mg PO ONETIME [facility] Stop: 09/22/18 18:00 Last Admin: 09/22/18 06:30 Dose: 50 mg Propofol (Diprivan 20 Ml) Confirm Administered Dose 200 mg .ROUTE .STK-MED ONE Stop: 09/22/18 06:50 Propofol (Diprivan 20 Ml) Confirm Administered Dose 200 mg .ROUTE .STK-MED ONE Stop: 09/22/18 07:50 Propofol (Diprivan 20 Ml) Confirm Administered Dose 200 mg .ROUTE .STK-MED ONE Stop: 09/22/18 08:26 Ropivacaine (Naropin 0.5%) Confirm Administered Dose 30 ml .ROUTE .STK-MED ONE Stop: 09/22/18 07:17 Sodium Chloride (Saline Flush) 10 ml FLUSH ASDIRECTED PRN PRN Reason: Keep Vein Open Stop: 09/22/18 23:00 Tranexamic Acid (Cyklokapron) Confirm Administered Dose 1,000 mg .ROUTE .STK- MED ONE Stop: 09/22/18 06:16 Last Admin: 09/22/18 08:53 Dose: 1,000 mg Triamcinolone Acetonide (Kenalog-40) Confirm Administered Dose 80 mg .ROUTE .STK -MED ONE Stop: 09/22/18 06:16 Last Admin: 09/22/18 09:20 Dose: 80 mg Vancomycin HCl (Vancomycin) Confirm Administered Dose 1 gm .ROUTE .STK-MED ONE Stop: 09/22/18 06:16 Last Admin: 09/22/18 08:45 Dose: 1 gm
[2018-09-23] MEDS ORDERED: Sodium Chloride 0.9% 500 ML IV ONE (08:25)
[2018-09-23] MEDS: Docusate Sodium 100 MG Cap PO SCH (08:40)
[2018-09-23] MEDS: Gabapentin 300 MG Cap PO SCH (08:40)
[2018-09-23] MEDS ORDERED: Cholecalciferol (Vitamin D3) 5,000 UNIT Tab PO SCH (09:00)
[2018-09-23] MEDS ORDERED: Pantoprazole 40 MG Tab.CR PO SCH (09:00)
[2018-09-23] MEDS ORDERED: Aspirin 325 MG Tab.EC PO SCH (09:00)
[2018-09-23] MEDS ORDERED: HCTZ PO SCH (09:00)
[2018-09-23] MEDS ORDERED: Citalopram 20 MG Tab PO SCH (09:00)
[2018-09-23] MEDS ORDERED: Non-Formulary Medication 1 Each (Gluc 2kcl/Chondr/Coll Hy/Hy Ac [Glucosamine & Chondroitin PO SCH (09:00)
[2018-09-23] MEDS ORDERED: TRIAMTERENE PO SCH (09:00)
[2018-09-23] MEDS ORDERED: Multivitamins,Therapeutic Tab PO SCH (09:00)
--- NOTE | 2018-09-26 17:03 | PCM.OPNOTE ---
- General Post-Op/Procedure Note Date of Surgery/Procedure: 09/22/18 Operative Procedure(s): right total knee arthroplasty with left knee corticosteroid injection Pre Op Diagnosis: bilateral knee osteoarthrosis Post-Op Diagnosis: Same Anesthesia Technique: Local, MAC, Spinal Primary Surgeon: Gordy Cloud Anesthesia Provider: Raymundo Killian Production Control Manager: Nell Martinez Production Control Manager: Brooklyn Earl EBL in mLs: 10 Complications: None Condition: Good Free Text/Narrative:: size 4/4 9mm 32x10
--- NOTE | 2018-09-27 11:21 | OR ---
DATE OF OPERATION: 09/22/2018 SURGEON: Gordy Cloud MD OPERATION PERFORMED: Right total knee arthroplasty with left knee corticosteroid injection. PREOPERATIVE DIAGNOSIS: Bilateral knee osteoarthritis. POSTOPERATIVE DIAGNOSIS: Bilateral knee osteoarthritis. ANESTHESIA: Local MAC with spinal. ANESTHESIA PROVIDER: Raymundo Killian CRNA. ASSISTANTS: Nell Martinez PA-C; and Brooklyn Earl LPN. ESTIMATED BLOOD LOSS: 10 mL. COMPLICATIONS: None. CONDITION: Stable. IMPLANT: 1. Betzy size 4 cemented PS femur. 2. Equality size 4 cemented Fenton tibial baseplate. 3. Equality size 4, 9 mm PS X3 polyethylene. 4. Betzy size 32 x 10 mm cemented asymmetric patella. DESCRIPTION OF PROCEDURE: The patient was identified in the preop holding area. Proper site was marked and identified by the surgeon. The patient was taken back to the operating theater. After adequate anesthesia, the patient's right lower extremity had a nonsterile tourniquet applied and it was sterilely prepped and draped in the usual sterile fashion. OR time-out was performed. The patient received 2 g IV Ancef. At this time, the right lower extremity was exsanguinated. Tourniquet was insufflated to 300 mmHg. Standard medial parapatellar incision was made. Medial parapatellar arthrotomy was created. Deep fibers of the MCL were raised and anterior fat pad was resected. At this time, attention was turned to the patella. Patella measured 22, it was resected to a 13 for a 32 x 10 mm patella. Drill holes were then drilled and found to be in adequate position. The drill was then drilled in the distal femur and the intramedullary distal femoral cutting guide was then placed. 8 mm was resected off the distal femur and was found to be an adequate resection. Sizing guide was placed. It was found to be a size 4 press-fit CR femur that was shown on the implant record at the beginning of this dictation. The drill holes were drilled for the epicondylar axis using Whitesides line and epicondyles as reference. At this time, the 4-in - 1 cutting block was placed. An anterior posterior and anterior and posterior chamfer cuts were then completed. Box cut was then completed at this time. Attention was turned to the tibia. The posterior medial lateral retractors were placed. The extramedullary tibial guide was placed. It was placed in the old footprint of the ACL. It was aligned with the center of the ankle and 0 degrees of slope, 9 mm was then resected off the unaffected side. There was found to be an acceptable reduction. At this time, posterior osteophytes were removed along with medial and lateral meniscus. A trial implant was placed with a correct sized tibia that was mentioned at the beginning of the dictation. A Equality size 4, 9 mm PS X3 CS polyethylene insert was then placed. The patient's knee was brought through range of motion. The patella was tracking centrally and was stable to varus and valgus stress. Alignment was found to be roughly at 0 degrees. The tibia was stamped and drilled in proper rotation. Cement was mixed on the back table. The universal tibial base plate was impacted in place and cemented. Next, the Equality size 4 cemented PS femur was cement and impacted into place and the Betzy size 4, 9 mm PS X3 polyethylene insert was placed. The patient's knee was brought into full extension. The patella was then cemented in place at this time. Excess cement was removed. One liter dilute Betadine solution was irrigated through the knee along with 3 L of pulse lavage irrigation with Ancef. Periarticular injection was then completed. The patient's knee was brought through a range of motion. Once the cement had time to set up and it was found to be stable to varus valgus stress, the patella was tracking centrally with full range of motion. At this time, a #2 barbed suture was used for closure of the medial parapatellar arthrotomy. Topical tranexamic acid was placed. 2-0 Vicryl was used subcutaneously, Prineo was used for the skin. The patient tolerated the procedure well and was sent to the PACU in stable condition. After this procedure was completed, under sterile technique, 2 mL of 40 mg Kenalog and 4 mL of 0.25% Marcaine were injected to the left knee. The patient tolerated both procedures well and was sent to PACU in stable condition. BAL /[id number] TANIA
== END 2018-09-23 14:15 | disposition home or self-care (01) ==
LOC: JD.SDS 06:00 → JD.MS 06:09 → JD.SDS 09-23 14:15
PROVIDERS: ATTEND Orthopaedic Surgery
DX: M17.0 Bilateral primary osteoarthritis of knee (principal); I10 Essential (primary) hypertension; E78.00 Pure hypercholesterolemia, unspecified; F32.9 Major depressive disorder, single episode, unspecified; K21.9 Gastro-esophageal reflux disease without esophagitis; G47.00 Insomnia, unspecified; G89.18 Other acute postprocedural pain; Z88.5 Allergy status to narcotic agent; Z88.7 Allergy status to serum and vaccine; Z98.1 Arthrodesis status; Z96.642 Presence of left artificial hip joint; Z79.82 Long term (current) use of aspirin; Z79.899 Other long term (current) drug therapy
CPT/HCPCS: 20610; 27447; 36415; 64447; 73560; 80053; 85027; 97110; 97116; 97161; 97165; 97535; A9270; C1713; C1776; J0171; J0690; J0697; J1885; J2001; J2270; J2370; J2704; J2795; J3010; J3301; J3370; J3490; J7040; J7120; 01402; 64450

== ENCOUNTER 2018-12-12 09:05 | Day surgery (SDC) | payer MEDICARE, BC ==
--- NOTE | 2018-12-09 11:57 | PCM.PREANE ---
Preanesthetic Assessment - Anesthesia/Transfusion/Family Hx Anesthesia History: Prior Anesthesia Reaction (hard time waking up) Other Type of Anesthesia Reaction Comment: hard time waking up Family History of Anesthesia Reaction: No Transfusion History: No Prior Transfusion(s) Intubation History: Unknown - Review of Systems General: No Symptoms Pulmonary: No Symptoms Cardiovascular: No Symptoms (History of HTN), Dyspnea on Exertion Gastrointestinal: No Symptoms (GERD) Neurological: No Symptoms (L4-L5 fusion/History of insomnia) Other: Reports: Depression - Physical Assessment NPO Status Date: 12/12/18 NPO Status Time: 00:01 Height: 1.6 m Weight: 101 kg ASA Class: 2 Mental Status: Alert & Oriented x3 Airway Class: Mallampati = 3 Dentition: Reports: Normal Dentition, West(s), Caries Thyro-Mental Finger Breadths: 2 Mouth Opening Finger Breadths: 2 ROM/Head Extension: Full Lungs: Clear to Auscultation, Normal Respiratory Effort Cardiovascular: Regular Rate, Regular Rhythm, No Murmurs - Lab Values: Laboratory Last Values MRSA (PCR) Negative 11/22/18 11:01 All labs reviewed and noted and within acceptable ranges to proceed with scheduled procedure. - Imaging/EKG Impressions: EKG: NSR rate=76 CXR: 2018: negative - Allergies Allergies/Adverse Reactions: Allergies Allergy/AdvReac Type Severity Reaction Status Date / Time tetanus toxoid, adsorbed Allergy ARM Verified 12/08/18 15:30 SWELLING, FEVER oxycodone [From Percocet] AdvReac Other Verified 12/08/18 15:30 - Anesthesia Plan Pre-Op Medication Ordered: None - Acknowledgements Anesthesia Type Planned: Spinal (Left adductor canal block under US guidance for post operative pain control requested by Dr. Cloud.) Pt an Appropriate Candidate for the Planned Anesthesia: Yes Alternatives and Risks of Anesthesia Discussed w Pt/Guardian: Yes Pt/Guardian Understands and Agrees with Anesthesia Plan: Yes PreAnesthesia Questionnaire HEENT History: Reports: Impaired Vision Cardiovascular History: Reports: High Cholesterol, Hypertension Respiratory History: Reports: None Gastrointestinal History: Reports: Chronic Constipation, GERD Other Gastrointestinal History: esophagitis, constipation Genitourinary History: Reports: Other (See Below) Other Genitourinary History: frequency ROUTE SALES REPRESENTATIVE History: Reports: None Musculoskeletal History: Reports: Back Pain, Chronic, Osteoarthritis, Other ( See Below) Other Musculoskeletal History: lumbar spasm, hip pain, right knee pain, si joint pain Neurological History: Reports: None, Other (See Below) Other Neuro History: back surgery, L4L5 Psychiatric History: Reports: Depression, Other (See Below) Other Psychiatric History: insomnia Endocrine/Metabolic History: Reports: Osteopenia Hematologic History: Reports: None Immunologic History: Reports: None Oncologic (Cancer) History: Reports: None Dermatologic History: Reports: Other (See Below) Other Dermatologic History: onchomycosis, dermatits, actinic keratosis, seborrheic keratoses - Infectious Disease History Infectious Disease History: Reports: Chicken Pox, Measles, Mumps - Past Surgical History Head Surgeries/Procedures: Reports: None HEENT Surgical History: Reports: Cataract Surgery, Tonsillectomy Cardiovascular Surgical History: Reports: None Respiratory Surgical History: Reports: None GI Surgical History: Reports: Appendectomy, Colonoscopy, EGD Female Surgical History: Reports: D&C Male Surgical History: Reports: None Endocrine Surgical History: Reports: None Neurological Surgical History: Reports: Spinal Fusion Other Neurological Surgeries/Procedures: L4L5 fusion Musculoskeletal Surgical History: Reports: Hip Replacement, Knee Replacement, Other (See Below) Other Musculoskeletal Surgeries/Procedures:: back surgery Oncologic Surgical History: Reports: None Dermatological Surgical History: Reports: None - SUBSTANCE USE Smoking Status *Q: Never Smoker Recreational Drug Use History: No - HOME MEDS Home Medications: Home Meds Gabapentin [Neurontin] 300 mg PO BID 10/01/17 [History] Gluc 2KCl/Chondr/Everett Hy/Hy Ac [Glucosamine & Chondroitin Cap] 2 tab PO DAILY [History] Multivitamin [Poly-Vitamin] 1 tab PO DAILY 10/01/17 [History] Omeprazole 40 mg PO Q48H 10/01/17 [History] Pravastatin Sodium 20 mg PO BEDTIME 10/01/17 [History] Triamterene/Hydrochlorothiazid [Triamterene-HCTZ 37.5-25 MG] 1 tab PO DAILY 12/11 [History] Zolpidem Tartrate [Ambien] 5 mg PO BEDTIME PRN 10/01/17 [History] Docusate Sodium [Colace] 100 mg PO BID PRN 12/10/17 [History] Cholecalciferol (Vitamin D3) [Vitamin D3] 5,000 unit PO DAILY 09/21/18 [History] Escitalopram [Lexapro] 10 mg PO DAILY 09/21/18 [History] Acetaminophen [Pain Reliever] 1,000 mg PO Q6H PRN #0 09/22/18 [Rx] Aspirin [Halfprin] 81 mg PO DAILY 12/08/18 [History] - CURRENT (IN HOUSE) MEDS Current Meds: Current Medications Lactated Ringer's (Ringers, Lactated) 1,000 mls @ 125 mls/hr IV ASDIRECTED [facility] Stop: 12/12/18 23:00 Lidocaine/Sodium Bicarbonate (Buffered Lidocaine 1% In Ns 8.4%) 0.25 ml IDERM ONETIME PRN PRN Reason: Prior to IV Start Stop: 12/12/18 18:00 Sodium Chloride (Saline Flush) 10 ml FLUSH ASDIRECTED PRN PRN Reason: Keep Vein Open Stop: 12/12/18 18:00
[~2018-12-12 09:05] MED LIST changes: -Acetaminophen 325 MG Tab PO SCH; +Lactated Ringers 1,000 ML IV SCH; +Lidocaine 1%/Sod Bicarbonate in NS 8.4% 1 ML Syringe IDERM PRN; -Pregabalin 25 MG Cap PO SCH; +Ropivacaine 0.5% 5 MG/ML 30 ML SDV ONE; +Sodium Chloride 0.9% 10 ML Syringe FLUSH PRN
[2018-12-12] MEDS ORDERED: Phenylephrine/Normal Saline 100 MCG/ML 10 ML Syringe ONE (10:04)
[2018-12-12] MEDS ORDERED: Ondansetron 4 MG/2 ML SDV ONE (10:04)
[2018-12-12] MEDS ORDERED: EPINEPHrine 1 MG/ML SDV ONE (10:04)
[2018-12-12] MEDS ORDERED: ceFAZolin 1 GM Vial ONE (10:04)
[2018-12-12] MEDS ORDERED: fentaNYL 100 MCG/2 ML SDV ONE ×2 (10:04→10:54)
[2018-12-12] MEDS ORDERED: Lactated Ringers 1,000 ML ONE (10:04)
[2018-12-12] MEDS ORDERED: Propofol 200 MG/20 ML SDV ONE (10:04)
[2018-12-12] MEDS: Iodine/Sodium Iodide 2% Tincture 30 ML Bottle ONE ×3 (10:40→12:05)
[2018-12-12] MEDS: Bupivacaine 0.25% 10 ML SDV ONE ×2 (10:41→12:10)
[2018-12-12] MEDS: ceFAZolin 1 GM Vial ONE ×2 (10:41→12:06)
[2018-12-12] MEDS ORDERED: Lidocaine 1% 2 ML ONE (11:07)
[2018-12-12] MEDS ORDERED: ePHEDrine 50 MG/ML SDV IVPUSH PRN (11:13)
[2018-12-12] MEDS ORDERED: fentaNYL 100 MCG/2 ML SDV IVPUSH PRN (11:13)
[2018-12-12] MEDS ORDERED: diphenhydrAMINE 50 MG/ML SDV IVPUSH PRN (11:13)
[2018-12-12] MEDS ORDERED: HYDROmorphone 0.5 MG/0.5 ML Syringe IVPUSH PRN (11:13)
[2018-12-12] MEDS ORDERED: Ondansetron 4 MG/2 ML SDV IVPUSH PRN ×2 (11:13→13:00)
[2018-12-12] MEDS ORDERED: Phenylephrine 1 MG in Sodium Chloride 0.9% 10 ML IV SCH (11:15)
[2018-12-12] MEDS: Morphine 8 MG, EPINEPHrine 0.3 MG, Cefuroxime 750 MG, Ketorolac 30 MG, Sodium Chloride ... ONE ×10 (11:36→12:10)
[2018-12-12] MEDS: Vancomycin 1 GM SDV ONE ×2 (11:36→12:14)
[2018-12-12] MEDS ORDERED: ePHEDrine/Normal Saline 25 MG/5 ML Syringe ONE (11:59)
--- NOTE | 2018-12-12 12:57 | PCM48HPAN ---
Post Anesthesia Note - EVALUATION WITHIN 48HRS OF ANESTHETIC Vital Signs in Normal Range: Yes Patient Participated in Evaluation: Yes Respiratory Function Stable: Yes Airway Patent: Yes Cardiovascular Function Stable: Yes Hydration Status Stable: Yes Pain Control Satisfactory: Yes Nausea and Vomiting Control Satisfactory: Yes Mental Status Recovered: Yes Vital Signs: Last Vital Signs Temp 97.2f 12/12/18 12:45 Pulse 74 12/12/18 12:45 Resp 7 12/12/18 12:45 BP 149/67 12/12/18 12:45 Pulse Ox 100 12/12/18 12:45
--- NOTE | 2018-12-12 12:58 | PCM.POSTAN ---
POST ANESTHESIA ASSESSMENT - MENTAL STATUS Mental Status: Alert - VITAL SIGNS Vital Signs: Last Vital Signs Temp 97.2f 12/12/18 12:45 Pulse 74 12/12/18 12:45 Resp 7 12/12/18 12:45 BP 149/67 12/12/18 12:45 Pulse Ox 100 12/12/18 12:45 - RESPIRATORY Respiratory Status: Respiratory Rate WNL, Airway Patent, O2 Saturation Stable, Supplemental Oxygen - CARDIOVASCULAR CV Status: Pulse Rate WNL, Blood Pressure Stable - GASTROINTESTINAL GI Status: No Symptoms - POST OP HYDRATION Hydration Status: Adequate & Stable
[2018-12-12] MEDS ORDERED: Cyclobenzaprine 10 MG Tab PO PRN (13:00)
[2018-12-12] MEDS ORDERED: Naloxone 0.4 MG/ML SDV IVPUSH PRN (13:00)
[2018-12-12] MEDS ORDERED: Acetaminophen/oxyCODONE 325-5 MG Tab PO PRN (13:00)
[2018-12-12] MEDS ORDERED: Bisacodyl 5 MG Tab PO PRN (13:00)
[2018-12-12] MEDS ORDERED: Sennosides 8.6 MG Tab PO PRN (13:00)
[2018-12-12] MEDS ORDERED: Morphine 2 MG/ML Syringe IVPUSH PRN (13:00)
[2018-12-12] MEDS ORDERED: Magnesium Hydroxide 400 MG/5 ML Susp 30 ML Cup PO PRN (13:00)
--- NOTE | 2018-12-12 13:12 | PCM.SN ---
- Free Text/Narrative Note: Left selective femoral nerve block at the adductor canal for post-procedure pain control Time Out: 1252 Start: 1252 End: 1259 Chart reviewed. Consent signed. Questions answered. Appropriate monitors applied. Time out performed. Left mid-shaft femur evaluated with ultrasound. Scanning medially femur, I was able to identify the femoral artery in the adductor canal. The saphenous nerve was lateral to the artery. The skin was prepped lateral to the ultrasound probe with chlorahexadine. The 21ga 4 insulated block needle was inserted under direct ultrasound guidance into the adductor canal. 25mL of 0.5% ropivacaine with 1:200,000 epinephrine was injected circumferentially around the nerve with intermittent negative aspiration every 5mL. Patient tolerated the procedure well. No complications noted. See pictures on progress note and vital signs on nurses notes. Block completed postoperatively. Ravin Tucker CRNA
[2018-12-12] MEDS ORDERED: Pantoprazole 40 MG Tab.CR PO SCH (14:00)
--- NOTE | 2018-12-12 14:04 | CR ---
Left knee: AP and lateral views of the left knee were obtained. Comparison: No prior left knee study is available. Knee prosthesis is seen. Soft tissue air is noted from the surgical procedure. Underlying bony structures are intact. Impression: 1. Satisfactory postoperative radiographic appearance of recently placed left knee prosthesis. Diagnostic code #2
[2018-12-12] MEDS ORDERED: Pantoprazole 40 MG Tab.CR PO ONE (18:15)
[2018-12-12] MEDS: ceFAZolin 2 GM in Premix Bag 1 BAG IV SCH (18:19)
[2018-12-12] MEDS: Ketorolac 15 MG/ML SDV IVPUSH PRN (19:05)
[2018-12-12] MEDS ORDERED: Simvastatin 10 MG Tab PO SCH (21:00)
[2018-12-12] MEDS ORDERED: Zolpidem 5 MG Tab PO PRN (21:00)
[2018-12-12] MEDS ORDERED: Famotidine 20 MG Tab PO SCH (21:00)
[2018-12-12] MEDS: Acetaminophen/HYDROcodone 325-5 MG Tab PO PRN (21:45)
[2018-12-12] MEDS: Gabapentin 300 MG Cap PO SCH (21:45)
[2018-12-12] MEDS: Docusate Sodium 100 MG Cap PO SCH (21:45)
[2018-12-13] MEDS: Acetaminophen/HYDROcodone 325-5 MG Tab PO PRN ×3 (03:54→13:12)
[2018-12-13] MEDS: ceFAZolin 2 GM in Premix Bag 1 BAG IV SCH ×2 (03:54→10:54)
[2018-12-13] MEDS: Ketorolac 15 MG/ML SDV IVPUSH PRN (06:31)
--- NOTE | 2018-12-13 07:49 | PCM48HPAN ---
Post Anesthesia Note - EVALUATION WITHIN 48HRS OF ANESTHETIC Vital Signs in Normal Range: Yes Patient Participated in Evaluation: Yes Respiratory Function Stable: Yes Airway Patent: Yes Cardiovascular Function Stable: Yes Hydration Status Stable: Yes Pain Control Satisfactory: Yes Nausea and Vomiting Control Satisfactory: Yes Mental Status Recovered: Yes Vital Signs: Last Vital Signs Temp 36.6 C 12/13/18 03:51 Pulse 79 12/13/18 03:51 Resp 14 12/13/18 03:51 BP 122/51 L 12/13/18 03:51 Pulse Ox 93 L 12/13/18 03:51 Vitals noted and reviewed.
[2018-12-13] MEDS ORDERED: Sodium Chloride 0.9% 500 ML IV ONE (08:05)
--- NOTE | 2018-12-13 08:19 | PCM.SURGPN ---
- General Info Date of Service: 12/13/18 POD#: 1 Functional Status: Reports: Pain Controlled, Tolerating Diet, Ambulating, Urinating, Incentive Spirometry, Other (The pt states she has noted less pain with use of Toradol.) - Patient Data Vitals - Most Recent: Last Vital Signs Temp 97.9 F 12/13/18 03:51 Pulse 79 12/13/18 03:51 Resp 14 12/13/18 03:51 BP 122/51 L 12/13/18 03:51 Pulse Ox 93 L 12/13/18 03:51 Weight - Most Recent: 230 lb 1.6 oz I&O - Last 24 Hours: Intake & Output 12/12/18 12/13/18 12/13/18 22:59 06:59 14:59 Intake Total 100 100 Balance 100 100 Lab Results Last 24 Hrs: Laboratory Results - last 24 hr 12/12/18 12/13/18 12/13/18 Range/Units 09:20 05:29 05:29 WBC 6.85 (3.98-10.04) K/mm3 RBC 3.65 L (3.98-5.22) M/mm3 Hgb 10.0 L (11.2-15.7) gm/L Hct 32.5 L (34.1-44.9) % MCV 89.0 D (79.4-94.8) fl MCH 27.4 (25.6-32.2) pg MCHC 30.8 L (32.2-35.5) g/dl RDW Std Deviation 46.1 (36.4-46.3) fL Plt Count 216 (182-369) K/mm3 MPV 10.7 (9.4-12.3) fl Sodium 141 (136-145) mEq/L Potassium 4.8 (3.5-5.1) mEq/L Chloride 103 (98-107) mEq/L Carbon Dioxide 29 (21-32) mEq/L Anion Gap 13.8 (5-15) BUN 30 H (7-18) mg/dL Creatinine 1.4 H (0.55-1.02) mg/dL Est Cr Clr Drug Dosing 27.46 mL/min Estimated GFR (MDRD) 37 (>60) mL/min BUN/Creatinine Ratio 21.4 H (14-18) Glucose 132 H (83-115) mg/dL Calcium 8.5 (8.5-10.1) mg/dL Total Bilirubin 0.2 (0.2-1.0) mg/dL AST 24 (15-37) U/L ALT 19 (14-59) U/L Alkaline Phosphatase 84 (46-116) U/L Total Protein 6.5 (6.4-8.2) g/dl Albumin 3.0 L (3.4-5.0) g/dl Globulin 3.5 gm/dL Albumin/Globulin Ratio 0.9 L (1-2) Urine Color Yellow (Yellow) Urine Appearance Clear (Clear) Urine pH 7.0 (5.0-8.0) Ur Specific [place] 1.025 (1.005-1.030) Urine Protein Negative (Negative) Urine Glucose (UA) Negative (Negative) Urine Ketones Negative (Negative) Urine Occult Blood Negative (Negative) Urine Nitrite Negative (Negative) Urine Bilirubin Negative (Negative) Urine Urobilinogen 0.2 (0.2-1.0) Ur Leukocyte Esterase Negative (Negative) Urine RBC 0-5 (0-5) /hpf Urine WBC 0-5 (0-5) /hpf Ur Squamous Epith Cells 0-5 (0-5) /hpf Urine Bacteria Few (FEW) /hpf Urine Mucus Few (FEW) /hpf Med Orders - Current: Current Medications Hydrocodone Bitart/Acetaminophen ([place] 325-5 Mg) 1 - 2 tab PO Q4H PRN PRN Reason: Pain Last Admin: 12/13/18 03:54 Dose: 2 tab Aspirin (Ecotrin) 325 mg PO BID [facility] Bisacodyl (Dulcolax) 5 mg PO DAILY PRN PRN Reason: Constipation Cholecalciferol (Vitamin D3) 5,000 unit PO DAILY [facility] Citalopram Hydrobromide (Celexa) 20 mg PO DAILY [facility] Cyclobenzaprine HCl (Flexeril) 10 mg PO TID PRN PRN Reason: Spasms Last Admin: 12/13/18 06:31 Dose: 10 mg Docusate Sodium (Colace) 100 mg PO BID [facility] Last Admin: 12/12/18 21:45 Dose: 100 mg Gabapentin (Neurontin) 300 mg PO BID [facility] Last Admin: 12/12/18 21:45 Dose: 300 mg Cefazolin Sodium/Dextrose 2 gm (/ Premix) 50 mls @ 100 mls/hr IV Q8H [facility] Stop: 12/13/18 11:29 Last Admin: 12/13/18 03:54 Dose: 100 mls/hr Sodium Chloride (Normal Saline) 500 mls @ 500 mls/hr IV .BOLUS ONE Stop: 12/13/18 09:04 Magnesium Hydroxide (Milk Of Magnesia) 30 ml PO BID PRN PRN Reason: Constipation Morphine Sulfate (Morphine) 2 mg IVPUSH Q2H PRN PRN Reason: Breakthrough Pain Multivitamins (Thera) 1 each PO DAILY [facility] Naloxone HCl (Narcan) 0.1 mg IVPUSH Q5M PRN PRN Reason: Oversedation Ondansetron HCl (Zofran) 4 mg IVPUSH Q6H PRN PRN Reason: Nausea/Vomiting Pantoprazole Sodium (Protonix) 40 mg PO Q48H [facility] Last Admin: 12/12/18 18:20 Dose: Not Given Senna (Senna) 8.6 mg PO BID PRN PRN Reason: Constipation Simvastatin (Zocor) 10 mg PO BEDTIME [facility] Last Admin: 12/12/18 21:45 Dose: 10 mg Zolpidem Tartrate (Ambien) 5 mg PO BEDTIME PRN PRN Reason: Insomnia Discontinued Medications Bupivacaine HCl (Sensorcaine-Mpf 0.25%) Confirm Administered Dose 30 ml .ROUTE .STK-MED ONE Stop: 12/12/18 09:32 Last Admin: 12/12/18 12:10 Dose: 30 ml Cefazolin Sodium (Ancef) Confirm Administered Dose 2 gm .ROUTE .STK-MED ONE Stop: 12/12/18 09:32 Last Admin: 12/12/18 12:06 Dose: 2 gm Cefazolin Sodium (Ancef) Confirm Administered Dose 2 gm .ROUTE .STK-MED ONE Stop: 12/12/18 10:05 Morphine Sulfate 8 mg/Epinephrine HCl 0.3 mg/Cefuroxime Sodium 750 mg/Ketorolac Tromethamine 30 mg/Sodium Chloride 27.9 ml 0 mg .XX ONETIME ONE Stop: 12/12/18 11:31 Last Admin: 12/12/18 12:10 Dose: 788.3 mg Diphenhydramine HCl (Benadryl) 25 mg IVPUSH Q6H PRN PRN Reason: pruritis Stop: 12/12/18 23:00 Ephedrine Sulfate (Ephedrine Sulfate) 5 mg IVPUSH ASDIRECTED PRN PRN Reason: Hypotension Stop: 12/12/18 23:00 Ephedrine Sulfate (Ephedrine In Ns) Confirm Administered Dose 25 mg .ROUTE .STK- MED ONE Stop: 12/12/18 12:00 Epinephrine HCl (Adrenalin) Confirm Administered Dose 1 mg .ROUTE .STK-MED ONE Stop: 12/12/18 10:05 Famotidine (Pepcid) 20 mg PO Q12H [facility] Fentanyl (Sublimaze) Confirm Administered Dose 100 mcg .ROUTE .STK-MED ONE Stop: 12/12/18 10:05 Fentanyl (Sublimaze) Confirm Administered Dose 100 mcg .ROUTE .STK-MED ONE Stop: 12/12/18 10:55 Fentanyl (Sublimaze) 50 mcg IVPUSH Q5M PRN PRN Reason: Pain Stop: 12/12/18 23:00 Last Admin: 12/12/18 13:39 Dose: 50 mcg Hydromorphone HCl (Dilaudid) 0.5 mg IVPUSH Q15M PRN PRN Reason: Pain (severe 7-10) Stop: 12/12/18 23:00 Lactated Ringer's (Ringers, Lactated) 1,000 mls @ 125 mls/hr IV ASDIRECTED RAUL Stop: 12/12/18 23:00 Last Admin: 12/12/18 09:30 Dose: 125 mls/hr Lidocaine HCl (Xylocaine-Mpf 1%) Confirm Administered Dose 10 mls @ as directed .ROUTE .STK-MED ONE Stop: 12/12/18 10:05 Lactated Ringer's (Ringers, Lactated) Confirm Administered Dose 1,000 mls @ as directed .ROUTE .STK-MED ONE Stop: 12/12/18 10:05 Lidocaine HCl (Xylocaine-Mpf 1%) Confirm Administered Dose 2 mls @ as directed .ROUTE .STK-MED ONE Stop: 12/12/18 11:08 Phenylephrine HCl 1 mg/ Sodium (Chloride) 10.1 mls @ 1 mls/sec IV TITRATE RAUL; Protocol Stop: 12/12/18 23:00 Iodine (Iodine 2% Mild Tincture) Confirm Administered Dose 30 ml .ROUTE .STK- MED ONE Stop: 12/12/18 09:32 Last Admin: 12/12/18 12:04 Dose: 18 ml Ketorolac Tromethamine (Toradol) 15 mg IVPUSH Q6H PRN PRN Reason: Pain Last Admin: 12/13/18 06:31 Dose: 15 mg Lidocaine/Sodium Bicarbonate (Buffered Lidocaine 1% In Ns 8.4%) 0.25 ml IDERM ONETIME PRN PRN Reason: Prior to IV Start Stop: 12/12/18 18:00 Last Admin: 12/12/18 09:29 Dose: 0.25 ml Ondansetron HCl (Zofran) Confirm Administered Dose 4 mg .ROUTE .STK-MED ONE Stop: 12/12/18 10:05 Ondansetron HCl (Zofran) 4 mg IVPUSH ONETIME PRN PRN Reason: Nausea/Vomiting Stop: 12/12/18 23:00 Oxycodone/Acetaminophen (Percocet 325-5 Mg) 1 - 2 tab PO Q4H PRN PRN Reason: Pain Pantoprazole Sodium (Protonix) 40 mg PO ONETIME ONE Stop: 12/12/18 18:16 Last Admin: 12/12/18 18:19 Dose: 40 mg Glucosamine & Chondroitin Pt Own Med 2 each PO DAILY [facility] Phenylephrine HCl (Phenylephrine In Ns 100 Mcg/Ml) Confirm Administered Dose 1 mg .ROUTE .STK-MED ONE Stop: 12/12/18 10:05 Propofol (Diprivan 20 Ml) Confirm Administered Dose 400 mg .ROUTE .STK-MED ONE Stop: 12/12/18 10:05 Ropivacaine (Naropin 0.5%) Confirm Administered Dose 30 ml .ROUTE .STK-MED ONE Stop: 12/12/18 06:09 Sodium Chloride (Saline Flush) 10 ml FLUSH ASDIRECTED PRN PRN Reason: Keep Vein Open Stop: 12/12/18 18:00 Tranexamic Acid (Cyklokapron) Confirm Administered Dose 1,000 mg .ROUTE .STK- MED ONE Stop: 12/12/18 09:32 Last Admin: 12/12/18 12:23 Dose: 1,000 mg Vancomycin HCl (Vancomycin) Confirm Administered Dose 1 gm .ROUTE .STK-MED ONE Stop: 12/12/18 09:32 Last Admin: 12/12/18 12:14 Dose: 1 gm - Exam Wound/Incisions: Dressing Dry and Intact General: Alert, Cooperative, No Acute Distress Lungs: Normal Respiratory Effort Extremities: Other (NVS intact for BLE. Anette's negative.) - Problem List Review Problem List Initiated/Reviewed/Updated: Yes - My Orders Last 24 Hours: Active Orders 24 hr Category Date Time Status Cooling Warming Measures [RC] ASDIRECTED Care 12/12/18 11:13 Inactive Notify Provider [RC] ASDIRECTED Care 12/12/18 11:13 Active Pulse Oximetry [RC] ASDIRECTED Care 12/12/18 11:13 Active Ready for Discharge [RC] PER UNIT ROUTINE Care 12/13/18 08:05 Active Vital Signs [RC] Q15M Care 12/12/18 11:13 Inactive Regular Diet [DIET] Diet 12/12/18 Lunch Active Acetaminophen/HYDROcodone [[place] 325-5 MG] Med 12/12/18 14:06 Active 1 - 2 tab PO Q4H PRN Aspirin [Ecotrin] Med 12/13/18 09:00 Active 325 mg PO BID Bisacodyl [Dulcolax] Med 12/12/18 13:00 Active 5 mg PO DAILY PRN Cholecalciferol (Vitamin D3) [Vitamin D3] Med 12/13/18 09:00 Active 5,000 unit PO DAILY Citalopram [Celexa] Med 12/13/18 09:00 Active 20 mg PO DAILY Cyclobenzaprine [Flexeril] Med 12/12/18 13:00 Active 10 mg PO TID PRN Docusate Sodium [Colace] Med 12/12/18 21:00 Active 100 mg PO BID Gabapentin [Neurontin] Med 12/12/18 21:00 Active 300 mg PO BID Magnesium Hydroxide [Milk of Magnesia] Med 12/12/18 13:00 Active 30 ml PO BID PRN Morphine Med 12/12/18 13:00 Active 2 mg IVPUSH Q2H PRN Multivitamins,Therapeutic [Thera] Med 12/13/18 09:00 Active 1 each PO DAILY Naloxone [Narcan] Med 12/12/18 13:00 Active 0.1 mg IVPUSH Q5M PRN Ondansetron [Zofran] Med 12/12/18 13:00 Active 4 mg IVPUSH Q6H PRN Pantoprazole [ProTONIX] Med 12/12/18 14:00 Active 40 mg PO Q48H Sennosides [Senna] Med 12/12/18 13:00 Active 8.6 mg PO BID PRN Simvastatin [Zocor] Med 12/12/18 21:00 Active 10 mg PO BEDTIME Sodium Chloride 0.9% [Normal Saline] 500 ml Med 12/13/18 08:05 Active IV .BOLUS Zolpidem [Ambien] Med 12/12/18 21:00 Active 5 mg PO BEDTIME PRN ceFAZolin [Ancef] 2 gm Med 12/12/18 19:00 Active Premix Bag 1 bag IV Q8H Medication Orders Hydrocodone Bitart/Acetaminophen ([place] 325-5 Mg) 1 - 2 tab PO Q4H PRN PRN Reason: Pain Last Admin: 12/13/18 03:54 Dose: 2 tab Admin: 12/12/18 21:45 Dose: 2 tab Aspirin (Ecotrin) 325 mg PO BID [facility] Bisacodyl (Dulcolax) 5 mg PO DAILY PRN PRN Reason: Constipation Cholecalciferol (Vitamin D3) 5,000 unit PO DAILY [facility] Citalopram Hydrobromide (Celexa) 20 mg PO DAILY [facility] Cyclobenzaprine HCl (Flexeril) 10 mg PO TID PRN PRN Reason: Spasms Last Admin: 12/13/18 06:31 Dose: 10 mg Docusate Sodium (Colace) 100 mg PO BID [facility] Last Admin: 12/12/18 21:45 Dose: 100 mg Gabapentin (Neurontin) 300 mg PO BID [facility] Last Admin: 12/12/18 21:45 Dose: 300 mg Cefazolin Sodium/Dextrose 2 gm (/ Premix) 50 mls @ 100 mls/hr IV Q8H [facility] Stop: 12/13/18 11:29 Last Admin: 12/13/18 03:54 Dose: 100 mls/hr Infusion: 12/12/18 18:49 Dose: 100 mls/hr Admin: 12/12/18 18:19 Dose: 100 mls/hr Sodium Chloride (Normal Saline) 500 mls @ 500 mls/hr IV .BOLUS ONE Stop: 12/13/18 09:04 Magnesium Hydroxide (Milk Of Magnesia) 30 ml PO BID PRN PRN Reason: Constipation Morphine Sulfate (Morphine) 2 mg IVPUSH Q2H PRN PRN Reason: Breakthrough Pain Multivitamins (Thera) 1 each PO DAILY [facility] Naloxone HCl (Narcan) 0.1 mg IVPUSH Q5M PRN PRN Reason: Oversedation Ondansetron HCl (Zofran) 4 mg IVPUSH Q6H PRN PRN Reason: Nausea/Vomiting Pantoprazole Sodium (Protonix) 40 mg PO Q48H [facility] Last Admin: 12/12/18 18:20 Dose: Senna (Senna) 8.6 mg PO BID PRN PRN Reason: Constipation Simvastatin (Zocor) 10 mg PO BEDTIME [facility] Last Admin: 12/12/18 21:45 Dose: 10 mg Zolpidem Tartrate (Ambien) 5 mg PO BEDTIME PRN PRN Reason: Insomnia - Assessment Assessment (Free Text/Narrative):: POD#1 - left TKA - Plan Plan (Free Text/Narrative):: 1. Hgb 10.0. 2. GFR 37. Will provide 500cc bolus IVF and have pt f/u with PCP this week. 3. Discharge to home today. 4. 325mg ASA PO BID. The pt's case was discussed with Dr. Cloud and MD evaluated the pt today.
[2018-12-13] MEDS: Docusate Sodium 100 MG Cap PO SCH (08:27)
[2018-12-13] MEDS: Gabapentin 300 MG Cap PO SCH (08:27)
[2018-12-13] MEDS ORDERED: CHONDROITIN PO SCH (09:00)
[2018-12-13] MEDS ORDERED: GLUCOSAMINE PO SCH (09:00)
[2018-12-13] MEDS ORDERED: Aspirin 325 MG Tab.EC PO SCH (09:00)
[2018-12-13] MEDS ORDERED: Cholecalciferol (Vitamin D3) 5,000 UNIT Tab PO SCH (09:00)
[2018-12-13] MEDS ORDERED: Citalopram 20 MG Tab PO SCH (09:00)
[2018-12-13] MEDS ORDERED: Multivitamins,Therapeutic Tab PO SCH (09:00)
--- NOTE | 2018-12-16 11:49 | PCM.OPNOTE ---
- General Post-Op/Procedure Note Date of Surgery/Procedure: 12/12/18 Operative Procedure(s): left total knee arthroplasty Pre Op Diagnosis: left knee osteoarthrosis Post-Op Diagnosis: Same Anesthesia Technique: Local, MAC, Spinal Primary Surgeon: Gordy Cloud Anesthesia Provider: Lucia Muniz Parts Room Assistant: Nell Martinez Parts Room Assistant: Brooklyn Earl EBShira in mLs: 5 Complications: None Condition: Good Free Text/Narrative:: / 9mm 32x10
--- NOTE | 2018-12-16 12:29 | OR ---
DATE OF OPERATION: 12/12/2018 SURGEON: Gordy Cloud MD OPERATION PERFORMED: Left total knee arthroplasty. PREOPERATIVE DIAGNOSIS: Left knee osteoarthrosis. POSTOPERATIVE DIAGNOSIS: Left knee osteoarthrosis. ANESTHESIA: Local MAC with spinal. ANESTHESIA PROVIDER: Lucia Muniz CRNA. ASSISTANTS: Nell Martinez PA-C and Brooklyn Earl LPN. ESTIMATED BLOOD LOSS: 5 mL. COMPLICATIONS: None. CONDITION: Stable. IMPLANTS: 1. [place] size 4 cemented PS femur. 2. Betzy size 4 cemented [place] tibial base plate. 3. [place] size 4, 9 mm PS X3 polyethylene. 4. Betzy size 32 x 10 mm cemented asymmetric patella. DESCRIPTION OF PROCEDURE: The patient was identified in the preop holding area. Proper site was marked and identified by the surgeon. The patient was taken back to the operating theater. After adequate anesthesia, the patient's left lower extremity had a nonsterile tourniquet applied and it was sterilely prepped and draped in the usual sterile fashion. OR time-out was performed. The patient received 2 g IV Ancef. At this time, the left lower extremity was exsanguinated. Tourniquet was insufflated to 300 mmHg. Standard medial parapatellar incision was made. Medial parapatellar arthrotomy was created. Deep fibers of the MCL were raised and anterior fat pad was resected. At this time, attention was turned to the patella. Patella measured 22, it was resected to a 13 for a 32 x 10 mm patella. Drill holes were then drilled and found to be in adequate position. The drill was then drilled in the distal femur and the intramedullary distal femoral cutting guide was then placed. 8 mm was resected off the distal femur and was found to be an adequate resection. Sizing guide was placed. It was found to be a size 4 cemented PS femur that was shown on the implant record at the beginning of this dictation. The drill holes were drilled for the epicondylar axis using [place] line and epicondyles as reference. At this time, the 4-in-1 cutting block was placed. An anterior posterior and anterior and posterior chamfer cuts were then completed. Box cut was completed at this time. Attention was turned to the tibia. The posterior medial lateral retractors were placed. The extramedullary tibial guide was placed. It was placed in the old footprint of the ACL. It was aligned with the center of the ankle and 0 degrees of slope, 9 mm was then resected off the unaffected side. There was found to be an acceptable reduction. At this time, posterior osteophytes were removed along with medial and lateral meniscus. A trial implant was placed with a correct sized tibia that was mentioned at the beginning of the dictation. A trial Betzy size 4, 9 mm PS polyethylene insert was then placed. The patient's knee was brought through range of motion. The patella was tracking centrally and was stable to varus and valgus stress. Alignment was found to be roughly at 0 degrees. The tibia was stamped and drilled in proper rotation. All cut surfaces were irrigated and dried. The universal tibial base plate was impacted in place. Next, the [place] size 4 cemented PS femur impacted into place and the [place] size 4, 9 mm PS X3 polyethylene insert was placed. The patient's knee was brought into full extension. Excess cement was removed. The patella was then cemented in place at this time. One liter dilute Betadine solution was irrigated through the knee along with 3 L of pulse lavage irrigation with Ancef. Periarticular injection was then completed. The patient's knee was brought through a range of motion. Once the cement had time to set up and it was found to be stable to varus valgus stress, the patella was tracking centrally with full range of motion. At this time, a #2 barbed suture was used for closure of the medial parapatellar arthrotomy. Topical tranexamic acid was placed. 2-0 Vicryl was used subcutaneously, Prineo was used for the skin. The patient tolerated the procedure well and was sent to the PACU in stable condition. BAL /[id number] TANIA
== END 2018-12-13 13:35 | disposition home or self-care (01) ==
LOC: JD.SDS 09:05 → JD.MS 09:07 → JD.SDS 12-13 13:35
PROVIDERS: ATTEND Orthopaedic Surgery
DX: M17.12 Unilateral primary osteoarthritis, left knee (principal); M16.12 Unilateral primary osteoarthritis, left hip; I10 Essential (primary) hypertension; E78.00 Pure hypercholesterolemia, unspecified; K21.9 Gastro-esophageal reflux disease without esophagitis; F32.9 Major depressive disorder, single episode, unspecified; G47.00 Insomnia, unspecified; G89.18 Other acute postprocedural pain; Z98.1 Arthrodesis status; Z88.5 Allergy status to narcotic agent; Z88.7 Allergy status to serum and vaccine; Z96.641 Presence of right artificial hip joint; Z96.651 Presence of right artificial knee joint; Z79.1 Long term (current) use of non-steroidal anti-inflammatories (NSAID); Z79.82 Long term (current) use of aspirin; Z79.899 Other long term (current) drug therapy
CPT/HCPCS: 27447; 36415; 64447; 73560; 80053; 81001; 85027; 87641; 97110; 97116; 97165; 97535; A9270; C1713; C1776; J0171; J0690; J0697; J1885; J2001; J2270; J2370; J2405; J2704; J2795; J3010; J3370; J3490; J7040; J7050; J7120; 01402; 64450